=== PATIENT | female | born 1930 | race Caucasian/White ===

== ENCOUNTER 2016-09-27 14:35 | Inpatient (IN) | payer MEDICARE ==
[~2016-09-27] VITALS: Ht 152.4 cm; Wt 54.5 kg
[2016-09-27 14:35] VITALS: BP 163/64; PULSE 89; RESP 19; O2SAT 95
--- NOTE | 2016-09-27 15:22 | ED.REPORT ---
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 The patient did not hit her head and denies other injury/trauma. She was able to crawl but could not ambulate after the fall, due to pain. The patient denies head pain, neck pain, hand pain, wrist pain, or other symptoms. EMS found the patient with a BP of 150/80, a pulse of 100, and otherwise normal vital signs. Her last meal was 1200 today. Nursing Notes Stated Complaint: GLF RIGHT HIP PAIN Chief Complaint: Multiple Trauma/Fall Nursing Notes Reviewed: Yes Allergies: Coded Allergies: Cephalosporins (Verified Allergy, Severe, tongue swelling, itching, ) hydromorphone (Verified Allergy, Severe, itchy all over body, 09/27/16) codeine (Verified Allergy, Intermediate, vomiting, 09/27/16) Scheduled Calcium Carbonate (Calcium) 600 Mg Tablet 600 MG PO DAILY Cholecalciferol (Vitamin D3) (Vitamin D3) 1,000 Unit Tab.chew 1,000 UNIT PO DAILY Clotrimazole (Clotrimazole) 10 Mg Donna 10 MG BUCCAL TID Cyanocobalamin (Vitamin B12) 500 Mcg Tablet 1,000 MCG PO DAILY Estradiol (Estradiol) 1 Mg Tablet 1 MG PO DAILY Furosemide (Furosemide) 20 Mg Tab 20 MG PO QAM Lactobacillus Acidophilus (Acidophilus Lactobacillus) 1 Each Capsule 1 CAPSULE PO BID Niacinamide (Niacin) 500 Mg Tablet 500 MG PO TIDWM Omeprazole Magnesium (Prilosec Otc) 20 Mg Tablet.dr 20 MG PO QAM Penicillin V Potassium (Penicillin V Potassium) 500 Mg Tablet 500 MG PO BID Propranolol HCl (Propranolol HCl) 40 Mg Tablet 20 MG PO BID General Time Seen by MD: 15:20 Chief Complaint Fall Hx Obtained From: Patient Arrived By: Ambulance Onset Occurred: 1 - 4 hours ago Symptom Duration: Since onset Caused by: Fall on ground Location: Hip right Quality: Painful Severity: Current: Moderate Severity: Maximum: Moderate Pertinent Negative: Relieved by nothing Context: Immunizations Unknown Recent Healthcare: No recent doctor visit Past Medical History Past Medical History Osteomyelitis of the jaw on chronic antibiotics Past Surgical History Lower jaw amputation with fibular autograft prosthetic jaw Reports: Appendectomy, Cholecystectomy, Hysterectomy, Tonsillectomy Smoking History Unknown if Ever Smoker Social History Other Social History: Good social support Ambulatory Status Independent Review of Systems Constitutional: Denies: Fever Respiratory: Denies: Non-productive cough, Shortness of breath Musculoskeletal: Reports: Joint pain (Right hip), Denies: Extremity pain, Neck pain Neurologic: Reports: Problem walking (Due to pain), Denies: Headache Complete sys rev & neg: except as marked. GI: Denies: Diarrhea, Vomiting Physical Exam Initial Vital Signs Vital Signs (First) Date Time Temp Pulse Resp B/P Pulse Ox O2 Delivery O2 Flow Rate FiO2 09/27/16 14:35 36.6 89 19 163/64 95 Room Air Initial VS: Reviewed Head / Eyes: Atraumatic, Normocephalic Respiratory: Breath sounds normal, Clear to auscultation, No respiratory distress Cardiovascular: Regular rate & rhythm, Heart sounds normal Skin: Warm, Dry, No cyanosis Neurologic: Alert, Oriented, Nonfocal Psychiatric: Mood/affect normal, Behavior normal, Normal thought content General/Constitutional: Awake, Alert, No acute distress Neck: Supple, Full range of motion ENT: Airway patent, Mucous membranes moist Abnormal jaw Lower Extremity / Pelvis / MS: Atraumatic Right Hip: Positive: Leg externally rotated, Leg shortened, Tenderness present... (Over greater trochanter and with rotation) Interpretation & Diagnostics Lab Results Interpretation Result Diagram: 09/27/16 1514 09/27/16 1514 Test 09/27/16 15:14 09/27/16 16:43 White Blood Count 7.5th/mm3 (3.8-10.1) Red Blood Count 4.31mil/mm3 (3.90-5.20) Hemoglobin 13.0g/dL (12.0-15.6) Hematocrit 39.5% (35.0-46.0) Mean Corpuscular Volume 91.6fL (81-100) Mean Corpuscular Hemoglobin 30.2pg (27.0-35.0) Mean Corpuscular Hemoglobin Concent 32.9% (32.0-37.0) Red Cell Distribution Width 15.2% (12.3-15.4) Platelet Count 237bil/L (150-400) Neutrophils (%) (Auto) 54.8% (40-74) Lymphocytes (%) (Auto) 32.1% (14-46) Monocytes (%) (Auto) 7.7% (4-12) Eosinophils (%) (Auto) 4.4% (0-5) Basophils (%) (Auto) 0.3% (0-3) Hold Purple Top Tube Received (Received) Hold Blue Top Tube Received (Received) Sodium Level 134mEq/L (134-144) Potassium Level 4.0mEq/L (3.5-5.2) Chloride Level 95mEq/L (97-108) Carbon Dioxide Level 22mmol/L (18-29) Blood Urea Nitrogen 19mg/dL (8-27) Creatinine 0.84mg/dL (0.57-1.00) Estimat Glomerular Filtration Rate 92mL/min (>59) Glucose Level 191mg/dL (60-99) Calcium Level 9.9mg/dL (8.5-10.1) Total Bilirubin 0.3mg/dL (0.0-1.2) Aspartate Amino Transf (AST/SGOT) 24U/L (0-50) Alanine Aminotransferase (ALT/SGPT) 12U/L (0-32) Alkaline Phosphatase 49U/L (25-165) Total Protein 7.6g/dL (6.4-8.4) Albumin 4.0g/dL (3.4-5.0) Hold [place] Top Tube Received (Received) Urine Color Yellow (YELLOW) Urine Appearance Hazy (CLEAR,HAZY) Urine pH 6.0 (5.0-8.0) Urine Specific [place] 1.020 (1.003-1.035) Urine Protein Tracemg/dL (NEG,TRACE) Urine Glucose (UA) Negativemg/dL (NEGATIVE) Urine Ketones Negativemg/dL (NEGATIVE) Urine Occult Blood Negative (NEGATIVE) Urine Nitrite Negative (NEGATIVE) Urine Bilirubin Negative (NEGATIVE) Urine Urobilinogen Normalmg/dL (NORMAL) Urine Leukocyte Esterase Trace (NEGATIVE) Urine RBC 0-2/hpf (0-2) Urine WBC 0-5/hpf (0-5) Urine Epithelial Cells None/hpf (NONE-MOD) Urine Crystals None seen (NONE SEEN) Urine Bacteria Few/hpf (NONE-FEW) Urine Hyaline Casts None/lpf (NONE) Urine Granular Casts None seen (NONE SEEN) Urine Waxy Casts None seen (NONE SEEN) Urine Red Blood Cell Casts None seen (NONE SEEN) Urine White Blood Cell Casts None seen (NONE SEEN) Urine Mucus None seen (None Seen) Urine Trichomonas None seen (NONE SEEN) Urine Yeast None (NONE SEEN) Urinalysis Comment None Urine Culture Reflexed Indicated X-Ray Chest Interpretation Chest Xray Interpretation: IMPRESSION: New interstitial pulmonary opacities throughout both lungs may represent fluid imbalance or infection. Prominence of the angeline may represent overlapping otherwise normal vascular structures or prominent lymph node. If needed a chest CT with contrast could differentiate these possibilities. Dictated by: Bryce Bautista M.D. on 09/27/2016 at 16:20 View: Portable, 1 view Interpretation / Wet Read by: Interpret - Radiologist X-Ray Interpretation Xray Interpretation: IMPRESSION: Right subcapital femoral neck fracture with advanced right hip degenerative change and osteopenia. Dictated by: Bryce Bautista M.D. on 09/27/2016 at 16:13 Study Performed: 2 View X-Ray Ordered: Hip right Interpretation / Wet Read by: Interpret - Radiologist Xray Interpretation: IMPRESSION: Right femoral neck fracture. Osteopenia. Dictated by: Bryce Bautista M.D. on 09/27/2016 at 16:44 Study Performed: 2 View X-Ray Ordered: Femur right Interpretation / Wet Read by: Interpret - Radiologist Re-Eval/Medical Decision Re-Evaluation/Progress : Time of Eval: 16:16 Patient Status: Condition improved Re-Evaluation/Progress Note: Discussed patient's case with her daughter. Discussed with patient x-ray and lab results, diagnosis, and plan for admit. Patient agrees with plan for care and all questions were addressed. Consultation #1: Referral / Consult Name: Issa Dyer MD Consulted With: Orthopedic Call Returned at: 15:54 Senior Project Coordinator: Agrees with eval, Agrees with plan Note: Discussed patient's case. Will call back with x-ray results. Consultation #2: Referral / Consult Name: Issa Dyer MD Consulted With: Orthopedic Call Returned at: 16:20 Senior Project Coordinator: Agrees with eval, Agrees with plan Note: Discussed patient's case. Surgery scheduled for tomorrow. Consultation #3: Referral / Consult Name: Hieu Griffiths MD Consulted With: Hospitalist Call Returned at: 17:14 Senior Project Coordinator: Agrees with eval, Agrees with plan, Accepts admit Counseled Regarding: Diagnosis, Lab results, Need for admission Discharge & Departure Impression: Primary Impression: Fracture of femoral neck, right Encounter type: initial encounter Fracture type: closed Qualified Code: S72.001A - Fracture of unspecified part of neck of right femur, initial encounter for closed fracture Disposition: ADMITTED TO HOSPITAL Discharge Condition All VS Reviewed: Yes Condition: Improved Referrals: Angel Estes MD (PCP) Scribe Attestation Portions of this note were transcribed by Maria Del Carmen Kurtz. I, Dr. Quiles, personally performed the history, physical exam, and medical decision-making; I reviewed and confirmed the accuracy of the information in the transcribed note. Signed by: Peg Latham, 09/27/2016, 18:15 copies to: Angel Estes MD, Kirk H MD September 27, 2016 15:22 MARIA DEL CARMEN KURTZ September 27, 2016 15:27
[2016-09-27] MEDS ORDERED: fentaNYL-PF 50 mCg/mL 2 mL Inj IVPUSH PRN (15:50)
[2016-09-27] MEDS ORDERED: Ondansetron 2 mg/mL 2 mL Inj IVPUSH PRN (15:50)
[2016-09-27] MEDS ORDERED: Acetaminophen IV 1,000 MG in IV Premix 1 EACH IV ONE (15:50)
[2016-09-27 16:01] LABS: BASOPHILS % (AUTO) 0.3 % (0-3); EOSINOPHILS % (AUTO) 4.4 % (0-5); MONOCYTES % (AUTO) 7.7 % (4-12); Mean Corpuscular Hemoglobin 30.2 pg (27.0-35.0); Mean Corpuscular Volume 91.6 fL (81-100); NEUTROPHILS % (AUTO) 54.8 % (40-74); Platelet Count 237 bil/L (150-400)
[2016-09-27 16:15] VITALS: BP 123/85; PULSE 82; RESP 12; O2SAT 94
--- NOTE | 2016-09-27 16:15 | DRSVH ---
PROCEDURE: X-RAY RIGHT HIP COMPLETE, MINIMUM TWO VIEWS ([id number]) INDICATIONS: trauma/pain TECHNIQUE: 2 views of the hip were acquired. COMPARISON: None. FINDINGS: Bones: Impacted subcapital right femoral neck fracture. Minimal varus angulation. Advanced right hip degenerative change. Osteopenia.. Soft tissues: No suspicious soft tissue calcifications or masses. IMPRESSION: Right subcapital femoral neck fracture with advanced right hip degenerative change and os teopenia. Dictated by: Bryce Bautista M.D. on 09/27/2016 at 16:13 Approved by: Bryce Bautista M.D. on 09/27/2016 at 16:14
--- NOTE | 2016-09-27 16:29 | DRSVH ---
PROCEDURE: X-RAY CHEST ONE VIEW, PORTABLE ([id number]) INDICATIONS: PREOP TECHNIQUE: One view of the chest was acquired. COMPARISON: [facility], , CHEST 2VW, 04/08/2011, 12:02. FINDINGS: Surgical changes and devices: None. Lungs and pleura: No pleural effusions or pneumothorax. Diffuse bilateral interstitial pulmonary opa cities.. Mediastinum: New prominence of the left hilum. Heart size is normal. Bones and chest wall: No suspicious bony lesions. Overlying soft tissues appear unremarkable. IMPRESSION: New interstitial pulmonary opacities throughout both lungs may represent fluid imbalance or infection. Prominence of the angeline may represent overlapping otherwise normal vascular structures o r prominent lymph node. If needed a chest CT with contrast could differentiate these possibilities. Dictated by: Bryce Bautista M.D. on 09/27/2016 at 16:20 Approved by: Bryce Bautista M.D. on 09/27/2016 at 16:27
[2016-09-27] MEDS ORDERED: NIAC500T21 PO (16:36)
[2016-09-27] MEDS ORDERED: FERR240T5 PO (16:36)
[2016-09-27] MEDS ORDERED: PROP40TA5 PO (16:36)
[2016-09-27] MEDS ORDERED: LACT1CAP44 PO (16:36)
[2016-09-27] MEDS ORDERED: CHOL10008 PO (16:36)
[2016-09-27] MEDS ORDERED: CYAN500 PO (16:36)
[2016-09-27] MEDS ORDERED: ESTR1TAB24 PO (16:36)
[2016-09-27] MEDS ORDERED: FUR20 PO (16:36)
--- NOTE | 2016-09-27 16:50 | DRSVH ---
PROCEDURE: X-RAY RIGHT FEMUR, TWO VIEWS ([id number]) INDICATIONS: femur fx.-requested by [place] TECHNIQUE: 3 views of the femur were acquired. COMPARISON: None. FINDINGS: Bones: Subcapital right femoral neck fracture with mild impaction. Right hip and to lesser extent rig ht knee degenerative change. Osteopenia. Vascular calcifications. Soft tissues: No suspicious soft tissue calcifications or masses. IMPRESSION: Right femoral neck fracture. Osteopenia. Dictated by: Bryce Bautista M.D. on 09/27/2016 at 16:44 Approved by: Bryce Bautista M.D. on 09/27/2016 at 16:49
[2016-09-27] MEDS ORDERED: OMEP20TA24 PO (17:11)
[2016-09-27 17:12] LABS: APPEARANCE,URINE HAZY (CLEAR,HAZY); COLOR,URINE YELLOW (YELLOW)
--- NOTE | 2016-09-27 17:12 | PCM.HPMED ---
Subjective Date of Service September 27, 2016 Primary Provider: Admitting Physician: Primary Care Physician: Angel Estes MD Attending Physician: Chief Complaint: R hip pain History of Present Illness: Patient with past medical history of osteomyelitis of the jaw, has prostatic jaw and some chronic penicillin therapy is complaining of right hip pain, 5/10, sharp, exacerbated by palpation movements, partially alleviated by pain medications and rest, associated with generalized weakness. Patient experienced it mechanical fall which led to right hip pain. Patient was diagnosed with right femoral neck fracture. The orthopedic surgeons were contacted and planning surgery tomorrow. Otherwise patient is doing well. Review of Systems: REVIEW OF SYSTEMS: GENERAL: No weight loss, +malaise, + no fevers., SEE HPI HEENT: Negative for frequent or significant headaches, No changes in hearing or vision, no nose bleeds or other nasal problems All other reviewed and negative other than HPI. Allergies Coded Allergies: Cephalosporins (Verified Allergy, Severe, tongue swelling, itching, ) hydromorphone (Verified Allergy, Severe, itchy all over body, 09/27/16) codeine (Verified Allergy, Intermediate, vomiting, 09/27/16) PMH Osteomyelitis of the jaw Surgical History Prosthetic joint placement Social History Hx Alcohol Use: No Hx Substance Use: No Smoking Status: Light Tobacco Smoker (4 cig a day), Never Smoker, Unknown if Ever Smoker Exam Vital Signs Vital Sign - Last Date Time Temp Pulse Resp B/P Pulse Ox O2 Delivery O2 Flow Rate FiO2 09/27/16 16:15 82 12 123/85 94 Room Air 09/27/16 14:35 36.6 Exam PHYSICAL EXAM: GENERAL: Alert, not in distress, cooperative HEAD: atraumatic, normocephalic, no bruises. EYES: NELSON, EOMI, anicteric, able to fully open and close eyelids SKIN: Skin color normal, turgor normal. No visible rashes or lesions. EAR, NOSE, MOUTH, THROAT: Lips, oral mucosa, tongue are dry, pink, no lesions. Ears normal appearance, no lesions. NECK: no jugulovenous distention, supple; ROM normal. RESPIRATORY: Lungs clear to auscultation. Good diaphragmatic excursion. CARDIAC: normal S1 and S2; no rubs, or gallops; regular rhythm ABDOMEN: Abdomen soft, non-tender. BS normal. No masses or organomegaly. MUSCULOSKELETAL: ROM limited in the right hip, right hip is tender to palpation. Muscles are not tender, EXTREMITIES: no pitting edema in LE, no deformities, clubbing or skin discoloration. NEURO: Alert, oriented X 2, Cranial nerves II-XII intact, Grossly normal motor function.d PULSES: 2+ radial, 2+ carotid Lab and Diagnostics Result Diagram: 09/27/16 1514 09/27/16 1514 Assessment & Plan 85-year-old female with 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 Patient experienced a mechanical fall today developed right hip pain, was diagnosed with right femoral neck fracture. Right femoral neck fracture - Orthopedic surgeons following - DVT prophylaxis with heparin - History patient prophylaxis and Colace - Pain control with IV morphine when necessary - Pneumonia prophylaxis with spirometry History of jaw osteomyelitis, status post artificial chin/jaw placement - Stable - On oral penicillin. Patient does not remember the dose. Patient's daughter will bring the medications at hospital significant order it here. Mild hyponatremia - Stable - Monitor Code status: Patient will like to be full code. She will probably change, status after the orthopedic surgery. Disposition: discharge in 1-3 days after patient improves. Plan of care discussed with ED physician; Labs, radiology tests reviewed. Plan of care, medication side effects, home medication, diagnostic procedures and available alternatives were discussed and reviewed with patient/family . All questions answered. Patient/family verbalized understanding, approved and agreed to plan of care. Given patient's current condition, I certify, in my opinion inpatient services greater than two midnights are medically necessary for this patient. Please see H&P and MD progress notes for additional information about patient's course of treatment. Pain Evaluation: Adequate Pain Control GI Prophylaxis: Not indicated VTE Prophylaxis: Sub-Q [place] Resuscitation Status: CPR: Attempt Resuscitation Time spent 45 min Hieu Griffiths MD September 27, 2016 17:12
[2016-09-27 17:13] LABS: OCCULT BLOOD,URINE NEGATIVE (NEGATIVE); UROBILINOGEN,URINE NORMAL (NORMAL)
[2016-09-27] MEDS ORDERED: Polyethylene Glycol (PEG) 17 Gm Powder PO PRN (17:20)
[2016-09-27] MEDS: Heparin 5,000 Unit/mL Inj SUBQ SCH (17:20)
[2016-09-27] MEDS ORDERED: Alum-Mag Hydrox-Simeth 30 mL Suspension PO PRN (17:20)
[2016-09-27] MEDS ORDERED: NIACINAMIDE 500 MG PO SCH (17:30)
[2016-09-27] MEDS: Pantoprazole 20 mg ER24 Tablet PO SCH (17:30)
[2016-09-27 17:48] VITALS: BP 133/79; PULSE 67
[2016-09-27 18:01] VITALS: BP 139/68; PULSE 80; RESP 16; O2SAT 95
[2016-09-27 18:09] VITALS: PULSE 81; RESP 16; O2SAT 97
[2016-09-27] MEDS ORDERED: CALC600T12 PO (18:37)
[2016-09-27] MEDS ORDERED: Clotrimazole (18:37)
[2016-09-27] MEDS ORDERED: [UNRECOGNIZED DRUG - OTHER] (18:37)
--- NOTE | 2016-09-27 18:43 | NUR ---
Admit Pt admitted from ED at 1750 on [address], slide board used to transfer pt. Pt had increasing pain 11/09, morphine given. Pt on RA, s/l, VSS, CONDE, A&O x3. Understands that there will be some pain with fracture and is positioned for comfort. Pt already called for dinner. Pt oriented to room, call light and that surgeon will be in soon to see her, plan in surgery in the morning. Bed in low. Continue frequent rounding.
[2016-09-27] MEDS ORDERED: CLOT10TR BUCCAL (19:04)
[2016-09-27] MEDS ORDERED: PENI500T PO (19:05)
[2016-09-27 20:20] VITALS: BP 157/68; PULSE 88; RESP 20; O2SAT 93
[2016-09-27] MEDS ORDERED: LACTOBACILLUS ACIDOPHILUS PO SCH (20:30)
--- NOTE | 2016-09-27 20:44 | CONS ---
[address] [address] CONSULTATION REPORT PATIENT: SHAW IBRAHIM : 1930 MR#: [id number] ADMIT: 09/27/2016 JOB ID: [id number] DATE OF SERVICE: 09/27/2016 CPT code 41557-88, decision for surgery. CHIEF COMPLAINT: I was asked to see this 85-year-old female in orthopedic consultation by the medical service for displaced right femoral neck fracture. The patient tripped over another individual's dog and off the curb sustaining a displaced right femoral neck fracture. There was no loss of consciousness. The patient did not sustain any other injuries. She was not able to ambulate after the fall. PAST MEDICAL HISTORY: Pertinent for osteomyelitis of the jaw. She is on chronic penicillin VK 500 mg twice a day for prophylaxis. She has exposed hardware on the mandible. Has had a prior fibular autograft and has hardware over the entire jawline. Additional surgeries include an appendectomy, cholecystectomy, hysterectomy, and tonsillectomy. SOCIAL HISTORY: The patient lives in a senior citizen apartment complex. She has good social support and her daughter is a medical professional as well as her daughter's . INCOMPLETE: Dictation ends
--- NOTE | 2016-09-27 20:52 | CONS ---
[address] [address] CONSULTATION REPORT PATIENT: SHAW IBRAHIM : 1930 MR#: [id number] ADMIT: 09/27/2016 JOB ID: [id number] DATE OF SERVICE: 09/27/2016 CHIEF COMPLAINT: An 85-year-old female who I was asked to see in orthopedic consultation for a displaced right femoral neck fracture. CPT code 50811-61, decision for surgery. CHIEF COMPLAINT: This is an 85-year-old female who tripped over another individual's dog off the side of a curb, sustaining a displaced right femoral neck fracture. There was no loss of consciousness. PREVIOUS MEDICAL HISTORY: Significant for the fact that she had osteomyelitis in the jaw. She had her jaw resected with autograft strut graft and metal prosthesis with multiple screws and chronic exposed metal hardware in the jaw. The patient states she is otherwise relatively healthy. She was accompanied by her daughter who is a nurse practitioner and her daughter's is a physician. ALLERGIES: 1. CEPHALOSPORINS. 2. HYDROMORPHONE. 3. CODEINE. MEDICATIONS: The patient is able to take penicillin and is on chronic antibiotic suppression for her exposed hardware in her jaw. She is on penicillin VK 500 mg twice a day. Additional medications include vitamin D3, clotrimazole, vitamin B 12, estradiol, Lasix 20 mg in the morning, Lactobacillus, niacin, propranolol 40 mg twice a day. REVIEW OF SYSTEMS: HEENT: She has chronic issues with her jaw but is able to eat and swallow. She states she is not a mouth breather, only breathes through her nose. No decreased hearing. Respiratory: No shortness of breath. Cardiovascular: No chest pain. GI: No nausea, vomiting. : No dysuria. Musculoskeletal: Pain in the right hip. Hematologic: No easy bleeding or bruising. Psychiatric: No anxiety or depression. History of osteomyelitis of the jaw, chronic antibiotics and previous jaw resection. Additional surgeries: Appendectomy, cholecystectomy, hysterectomy and tonsillectomy. Patient is independent in her living condition. She lives in a senior citizen apartment complex. One of her daughters does have power of deputy attorney general. Both of the daughters will be present tomorrow for surgery. They will need to sign the surgical consent. PHYSICAL EXAMINATION: Well-developed, well-nourished, 85-year-old female, 152 cm, 54.55 kg. Temperature 36.6, pulse 89, respirations 19, blood pressure 163/64, pulse ox of 95. The patient does have an abnormal jaw prior reconstruction. She has exposed hardware in the jaw out through the skin but this is evidently chronic. There is no erythema around the area. The patient has pain in the right hip with any motion. Peripheral pulses are full. She is able to move the foot and has intact sensibility. The skin over the right hip is intact. Calves are soft. The patient is not able to ambulate due to the hip fracture. LABORATORY TESTING: White count 7500, hemoglobin 13, hematocrit 39.5, platelet count adequate at 237,000. PT not performed. Sodium 134, potassium 4, chloride 95, CO2 22, BUN 19. Creatinine 0.84. Liver function tests within normal limits. Random glucose at 191. Urinalysis: PH is 6, specific gravity 1.020, no bacteria. Chest x-ray: She has some interstitial pulmonary opacities. Heart size is normal. No pleural effusions. May require chest CT in the future to further delineate abnormalities according to Radiology. Hip x-ray shows she has a right displaced femoral neck fracture. AP pelvis was not ordered. She has films of the femur showing some degenerative changes of the knee, but no other fracture is noted. IMPRESSION: 1. Displaced right femoral neck fracture. 2. 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 3. Chronic history of osteomyelitis of the jaw requiring resection with exposed hardware, on chronic oral antibiotics. PLAN: The patient will require right hip bipolar hemiarthroplasty for treatment for displaced femoral neck fracture. Will have blood available in the blood bank. She also needs her nose swabbed for possible methicillin-resistant Staphylococcus aureus. I have contacted Dr. Santillan from Infectious Disease and he has indicated she should have preoperative IV vancomycin 1 g IV preoperatively. I have explained the risks and benefits of surgery to the patient. Her daughter was present. There is a risk for bleeding, infection, pain and stiffness, possibility for damage to surrounding neurovascular structures, potential for dislocation of the prosthesis and even fracture below the prosthesis or fracture of the femoral shaft while introducing the prosthesis. She also has a risk for deep venous thrombosis, possible pulmonary emboli, possible stroke, possible heart attack if she should develop pulmonary embolus. Both daughters will be present at surgery tomorrow. One of them have power of deputy attorney general and will need to sign the surgical consent. Will proceed with surgery tomorrow.
[2016-09-27 21:09] LABS: INR 0.93 ratio
[2016-09-28] VITALS (10 sets, daily range): BP systolic 102–139; BP diastolic 52–82; PULSE 62–90; RESP 12–18; O2SAT 91–95
[2016-09-28] MEDS: Heparin 5,000 Unit/mL Inj SUBQ SCH ×2 (00:11→07:48)
[2016-09-28] MEDS: Ondansetron 2 mg/mL 2 mL Inj IVPUSH PRN ×2 (00:14→04:22)
--- NOTE | 2016-09-28 04:52 | NUR ---
Pain Control Pt's pain under control with tylenol, morphine and zofran combo PRN. The small dose of ativan helped her sleep, pt reported dosing off and on. NPO status maintained since midnight. Anticipating surgery sometime today. Assisted pt with turning for both comfort and skin care. SCD's applied at beginning of shift. Hourly rounding ongoing.
[2016-09-28 05:31] LABS: Mean Corpuscular Hemoglobin 29.9 pg (27.0-35.0)
[2016-09-28] MEDS ORDERED: Vancomycin Inj 1,000 MG in IV Premix 1 EACH IV ONE ×2 (06:00→09:38)
[2016-09-28] MEDS: Pantoprazole 20 mg ER24 Tablet PO SCH (06:34)
[2016-09-28] MEDS ORDERED: Phenylephrine/NS 100 mCg/mL 10 mL Syringe IVPUSH ONE (06:37)
[2016-09-28] MEDS ORDERED: EPHEDrine/NS 5 mg/mL 5 mL Syringe ONE (06:37)
[2016-09-28] MEDS ORDERED: Propofol 10,000 mCg/mL 20 mL Inj ONE (06:37)
--- NOTE | 2016-09-28 07:51 | DRSVH ---
PROCEDURE: X-RAY PELVIS, ONE OR TWO VIEWS ([id number]) INDICATIONS: HIP FRACTURE TECHNIQUE: 1 view(s) of the pelvis acquired. COMPARISON: [facility], CR, XR HIP 2VW RT, 09/27/2016, 15:26. [facility], CR, PELVI S WITH BILATERAL HIPS, 10/12/2006, 15:58. FINDINGS: Bones: No change in impacted and moderately displaced right subcapital femoral neck fracture. Severe right hip joint space narrowing is present, as before, with periarticular osteophyte formation. Soft tissues: Visualized bowel gas pattern is normal. No suspicious soft tissue calcifications. IMPRESSION: 1. No change in right hip fracture and right hip osteoarthritis. Dictated by: Brandon Guillaume M.D. on 09/28/2016 at 7:49 Approved by: Brandon Guillaume M.D. on 09/28/2016 at 7:49
--- NOTE | 2016-09-28 08:28 | PCM.PNMED ---
Subjective Date of Service September 28, 2016 Subjective Patient is seen and examined. She is very hard of hearing, conversing comfortably. She talked with the help of her daughter. States her mouth is a bit dry. She takes penicillin twice a day for jaw prophylaxis. No other concerns are expressed Exam Vital Signs Vital Sign - Last Date Time Temp Pulse Resp B/P Pulse Ox O2 Delivery O2 Flow Rate FiO2 09/28/16 08:04 75 139/65 09/28/16 04:32 36.6 16 94 Room Air Intake and Output 09/27/16 09/27/16 09/28/16 Cumulative From/Thru 15:00 23:00 07:00 09/27/16 14:35 - 09/28/16 06:15 Intake Total 0 ml 450 ml 450 ml Output Total 0 ml 600 ml 600 ml Balance 0 ml -150 ml -150 ml Intake Oral 0 ml 450 ml 450 ml Output Urine Total 0 ml 600 ml 600 ml # Bowel Movements 0 0 Exam Gen.: No acute distress laying in bed HEENT: Enlarged right-sided jaw, Travis prosthesis is visible Heart: Faint systolic murmur without any radiation, regular rate and rhythm Lungs: Clear to auscultation bilaterally no crackles or wheezes Abdomen flat, soft, nontender Extremities: Negative for edema, patient is moving her right foot around Vascular: Dorsalis pedis 2+ bilaterally Neck: Negative for murmurs and bruits Psych: Negative for anxiety Neuro: No focal deficits IVs and Medications Medications Reviewed: Medications were reviewed in detail Lab and Diagnostics Result Diagram: 09/28/1651109/28/16511 Assessment & Plan 85-year-old female with 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 Patient experienced a mechanical fall today developed right hip pain, was diagnosed with right femoral neck fracture. Right femoral neck fracture - Orthopedic surgeons following: Patient is scheduled to go to the OR this a.m. - DVT prophylaxis with heparin - Pain control with IV morphine when necessary - Pneumonia prophylaxis with spirometry - Patient is given beta wilber prior to surgery History of jaw osteomyelitis, status post artificial chin/jaw placement - Stable - On oral penicillin. Patient takes penicillin twice a day 500 mg, increase his dose to 3 times a day as needed. Dr. De La Cruz is contacted over the phone and she confirms this dose - We will continue her home regimen ( a.m. doses held due to pre-operative antibiotics vancomycin) Tachycardia of unknown origin, chronic : -- Patient states that propranolol was given to her due to some heart rate issues in the remote past. -- Patient is given beta wilber prior to surgery GERD, chronic -- Continue home meds Mild hyponatremia -- Resolved Code status: DaughterMj De La Cruz states that, they do not want any heroic measures. They would want something done only transiently if it is minor. But otherwise they do not want intubations outside of the OR. They do not want cardiac resuscitation. Disposition: discharge in 1-3 days after patient improves. ] Pain Evaluation: Adequate Pain Control GI Prophylaxis: Not indicated VTE Prophylaxis: Sub-Q [place] VTE Mechanical Devices: Intermittant Pneumatic CD Resuscitation Status: CPR: Attempt Resuscitation (Dr. holguin says that they do not want any heroic measures, only attempt transient measures) Acacia Andres DO September 28, 2016 08:28
[2016-09-28] MEDS ORDERED: 0.9% Sodium Chloride 1,000 ML IV SCH (08:35)
--- NOTE | 2016-09-28 09:21 | NUR ---
Off Unit Patient off floor to PACU via bed.
[2016-09-28] MEDS ORDERED: Lactated Ringer's 1,000 ML IV ONE (09:54)
--- NOTE | 2016-09-28 10:32 | PCM.HPANE ---
Patient Data Surgeon Admitting Provider:Hieu Griffiths MD Attending Provider:Hieu Griffiths MD Primary Care Physician:Angel Estes MD Other Provider:Tung Euceda Anesthesia Reason for Visit Right Hip Fracture Ht/WT & BMI Height (Feet): 5 Height (Inches): 0.00 Weight (Kilograms): 54.550 Body Mass Index 23.61 Allergies Coded Allergies: Cephalosporins (Verified Allergy, Severe, tongue swelling, itching, ) hydromorphone (Verified Allergy, Severe, itchy all over body, 09/27/16) codeine (Verified Allergy, Intermediate, vomiting, 09/27/16) Past Anesthesia History Anesthesia History: Denies:: Anesthesia Reactions Diabetes History Hx Diabetes?: No Current Bedside Blood Glucose: 192 MRSA MRSA: No Medications Reported Medications Penicillin V Potassium 500 Mg [id number] Mg PO BID Ref 0 09/27/16 Clotrimazole 10 Mg [id number] Mg BUCCAL TID 09/27/16 Calcium Carbonate (Calcium)600 Mg [id number] Mg PO DAILY 09/27/16 Omeprazole Magnesium (Prilosec Otc)20 Mg Tablet.dr20 Mg PO QAM 09/27/16 Lactobacillus Acidophilus (Acidophilus Lactobacillus)1 Each Capsule1 Capsule PO BID 09/27/16 Niacinamide (Niacin)500 Mg [id number] Mg PO TIDWM 09/27/16 Cyanocobalamin (Vitamin B12)500 Mcg Tablet1,000 Mcg PO DAILY 09/27/16 Cholecalciferol (Vitamin D3) (Vitamin D3)1,000 Unit Tab.chew1,000 Unit PO DAILY 09/27/16 Furosemide 20 Mg Tab20 Mg PO QAM 09/27/16 Propranolol HCl 40 Mg Kzrmin67 Mg PO BID 09/27/16 Estradiol 1 Mg Tablet1 Mg PO DAILY 09/27/16 Discontinued Reported Medications [Clotrimazole] No Conflict Check 09/27/16 [PenVK] No Conflict Check 09/27/16 Ferrous Gluconate 240 Mg [id number] Mg PO DAILY Ref 0 09/27/16 History History of ENT Problems?: Yes HEENT History: Positive for:: Cataracts (S/P L. eye repair ) Dysphagia (Soft food. 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 S/p mandibular reconstruction. No mandibular teeth Hx of Heart Problems?: No Cardiovascular History: Positive for:: Edema Irregular Heartbeat (On propanolol) Denies:: Cardiac Surgery Chest Pain Congestive Heart Failure Heart Murmur Pacemaker Thrombophlebitis Other History/Comments Prior to fracture, greater than 4 mets. No CP or hx [place]. Reportedly had a normal TTE in recent past Hx of Respiratory Problem?: No Respiratory History: Denies:: Asthma COPD Chest Surgery Dyspnea Emphysema Hemoptysis Pneumonia Tuberculosis Hx Neurologic Problems?: Yes Neurological History: Positive for:: Dizziness (Not for years) Denies:: Alzheimer's Disease CVA Dementia Headaches Parkinson's Disease Seizures Other Neurological Pertinent: Lives in independent senior community Hx of GI Problems?: Yes Hx of Problems?: Yes Genitourinary History: Positive for:: Urinary Tract Infection (Maybe) Denies:: HX of Hemodialysis Kidney Stones HX of Peritoneal Dialysis: No Other Pertinent History: Total hysterectomy Female Hx: Denies:: Currently Endometriosis Pelvic Inflammatory Problems with Breasts? Hx Musculoskeletal Problems?: Yes Musculoskeletal History: Positive for:: Joint Replacement (Jaw bone craft) Denies:: Back Injury Musculoskeletal Trauma Hx of Psycho/Social Problems?: No Psycho Social History: Denies:: Anxiety Bipolar Disorder Hx Depression Suicide Attempt Hx Surgeries?: Yes (low jaw amputation, hyst, appy, lottie, tonsillectomy) Hx Any Other Health Problems?: No Other History: Positive for:: Hospitalization Denies:: Cancer Thyroid Disease History Blood Transfusions: Positive for:: Accept Blood Products? Blood Transfusions Denies:: Blood Transfuse Reaction Hx Diabetes: NoBedside Blood Glucose: 192 Hx Alcohol Use: NoHx Substance Use: No Smoking Status: Light Tobacco Smoker (4 cig a day) Never Smoker Unknown if Ever Smoker Have You Smoked inLast 12 mo: YesApprox How Many Cigarettes/day: 5 cigs/day Stop/Bang Treated for Sleep Apnea?: No Do You Have a CPAP Machine?: No S-Snoring: Do You Snore Loudly: No T-Tired: feel tired, fatigued: No O-Obsered: Observed not breath: No P-Blood Pressure: treated: No B- Body Mass Index > 35 kg/m2: No A- Age over 50: Yes N- Neck Large Circumference: No G- Gender Male: No ASHLEY Total Score: 0 Risk Assessment Category Category 1A: Patient has history of documented sleep apnea, and HAS NOT received any narcotic, sedative or anesthesia administration during this stay. Category 1B: Patient has history of documented sleep apnea, and HAS received any narcotic , sedative or anesthesia administration during this stay Category 2: Patient has SUSPECTED Obstructive Sleep Apnea, and HAS received any narcotic , sedative or anesthesia administration during this stay. Category 3: Patient has SUSPECTED Obstructive Sleep Apnea and HAS NOT received narcotic, sedative or anesthesia administration during this stay. Category 4: Outpatient in Procedural Areas with known sleep apnea or who screen positive for High Risk via the STOP/BANG questionnaire. Exam Exam Vital Signs Vital Signs Date Time Temp Pulse Resp B/P Pulse Ox O2 Delivery O2 Flow Rate FiO2 09/28/16 08:04 75 139/65 09/28/16 04:32 36.6 73 16 127/69 94 Room Air General Appearance: Alert, Oriented X3 HEENT/AIRWAY: MP 2, Neck Movement (FROM) Lungs: Clear to Auscultation, Clear to Percussion Heart: Exam Unremarkable, Regular Rate/Rhythm Meds/Labs/Diagnostics Admission Meds Current Medications Acetaminophen/ Premix (Tylenol IV/IV Premix) 100 ml @ 400 mls/hr ONCE ONCE IV Last administered on 09/27/16 16:15; Start 09/27/16 at 15:50; Stop 09/27/16 at 16:04; Status DC Heparin Sodium (Porcine) (Heparin Inj) 5,000 unit Q8 SUBQ Last administered on 09/28/16 00:11; Start 09/27/16 at 17:20; Stop 09/28/16 at 08:31; Status DC Propranolol HCl (Inderal) 20 mg BID PO Last administered on 09/28/16 08:08; Start 09/27/16 at 20:30 Lactobacillus Acidophilus (Bacid) 1 tablet BID PO Last administered on 20:54; Start 09/27/16 at 20:30 Pantoprazole (Protonix) 20 mg 0630 PO Last administered on 09/28/16 06:34; Start 09/27/16 at 17:30 Penicillin V Potassium (Penicillin VK) 500 mg TID PO Last administered on 20:58; Start 09/27/16 at 20:30; Stop 09/28/16 at 08:31; Status DC Lorazepam (Ativan Inj) 0.25 mg ONCE ONCE IVPUSH Last administered on t 22:56; Start 09/27/16 at 21:55; Stop 09/27/16 at 22:00; Status DC Bedside Blood Glucose: 192 Labs Test 09/27/16 15:14 09/27/16 16:43 09/28/16 05:12 Neutrophils (%) (Auto) 54.8% (40-74) Lymphocytes (%) (Auto) 32.1% (14-46) Monocytes (%) (Auto) 7.7% (4-12) Eosinophils (%) (Auto) 4.4% (0-5) Basophils (%) (Auto) 0.3% (0-3) Hold Purple Top Tube Received (Received) Prothrombin Time 9.9sec (8.1-12.5) Prothromb Time International Ratio 0.93ratio Activated Partial Thromboplast Time 26.8sec (22.8-33.0) Hold Blue Top Tube Received (Received) Total Bilirubin 0.3mg/dL (0.0-1.2) Aspartate Amino Transf (AST/SGOT) 24U/L (0-50) Alanine Aminotransferase (ALT/SGPT) 12U/L (0-32) Alkaline Phosphatase 49U/L (25-165) Total Protein 7.6g/dL (6.4-8.4) Albumin 4.0g/dL (3.4-5.0) Hold [place] Top Tube Received (Received) Urine Color Yellow (YELLOW) Urine Appearance Hazy (CLEAR,HAZY) Urine pH 6.0 (5.0-8.0) Urine Specific [place] 1.020 (1.003-1.035) Urine Protein Tracemg/dL (NEG,TRACE) Urine Glucose (UA) Negativemg/dL (NEGATIVE) Urine Ketones Negativemg/dL (NEGATIVE) Urine Occult Blood Negative (NEGATIVE) Urine Nitrite Negative (NEGATIVE) Urine Bilirubin Negative (NEGATIVE) Urine Urobilinogen Normalmg/dL (NORMAL) Urine Leukocyte Esterase Trace (NEGATIVE) Urine RBC 0-2/hpf (0-2) Urine WBC 0-5/hpf (0-5) Urine Epithelial Cells None/hpf (NONE-MOD) Urine Crystals None seen (NONE SEEN) Urine Bacteria Few/hpf (NONE-FEW) Urine Hyaline Casts None/lpf (NONE) Urine Granular Casts None seen (NONE SEEN) Urine Waxy Casts None seen (NONE SEEN) Urine Red Blood Cell Casts None seen (NONE SEEN) Urine White Blood Cell Casts None seen (NONE SEEN) Urine Mucus None seen (None Seen) Urine Trichomonas None seen (NONE SEEN) Urine Yeast None (NONE SEEN) Urinalysis Comment None Urine Culture Reflexed Indicated White Blood Count 9.9th/mm3 (3.8-10.1) Red Blood Count 4.11mil/mm3 (3.90-5.20) Hemoglobin 12.3g/dL (12.0-15.6) Hematocrit 37.4% (35.0-46.0) Mean Corpuscular Volume 91.0fL (81-100) Mean Corpuscular Hemoglobin 29.9pg (27.0-35.0) Mean Corpuscular Hemoglobin Concent 32.9% (32.0-37.0) Red Cell Distribution Width 14.9% (12.3-15.4) Platelet Count 217bil/L (150-400) Sodium Level 136mEq/L (134-144) Potassium Level 4.1mEq/L (3.5-5.2) Chloride Level 98mEq/L (97-108) Carbon Dioxide Level 27mmol/L (18-29) Blood Urea Nitrogen 13mg/dL (8-27) Creatinine 0.66mg/dL (0.57-1.00) Estimat Glomerular Filtration Rate 122mL/min (>59) Glucose Level 132mg/dL (60-99) Calcium Level 9.1mg/dL (8.5-10.1) Plan Impression Patient chart reviewed, patient interviewed and anesthestic plan with risks, benefits, and alternatives discussed, and informed consent obtained. ASA Physical Status: ASA3 Severe Disease Anesthetic Plan: SAB (with GA as backup) Bene/Risks/Altern/Consents: Yes HP Complete Prior to Induction: Yes Other R/b/a discussed with pt. and pt's 2 daughters. Plan for SAB with GA as backup Wyatt Black MD September 28, 2016 10:27
[2016-09-28] MEDS ORDERED: Ondansetron 2 mg/mL 2 mL Inj IVPUSH PRN (10:40)
[2016-09-28] MEDS ORDERED: Lactated Ringer's 500 ML IV PRN (10:40)
[2016-09-28] MEDS ORDERED: Labetalol 5 mg/mL 4 mL Inj IV PRN (10:40)
[2016-09-28] MEDS ORDERED: fentaNYL-PF 50 mCg/mL 2 mL Inj IVPUSH PRN (10:40)
[2016-09-28] MEDS ORDERED: Lactated Ringer's 1,000 ML IV SCH (10:40)
[2016-09-28] MEDS ORDERED: EPHEDrine Sulfate 50 mg/mL Inj IVPUSH PRN (10:40)
[2016-09-28] MEDS ORDERED: MetoCLOpramide 5 mg/mL 2 mL Inj IVPUSH PRN (10:40)
[2016-09-28] MEDS ORDERED: Phenylephrine 10,000 mCg/mL Inj IVPUSH PRN (10:40)
[2016-09-28] MEDS ORDERED: Atropine 0.4 mg/mL Inj IVPUSH PRN (10:40)
--- NOTE | 2016-09-28 11:42 | NUR ---
Social Work: Initial Assessment D: EMR reviewed. Pt is a 85 y/o female admitted for right hip fracture per H&P. BARRY met with pt's daughter Tami Gonzales ([phone]) at bedside to conduct initial assessment. Pt was in operating room for right hip fracture. BARRY explained role and wrote phone number on white board. BARRY provided pt's daughter with DPOA/advanced directive ppw and encouraged her to provide a copy to the hospital once complete. Pt has no Hx of HH or SNF. Pt has no LTC or VA insurance. Pt is independent with ADLs. Pt does not use any DME. Pt does not drive. Pt is independent at baseline. Pt lives alone in an apartment with elevator access and no stairs to enter. Pt's daughter told SW that she thinks pt will need SNF after surgery. SW discussed potential need and told daughter that pt will likely need rehab after surgery but that will be determined by PT and MD. MD placed order for SW consult to discuss SNF or HH. SW provided daughter with choice list. Daughter chose [facility]. SW will wait to make referral to [facility] until pt returns to room as pt is decisional. SW will continue to follow. A: Pt for whom a SNF or HH has been deemed medically necessary. P: SW to confirm SNF choice of [facility] with pt once pt returns from surgery. SW to make referral to pt's choice. SW will continue to follow. XIOMY Esposito Addendum: 09/28/16 at 1151 by HARRY THOMPSON Amended: Links added.
[2016-09-28] MEDS ORDERED: Bupivacaine-MPF 0.5% W/EPI 30 mL Inj INFILTRATE ONE (12:58)
--- NOTE | 2016-09-28 13:53 | DRSVH ---
PROCEDURE: X-RAY PELVIS ONE OR TWO VIEWS ([id number]) INDICATIONS: RIGHT HIP ARTHROPLASTY TECHNIQUE: Intra-operative view of the pelvis and hip acquired. COMPARISON: None. FINDINGS: Bones: Intraoperative devices prior to placement of arthroplasty prostheses are in expected position s. No fractures or suspicious bony lesions. Soft tissues: Overlying surgical retractors are present, along with other intraoperative changes. IMPRESSION: Intraoperative image obtained during right hip arthroplasty procedure. Dictated by: Brandon Guillaume M.D. on 09/28/2016 at 13:52 Approved by: Brandon Guillaume M.D. on 09/28/2016 at 13:52
[2016-09-28] MEDS ORDERED: diphenhydrAMINE 25 mg Capsule PO PRN (14:00)
[2016-09-28] MEDS ORDERED: Vancomycin Dose per Pharmacist XX SCH (14:00)
[2016-09-28] MEDS ORDERED: HYDROcodone-APAP 5-325 mg Tablet PO PRN (14:00)
--- NOTE | 2016-09-28 14:28 | DRSVH ---
PROCEDURE: X-RAY PELVIS ONE OR TWO VIEWS ([id number]) INDICATIONS: RIGHT HIP SURGERY TECHNIQUE: Intra-operative view of the pelvis and hip acquired. COMPARISON: None. FINDINGS: Bones: Intraoperative devices prior to placement of arthroplasty prostheses are in expected position s. No fractures or suspicious bony lesions. Soft tissues: Overlying surgical retractors are present, along with other intraoperative changes. IMPRESSION: Intraoperative image obtained during right hip arthroplasty. Dictated by: Brandon Guillaume M.D. on 09/28/2016 at 14:26 Approved by: Brandon Guillaume M.D. on 09/28/2016 at 14:26
--- NOTE | 2016-09-28 14:37 | DRSVH ---
PROCEDURE: X-RAY PELVIS W/LAT HIP (RT) ([id number]) INDICATIONS: s/p right olamide hip TECHNIQUE: AP pelvis with lateral view(s) of the right hip(s). COMPARISON: [facility], , XR PELVIS 1 OR 2VW, 09/28/2016, 12:05. FINDINGS: Bones: Status post right hip arthroplasty. Hardware components are in expected positions. No fractur es or dislocations. Pelvic ring appears intact. No suspicious bony lesions. Soft tissues: The visualized bowel gas pattern is normal. No suspicious soft tissue calcifications. IMPRESSION: Expected appearance following right hip arthroplasty. Dictated by: Brandon Guillaume M.D. on 09/28/2016 at 14:35 Approved by: Brandon Guillaume M.D. on 09/28/2016 at 14:36
--- NOTE | 2016-09-28 14:56 | NUR ---
Back on Unit Patient back on floor from PACU via bed. Patient nauseated and vomiting. 8mg ondansetron given. Denies hip pain at this time. Dressing CDI. VSS. A&Ox3. Daughter and son-in-law at bedside. Call light and tray table within reach. Will continue to monitor patient hourly
[2016-09-28] MEDS ORDERED: 0.9% Sodium Chloride 100 ML ONE (17:11)
--- NOTE | 2016-09-28 17:24 | PCM.ANEP1 ---
Post Anesthesia PACU Phase 1 Assessment Vital Signs Vital Signs Date Time Temp Pulse Resp B/P Pulse Ox O2 Delivery O2 Flow Rate FiO2 09/28/16 15:12 36.6 65 18 114/67 95 Room Air 09/28/16 14:41 36.5 64 16 102/74 92 Room Air 09/28/16 14:28 64 12 122/60 92 Room Air 09/28/16 14:15 65 12 113/76 91 Room Air 09/28/16 14:08 62 17 117/82 92 Room Air 09/28/16 13:56 36.7 69 16 117/52 93 Room Air Anesthetic Administered: SAB Level of Alertness: Awake, talking CONDE's with Equal Strength: Yes Pain: Yes Pain Scale Score: 5 Nausea or Vomiting: No CV Function & Hydration Stable: No Airway Device: none Lungs: Clear to Auscultation, Clear to Percussion PACU Phase 2 Assessment Complications: No Follow up Care: No Patient Instructions Provided: N/A Wyatt Black MD September 28, 2016 17:24
[2016-09-28] MEDS: Acetaminophen IV 1,000 MG in IV Premix 1 EACH IV SCH (17:35)
[2016-09-28] MEDS: Sodium Chloride LOK Flush 10 mL Syringe IV SCH (17:35)
[2016-09-28] MEDS ORDERED: Heparin 5,000 Unit/mL Inj SUBQ SCH (20:30)
[2016-09-28] MEDS: Senna-Docusate 8.6-50 mg Tablet PO SCH (20:44)
[2016-09-28] MEDS ORDERED: COLC0.6T52 PO (20:51)
[2016-09-28] MEDS ORDERED: TRIA0.1220 PO (20:51)
[2016-09-28] MEDS ORDERED: Clotrimazole Troche 10 mg Tablet MUC_MEMBRM PRN (21:05)
--- NOTE | 2016-09-28 22:41 | OP ---
[address] [address] OPERATIVE REPORT PATIENT: SHAW IBRAHIM : 1930 MR#: [id number] ADMIT: 09/27/2016 JOB ID: [id number] DATE OF SURGERY: 09/28/2016 PREOPERATIVE DIAGNOSIS(ES): Displaced right femoral neck fracture. POSTOPERATIVE DIAGNOSIS(ES): Displaced right femoral neck fracture. PROCEDURE: Right hip bipolar hemiarthroplasty, cemented; CPT code 52207V. IMPLANT UTILIZED: [employer] Atoka stem, 28 mm head, 46 mm bipolar cup, +5 mm neck and a #2 cemented stem, also with the central stem stabilizer and a small canal plug. SURGEON: Issa Dyer MD CONTAINER WASHER MACHINE: Gunjan Zamarripa PA-C. Gunjan Zamarripa was an integral portion of the procedure, helping to position the patient and supply traction and reduction maneuvers for placing the prosthesis. ANESTHESIA: Spinal anesthetic. SPECIMEN: Femoral head was sent to Pathology. 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 These were all removed. INDICATIONS: This is an 85-year-old female who tripped walking her sister's dog. She tripped over a curb sustaining the above injury. Of note, she has a significant prior history of mandibular reconstruction and has exposed hardware in the mandible. Infectious Disease has suggested that we place her on IV vancomycin. She does have a history of allergy to cephalosporins. PROCEDURE IN DETAIL: Under adequate spinal anesthesia, the patient was placed on the operating room table in the left lateral decubitus position with the right hip up. After appropriate time-out was called, the right hip was prepped and draped in a sterile fashion. A posterolateral hip approach was utilized. The patient had a relatively large area of subcutaneous tissue around her buttocks and this necessitated making this incision slightly longer. The incision was carried down through the tensor fascia silvina. A Charnley retractor was placed in the wound. Care was taken to protect the sciatic nerve. The piriformis tendon was identified, tagged and removed from the edge of the femur. The proximal portion of the external rotators were identified, tagged and removed from the proximal portion of the femur. Soft tissues were elevated off the joint capsule. Again, taking care to protect the sciatic nerve more posteriorly, the hip capsule was incised in a T-fashion and tagged for later repair. The femoral head was then removed from the acetabulum. It was then sized and it was felt that a 46 mm would be the best size component. A 45 mm was slightly too small. Utilizing the template, a femoral neck cut was made approximately 1 cm proximal to the lesser trochanter. Care was taken to trim soft tissue around the greater trochanter in order to lateralize the prosthesis. The wire bound box machine operator was utilized to make an initial box cut. A canal finder was then utilized as well as the canal lateralizer reamer. The patient was noted to be very small with a small femoral diameter. She was broached first through a 1 broach and then to a #2 broach. A #3 broach was only partially broached and it was noted that it would be too large. The #2 broach was then seated with a +1.5 mm neck and a 46 mm bipolar component. At that point, it appeared that she was just slightly too short. X-rays were taken with permanent x-ray. The #2 broach was slightly countersunk and I therefore opted to do calcar reaming. I then tried a +5 mm femoral neck component with a 46 mm bipolar component. The hip was reduced and placed through range of motion and it was felt to be the best fit. X-rays confirmed good length on the prosthesis. The Charnley retractor was then replaced and the components were removed. The wound was thoroughly irrigated with antibiotic solution. The canal was then prepped with a canal brush and irrigation. A small femoral plug was then carefully placed in the femoral canal at the appropriate depth position and this was checked with one of the rasps for positioning and depth. The medium viscosity cement was then mixed. It was placed into the femoral canal with a pressure gun and a #2 [place]oka stem was then cemented in position with a small amount of anteversion. Care was taken to remove any excess cement. Once the cement had hardened, again I irrigated the wound to look for any fragments of cement and these were removed. A +5 neck with 28 mm head and a 46 mm bipolar component were then tapped in position on the femoral stem. The hip was then reduced and placed through range of motion and felt to be stable with appropriate leg lengths. The hip capsule was then repaired with interrupted [id number]-[id number] sutures of 0 Ethibond, also utilizing the tagged sutures to supplement the repair. The piriformis tendon was repaired to the edge of the proximal femur, as well as a portion of the external rotators. Again, care was taken to protect the sciatic nerve throughout the procedure. The Charnley retractor was subsequently removed. The leg was placed on a pillow on the Andersen stand. Tensor fascia silvina was closed with [id number]-vyohm sutures of #1 Vicryl. Subcutaneous layers were closed with interrupted sutures of 0 and 2-0 Vicryl. The wound layers were irrigated in between. I did place 0.5% plain Marcaine in the skin, the dosage according to Anesthesia. The skin was reapproximated with alexsandra. Adaptic and dry sterile dressings were applied. The patient was placed in a hip abduction pillow. She was moved back to her bed in stable condition. Sponge and needle counts were correct. No complications. She was taken to recovery room in stable condition. X-rays in recovery room confirmed good position of the prostheses with an adequate cement mantle. PLAN: The patient will be mobilized to tolerance over the next couple of days, anywhere from 50% to 75% of her body weight with a rolling walker. Is alexsandra will need to be removed in two weeks. She may see one of the PAs in the office in two weeks with staple removal and I will see her back in the office at six weeks. CC: [facility]
[2016-09-29 00:23] VITALS: BP 114/56; PULSE 83; RESP 20; O2SAT 92
[2016-09-29] MEDS: Sodium Chloride LOK Flush 10 mL Syringe IV SCH ×3 (01:26→18:33)
[2016-09-29] MEDS: Acetaminophen IV 1,000 MG in IV Premix 1 EACH IV SCH ×3 (01:27→18:34)
--- NOTE | 2016-09-29 04:48 | NUR ---
Pain Reports very little pain except when moving, scheduled IV Tylenol appears to be providing adequate relief. Unable to get much sleep as she depends on benzo sleep aids at home, inappropriate at this time per Md. Med rec updated, home meds locked in drawer. Nausea resolved, lucio remains until PT gets pt up for BSC; able to reposition self in bed for comfort and skin care. Hourly rounding ongoing.
[2016-09-29 05:48] LABS: BASOPHILS % (AUTO) 0.1 % (0-3); EOSINOPHILS % (AUTO) 0.4 % (0-5); Mean Corpuscular Hemoglobin 30.1 pg (27.0-35.0); Mean Corpuscular Volume 92.3 fL (81-100); NEUTROPHILS % (AUTO) 70.8 % (40-74); Platelet Count 191 bil/L (150-400)
[2016-09-29 05:51] VITALS: BP 101/52; PULSE 88; RESP 20; O2SAT 93
[2016-09-29] MEDS: Pantoprazole 20 mg ER24 Tablet PO SCH (06:15)
--- NOTE | 2016-09-29 08:02 | PCM.PNORTH ---
Subjective Date of Service: September 29, 2016 Visit Information: Reason for Visit Right Hip Fracture Surgery/Surgery Date Post-Op Day # 1 Date of Admission: September 27, 2016 at 17:21 Hospital Day # Subjective Patient states she is having no pain at this time. Nursing states she has only been taking tylenol for pain. Patient states when she tries to move her butt, her hip is uncomfortable in the back. She denies numbness, tingling or calf pain. Postop General: No Complaints, No Shortness of Breath, No Chest Pain Pain Management: Good Pain Control Objective Exam Objective Patient laying in bed Vital Signs and I/O Vital Sign - Last Date Time Temp Pulse Resp B/P Pulse Ox O2 Delivery O2 Flow Rate FiO2 09/29/16 05:51 36.9 88 20 101/52 93 Room Air Intake and Output 09/28/16 09/28/16 09/29/16 Cumulative From/Thru 15:00 23:00 07:00 09/27/16 14:35 - 09/29/16 06:39 Intake Total 925 ml 482 ml 300 ml 2157 ml Output Total 680 ml 100 ml 500 ml 1880 ml Balance 245 ml 382 ml -200 ml 277 ml Intake Oral 354 ml 300 ml 1104 ml IV Total 925 ml 128 ml 1053 ml Output Urine Total 630 ml 100 ml 500 ml 1830 ml Estimated Blood Loss 50 ml 50 ml # Bowel Movements 0 Lab & Micro Results Laboratory Tests Test 09/29/16 05:20 White Blood Count 10.4th/mm3 (3.8-10.1) Red Blood Count 3.12mil/mm3 (3.90-5.20) Hemoglobin 9.4g/dL (12.0-15.6) Hematocrit 28.8% (35.0-46.0) Mean Corpuscular Volume 92.3fL (81-100) Mean Corpuscular Hemoglobin 30.1pg (27.0-35.0) Mean Corpuscular Hemoglobin Concent 32.6% (32.0-37.0) Red Cell Distribution Width 14.8% (12.3-15.4) Platelet Count 191bil/L (150-400) Neutrophils (%) (Auto) 70.8% (40-74) Lymphocytes (%) (Auto) 15.5% (14-46) Monocytes (%) (Auto) 13.0% (4-12) Eosinophils (%) (Auto) 0.4% (0-5) Basophils (%) (Auto) 0.1% (0-3) Sodium Level 138mEq/L (134-144) Potassium Level 4.1mEq/L (3.5-5.2) Chloride Level 100mEq/L (97-108) Carbon Dioxide Level 24mmol/L (18-29) Blood Urea Nitrogen 11mg/dL (8-27) Creatinine 0.71mg/dL (0.57-1.00) Estimat Glomerular Filtration Rate 112mL/min (>59) Glucose Level 135mg/dL (60-99) Calcium Level 9.1mg/dL (8.5-10.1) Microbiology 09/27/16 MRSA (PCR) - Final, Complete 09/27/16 Urine Culture - Preliminary, Resulted Result Diagram: 09/29/16 0509/29/16 0520 General Appearance: Alert, Oriented X3, Cooperative, No Acute Distress Extremities: Distal Pulses Palpable, Warm, No Compartment Syndrom Noted, Thigh & Calf Soft/Nontender Postop Sensory Motor: Distal Motor Intact, Movement in Toes, Distal Sensation Intact, NVI Distally SURGICAL WOUND : Wound Location/Description Perioperative dressing clean, dry and intact Incision General Appearance: No Direct Observation Activity: Ambulate with PT (75% WB c FWW) Catheters: Urethral 2 Way Nolasco Assessment & Plan Impression POD#1 right hip bipolar hemiarthroplasty Problems: Plan Weightbearin% weightbearing with the right lower extremity with a front- wheeled walker DVT prophylaxis: Lovenox 30 mg subcutaneous daily 3 weeks Physical therapy for transfers, progressive ambulation, strengthening Wound care: Perioperative dressing will be changed to an island dressing tomorrow. Analgesia: Continue IV Tylenol for the first 24 hours as scheduled. Reassess at that time. Discharge plan: Discharge SNF vs home in 1-2 days. Follow-up plan: In 2 weeks at [facility] with NABOR for wound check and at [address] Dyer with x-rays VTE Prophylaxis: Sub-Q Dalteparin Resuscitation Status: CPR: Attempt Resuscitation (Dr. holguin says that they do not want any heroic measures, only attempt transient measures) Gunjan Zamarripa PA-C September 29, 2016 08:02
[2016-09-29 08:20] VITALS: BP 124/65; PULSE 95
[2016-09-29] MEDS: Senna-Docusate 8.6-50 mg Tablet PO SCH ×2 (08:23→20:39)
[2016-09-29] MEDS: Vancomycin Inj 1,000 MG in IV Premix 1 EACH IV SCH (08:47)
[2016-09-29] MEDS ORDERED: levoFLOXacin 250 mg Tablet PO SCH (10:10)
[2016-09-29] MEDS ORDERED: Ketorolac 15 mg/mL Inj IVPUSH PRN (10:20)
--- NOTE | 2016-09-29 11:06 | NUR ---
NUTRITION ASSESSMENT: ASSESS: 85YO F s/p hemiarthroplasty for R hip fx, POD 1. Texture altered diet 2/2 missing teeth/jaw osteomyelitis. Soft diet texture preferred per admit info. obtained. Inpatient diabetic screen triggered, A1c pending. PMHX: Jaw osteomyelitis, prosthetic jaw, prefers soft diet DIET: Soft. Apex thick liquids. PO 50% LABS: Alb 4.0, Glu 135, A1c pending (no h/o DM noted) MEDS: Reviewed GI: No BM WEIGHT: 54.55kg BMI: 23.5 EST.NEEDS: 25-30kcal/kg;1.0-1.2g/kg pro Kcal: [id number] Pro: 55-65g NUTRITION DIAGNOSIS: (1) Chew/swallowing difficulty related to jaw osteomyelitis/missing teeth as evidenced by pmhx reports of preferred soft diet texture. INTERVENTION: (1) Pt. may benefit from ST eval for texture recommendations. (2) Monitor A1c for potential DE Education. MONITOR/EVALUATE: PO intake, texture tolerance, lab values. F/u per moderate risk.
[2016-09-29 12:42] VITALS: BP 121/43; PULSE 79; RESP 16; O2SAT 96
--- NOTE | 2016-09-29 15:12 | NUR ---
Evaluation completed. Please go to "Notes" then click on "Assessments and Notes" (bottom left corner of screen). Then select appropriate discipline tab on top of screen.
--- NOTE | 2016-09-29 16:25 | NUR ---
Social Work: Continued D/C Planning D: EMR reviewed. Pt is a 85 y/o female admitted for right hip fracture per H&P. Pt is POD 1. Pt is not medically stable for discharge, anticipate POD 3. T/C to Bess, admissions at [facility], regarding pt's referral. Bess confirms that pt has been accepted at [facility] with Dew to follow. BARRY met with pt at bedside regarding this information, pt agreeable to discharge to [facility]. BARRY updated plan on whiteboard. A: Pt for whom a SNF has been deemed medically necessary. P: SW confirmed SNF choice with pt at bedside. Pt has been accepted at [facility] with Dew to follow. SW will continue to follow. Latia Serrano MSW
[2016-09-29] MEDS ORDERED: 0.9% Sodium Chloride 100 ML ONE (18:24)
--- NOTE | 2016-09-29 18:45 | NUR ---
Pain Patient reported 3/10 hip pain with no movement and 6/10 hip pain with movement. Scheduled IV Tylenol given. Toradol available if needed for pain. Patient denied nausea this shift. Restoril ordered for bedtime PRN for Insomnia. Q2 Turn. Call light and tray table within reach. Will continue to monitor patient hourly.
[2016-09-29 20:00] VITALS: BP 104/50; PULSE 87; RESP 20; O2SAT 95
--- NOTE | 2016-09-29 20:39 | CONS ---
[address] [address] CONSULTATION REPORT PATIENT: SHAW IBRAHIM : 1930 MR#: [id number] ADMIT: 09/27/2016 JOB ID: [id number] DATE OF SERVICE: 09/29/[address] Issa Dyer of the orthopedic service for this consult. HISTORY OF PRESENT ILLNESS: The patient is an 85-year-old woman whose past medical history is remarkable mainly for the fact she had osteomyelitis of the mandible six years ago which required eventual complete resection of the mandible and, of course, all of her lower teeth, and replacement with a metal prosthesis. Unfortunately, the metal prosthesis eroded through the skin and so the patient has a portion of the metal prosthetic mandible sticking out through the right side of her chin for which she takes penicillin VK 500 mg twice a day on an ongoing basis. This has been going on apparently for several years and she has actually been functioning quite well, though obviously she has difficulty with chewing anything solid. In any event, the patient was in her usual state of what she describes as fairly good health until September 27, when she was out walking and stumbled across a dog, not her dog, and in an attempt to right her balance, she inadvertently stepped off a curve, fell and broke her right hip. This required surgery and Dr. Dyer contacted me while I was away in [place] regarding surgical prophylaxis because the patient is allergic to CEPHALOSPORINS. I recommended at that time that she receive vancomycin in lieu of the usual cefazolin. I also recommended a MRSA screen be done of the nares. Over the weekend, it was also noted that urinalysis had no white cells and she had no symptoms of urinary tract infection, but the urinalysis did grow Klebsiella pneumoniae and she was subsequently started on levofloxacin for that. ID consultation is requested at this time regarding optimal management of her antibiotics which currently consist of the vancomycin which has been scheduled for three days as well as the levofloxacin. The patient tells me that prior to her trip and fall and breaking her hip two days ago, she had no fevers, chills, or sweats. She stated she was not having any cough, any abdominal complaint or any urinary symptom whatsoever and specifically denied urgency, frequency or dysuria. She said she was surprised to learn after she was admitted that she had a urinary tract infection. PAST MEDICAL HISTORY: 1. 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 2. History of CEPHALOSPORIN allergies. 3. Recent hip fracture with pinning. SOCIAL HISTORY: The patient is a cigarette smoker and smokes four a day. She says this is part of her exercise program as she has to walk a long ways from her apartment to get outside to smoke a cigarette and so she gets four walks a day to smoke four cigarettes. She does not drink alcohol. Never abused any drugs. Also note that she is a , her having two years ago, and she lives locally with two daughters who are involved in her care. FAMILY HISTORY: Negative for TB in any first-degree relative, but her grandmother did have TB. That said, the patient herself has been tested many times and is negative. REVIEW OF SYSTEMS: No significant headache, no visual change. She is hard of hearing. She does not have a mandible so she cannot eat or crush down on anything with her teeth. She obviously has no lower teeth or jaw. She notes that the right chin area, there is an area of metal poking through which has been exposed for quite some time. She denies stiff neck. She denies cough, shortness of breath or chest pain. No nausea, vomiting, or diarrhea, though she did have transient postop nausea. No dysuria, urgency, or frequency. She currently has a Nolasco catheter. Remainder of the review of systems negative. PHYSICAL EXAMINATION: Reveals an afebrile woman, no acute distress. Temp 36.6, pulse 79, respiratory rate 16, blood pressure 121/43. She is saturating 96% on room air and looking good. The patient is very comfortable, lying in bed. She has a device to keep her legs spread apart at the proper angle and also has a Nolasco catheter because of her hip surgery just done yesterday. She is awake and alert, very conversational though a bit hard of hearing. Eyes without conjunctivitis or scleral icterus. Nose is normal. Oral cavity is notable for a metal plate basically which is in the same position where her mandible should be. Part of the plate actually extends out through the skin and is visible for about 1 cm in the right chin. The neck is without adenopathy. Lungs are clear to auscultation and percussion. Cardiac tones: Regular rate and rhythm without notable murmur. The abdomen is soft and nontender without organomegaly. She does have a Nolasco catheter. No suprapubic tenderness. The right hip incision is dressed in a postop dressing which I did not remove. Her legs are splinted at an angle which makes them a bit difficult to examine, but she has no peripheral edema, no peripheral cellulitis, and has good perfusion of both the feet with excellent pulses. Neurologically, she can move everything, but of course, it is a little difficult to examine her lower extremities given her current situation. No skin rash noted. LABORATORIES: Include white count 10,400 postop but was 7000 when she came in. She has 13% monocytes, otherwise normal diff. Creatinine 0.71. Urinalysis without any white cells. The urine culture did grow Klebsiella pneumoniae. MRSA screen of the nares was negative. IMAGING: Includes the numerous films of course of the leg which shows expected appearance following right hip arthroplasty. The chest x-ray showed some prominent interstitial infiltrates which apparently were not seen previously. IMPRESSION: This patient seems to be doing quite well following her femoral neck fracture surgery. She states she is really feeling quite manohar that she did not injure anything other than breaking her hip and she is looking forward to being discharged soon. She has absolutely no signs or symptoms of infection and has been completely afebrile and benign-appearing throughout her hospital stay, by report. She has received vancomycin prophylaxis and I see that she is written for a couple more doses of vancomycin. I am not familiar with a need to give additional daily doses of vancomycin, but if this is the orthopedic surgeon's preference, I have no argument with it. The levofloxacin for the asymptomatic bacteriuria is, however, not indicated, and there are multiple studies and guidelines which suggest that the treatment of asymptomatic bacteriuria in the setting of hip pinning or even replacement is unnecessary and likely leads to more Clostridium difficile than it prevents infections. One large study suggested that many thousands of patients with asymptomatic bacteriuria would have to be treated with antibiotics to prevent a single infection. RECOMMENDATIONS: 1. Vancomycin is a reasonable preop and could be continued for another dose or two at the discretion of the surgeon. 2. I would discontinue the levofloxacin as she does not have a urinary tract infection but rather asymptomatic bacteriuria. 3. ID will go ahead and sign off, but thank you very much for involving me in this case.
--- NOTE | 2016-09-29 23:00 | PCM.PNMED ---
Subjective Date of Service September 29, 2016 Subjective The patient is seen and examined. She keeps asking about her nighttime triazolam that she has not been given his medication so far. Interestingly she is not interested in taking any pain medication for her hip pain, states that her tolerance for pain is pretty high. We discussed the risks and benefits of taking narcotic pain medication which included but not limited to being able to participate in physical therapy. And patient declined. She has no other concerns. Exam Vital Signs Vital Sign - Last Date Time Temp Pulse Resp B/P Pulse Ox O2 Delivery O2 Flow Rate FiO2 09/29/16 08:20 95 124/65 09/29/16 05:51 36.9 20 93 Room Air Intake and Output 09/28/16 09/28/16 09/29/16 Cumulative From/Thru 15:00 23:00 07:00 09/27/16 14:35 - 09/29/16 06:39 Intake Total 925 ml 482 ml 300 ml 2157 ml Output Total 680 ml 100 ml 500 ml 1880 ml Balance 245 ml 382 ml -200 ml 277 ml Intake Oral 354 ml 300 ml 1104 ml IV Total 925 ml 128 ml 1053 ml Output Urine Total 630 ml 100 ml 500 ml 1830 ml Estimated Blood Loss 50 ml 50 ml # Bowel Movements 0 Exam Gen.: No acute distress laying in bed talking to her sister HEENT: Asymmetric face due to job prosthesis on the right side of face Heart: Regular rate and rhythm no S3-S4 sounds Lungs: Clear to auscultation no crackles or wheezes Abdomen nontender non-distended Extremities: Warm to touch, no swelling Neuro: No focal deficits Psych: Negative for anxiety IVs and Medications IV Fluids Plan Medications Reviewed: Medications were reviewed in detail Lab and Diagnostics Result Diagram: 09/29/1651909/29/16519 Assessment & Plan 85-year-old female with 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 Patient experienced a mechanical fall today developed right hip pain, was diagnosed with right femoral neck fracture. Asymptomatic Bacteruria -- Patient grew Klebsiella and urine culture this a.m. -- ID has discontinued Po levaquin as they felt there is no need to treat asymptomatic bacteriuria. Right femoral neck fracture - Orthopedic surgeons following: Patient is status post right hip replacement/ arthroplasty - DVT prophylaxis with enoxaparin --Pain control with IV ketorolac 50 mg every 6 hours when necessary and IV Tylenol every 8 hours when necessary. She declined narcotic pain medications -- Continue PT OT -- Ortho:"Weightbearin% weightbearing with the right lower extremity with a front-wheeled walker DVT prophylaxis: Lovenox 30 mg subcutaneous daily 3 weeks Physical therapy for transfers, progressive ambulation, strengthening Wound care: Perioperative dressing will be changed to an island dressing tomorrow. Analgesia: Continue IV Tylenol for the first 24 hours as scheduled. Reassess at that time. Discharge plan: Discharge SNF vs home in 1-2 days. -- She is to receive a total of 3 days of vancomycin. Tomorrow will be date 3 History of jaw osteomyelitis, status post artificial chin/jaw placement - Stable - On oral penicillin. Patient takes penicillin twice a day 500 mg, increase his dose to 3 times a day as needed. Daughter. De La Cruz is contacted over the phone and she confirms this dose - a.m. doses held due to pre-operative antibiotics vancomycin -- Surgical PA held penicillin as she will be getting vancomycin for 2 more days --will restart home regimen after day 3 of vanc Tachycardia of unknown origin, chronic : -- Patient states that propranolol was given to her due to some heart rate issues in the remote past. -- Patient is given beta wilber prior to surgery GERD, chronic -- Continue home meds Mild hyponatremia -- Resolved Code status: Daughter. De La Cruz states that, they do not want any heroic measures. They would want something done only transiently if it is minor. But otherwise they do not want intubations outside of the OR. They do not want cardiac resuscitation. Disposition: discharge in 1-3 days after patient improves. ] Pain Evaluation: Adequate Pain Control GI Prophylaxis: Not indicated VTE Prophylaxis: Sub-Q Dalteparin VTE Mechanical Devices: Intermittant Pneumatic CD Resuscitation Status: CPR: Attempt Resuscitation (Dr. holguin says that they do not want any heroic measures, only attempt transient measures) Time spent 25 min Acacia Andres DO September 29, 2016 11:15
[2016-09-30 00:25] VITALS: BP 129/69; PULSE 92; RESP 18; O2SAT 95
[2016-09-30] MEDS: Sodium Chloride LOK Flush 10 mL Syringe IV SCH ×3 (00:30→17:28)
--- NOTE | 2016-09-30 00:37 | NUR ---
Pain Pt reported pain 3/10 while at rest and 6/10 with movement. Pt refused pain medications at this time. Denies SOB, chest pain or discomfort, n/v. Q 2 turns. Hourly rounding in place. Call light within reach, using appropriately. Pleasant and cooperative with care.
[2016-09-30 05:40] VITALS: BP 132/58; PULSE 102; RESP 22; O2SAT 93
[2016-09-30] MEDS: Pantoprazole 20 mg ER24 Tablet PO SCH (05:44)
--- NOTE | 2016-09-30 06:12 | NUR ---
Nolasco Nolasco removed intact at 0600. Call light within reach. Will continue to monitor urine output.
[2016-09-30 06:58] LABS: Mean Corpuscular Hemoglobin 29.7 pg (27.0-35.0); Mean Corpuscular Volume 92.5 fL (81-100)
[2016-09-30] MEDS: Senna-Docusate 8.6-50 mg Tablet PO SCH ×2 (08:27→22:09)
[2016-09-30] MEDS: Vancomycin Inj 1,000 MG in IV Premix 1 EACH IV SCH (08:29)
--- NOTE | 2016-09-30 10:26 | PCM.PNORTH ---
Subjective Date of Service: September 30, 2016 Visit Information: Reason for Visit Right Hip Fracture Surgery/Surgery Date right hip bipolar hemiarthroplasty 09/28/2016 Post-Op Day # 2 Date of Admission: September 27, 2016 at 17:21 Hospital Day # Subjective Patient is seen in bed. She complains of minimal pain. She does want to take narcotics. The IV trial has been working well. Nursing recommends converting to oral Tylenol at this time. Nolasco was discontinued this morning. Patient has been using a bedpan but states that she feels she can use a bedside commode. Current discharge plan is for transfer to [facility]. Patient ambulates 6 feet with therapy. Postop General: No Shortness of Breath, No Chest Pain Pain Management: PO, IV Push, Good Pain Control Objective Exam Objective Patient is seen lying in bed. Vital Signs and I/O Vital Sign - Last Date Time Temp Pulse Resp B/P Pulse Ox O2 Delivery O2 Flow Rate FiO2 09/30/16 05:40 37.4 102 22 132/58 93 Room Air Intake and Output 09/29/16 09/29/16 09/30/16 Cumulative From/Thru 15:00 23:00 07:00 09/27/16 14:35 - 09/29/16 19:20 Intake Total 330 ml 1751 ml 4238 ml Output Total 600 ml 2480 ml Balance 330 ml 1151 ml 1758 ml Intake Oral 1622 ml 2726 ml IV Total 330 ml 129 ml 1512 ml Output Urine Total 600 ml 2430 ml Estimated Blood Loss 50 ml # Bowel Movements 0 0 Lab & Micro Results Laboratory Tests Test 09/30/16 06:30 White Blood Count 10.6th/mm3 (3.8-10.1) Red Blood Count 2.79mil/mm3 (3.90-5.20) Hemoglobin 8.3g/dL (12.0-15.6) Hematocrit 25.8% (35.0-46.0) Mean Corpuscular Volume 92.5fL (81-100) Mean Corpuscular Hemoglobin 29.7pg (27.0-35.0) Mean Corpuscular Hemoglobin Concent 32.2% (32.0-37.0) Red Cell Distribution Width 14.8% (12.3-15.4) Platelet Count 187bil/L (150-400) Sodium Level 135mEq/L (134-144) Potassium Level 4.0mEq/L (3.5-5.2) Chloride Level 98mEq/L (97-108) Carbon Dioxide Level 26mmol/L (18-29) Blood Urea Nitrogen 8mg/dL (8-27) Creatinine 0.69mg/dL (0.57-1.00) Estimat Glomerular Filtration Rate 116mL/min (>59) Glucose Level 176mg/dL (60-99) Calcium Level 8.8mg/dL (8.5-10.1) Microbiology 09/27/16 MRSA (PCR) - Final, Complete 09/27/16 Urine Culture - Final, Complete Klebsiella Pneumoniae Result Diagram: 09/30/1662909/30/16629 General Appearance: Alert, Oriented X3, Cooperative, No Acute Distress Extremities: Distal Pulses Palpable, No Compartment Syndrom Noted, Thigh & Calf Soft/Nontender Postop Sensory Motor: Distal Motor Intact, Distal Sensation Intact, NVI Distally SURGICAL WOUND : Wound Location/Description Right hip: Surgical dressing is removed. Wound is cleansed with hydrogen peroxide. There is minimal serous drainage present. There is moderate ecchymosis and swelling of the thigh, as expected. The wound is dressed with Island dressings. Abduction pillow is in place. Activity: Ambulate with PT (75% WB c FWW) Catheters: None Assessment & Plan Impression POD #2 status post right hip bipolar hemiarthroplasty Problems: Plan Weightbearin% weightbearing right lower extremity with a front-wheeled walker DVT prophylaxis: Lovenox 30 mg subcutaneous daily 3 weeks (stop 10/22/2016), then start EC aspirin 325 mg BID x 3 more weeks Physical therapy for transfers, progressive ambulation, strengthening Wound care: NABOR changed dressing to an island dressing today Apply knee high ZENON hose x 4 weeks Analgesia: convert to oral Tylenol. Patient declines narcotics Discharge plan: Discharge SNF [facility] vs home when medically stable. Pain Management: Tylenol IV VTE Prophylaxis: Sub-Q Enoxaparin, SCDs Resuscitation Status: CPR: Attempt Resuscitation (Dr. holguin says that they do not want any heroic measures, only attempt transient measures) Tami Horn PA-C September 30, 2016 10:26
[2016-09-30 13:57] VITALS: BP 108/46; PULSE 78; RESP 19; O2SAT 97
--- NOTE | 2016-09-30 15:35 | NUR ---
Social Work: Readiness for Discharge D: EMR reviewed. Pt is a 85 y/o female admitted for right hip fracture per H&P. Pt is POD 1. Pt is not medically stable for discharge, anticipate 1-2 more days. SW met with pt at bedside regarding discharge plan. Pt agreeable to discharge to [facility]. T/C to Tami, pts daughter, regarding pt's discharge. Tami is updated and agreeable to plan. Tami will update Keely regarding pt's discharge plan. Pt to discharge to [facility] with Dew to follow. All updated and agreeable to plan. Paperwork and PASRR are in chart. SW will continue to follow. A: Pt for whom a SNF has been deemed medically necessary. P: Pt to discharge to [facility] with Dew to follow. Pt will require insurance authorization prior to discharge. All updated and agreeable to plan. Paperwork and PASRR are in chart. SW will continue to follow. XIOMY Latham
--- NOTE | 2016-09-30 16:28 | NUR ---
Activity/pain Pt up to chair with PT, sat in chair for several hour while visitors were in the room. Pt voiding via BSC, knee high ZENON hose placed this afternoon. Pain well controlled with IV Toradol and PO Tylenol.
--- NOTE | 2016-09-30 16:50 | PCM.PNMED ---
Subjective Date of Service September 30, 2016 Subjective Patient states that she is making progress with physical therapy. She understands that she may be discharged tomorrow. She has no concerns. She had no coronary fevers or chills Exam Vital Signs Vital Sign - Last Date Time Temp Pulse Resp B/P Pulse Ox O2 Delivery O2 Flow Rate FiO2 09/30/16 00:25 37.2 92 18 129/69 95 Room Air Intake and Output 09/29/16 09/29/16 09/30/16 Cumulative From/Thru 15:00 23:00 07:00 09/27/16 14:35 - 09/29/16 19:20 Intake Total 330 ml 1751 ml 4238 ml Output Total 600 ml 2480 ml Balance 330 ml 1151 ml 1758 ml Intake Oral 1622 ml 2726 ml IV Total 330 ml 129 ml 1512 ml Output Urine Total 600 ml 2430 ml Estimated Blood Loss 50 ml # Bowel Movements 0 0 Exam Gen.: No acute distress laying in bed talking to her sister HEENT: Asymmetric face due to job prosthesis on the right side of face Heart: Regular rate and rhythm no S3-S4 sounds Lungs: Clear to auscultation no crackles or wheezes Abdomen nontender non-distended Extremities: Warm to touch, no swelling Neuro: No focal deficits Psych: Negative for anxiety IVs and Medications IV Fluids None Medications Reviewed: Medications were reviewed in detail Lab and Diagnostics Result Diagram: 09/29/1651909/29/16519 Assessment & Plan 85-year-old female with 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 Patient experienced a mechanical fall today developed right hip pain, was diagnosed with right femoral neck fracture. Asymptomatic Bacteruria -- Patient grew Klebsiella and urine culture this a.m. -- ID has discontinued Po levaquin as they felt there is no need to treat asymptomatic bacteriuria. -- She says she has no symptoms currently. Will continue to monitor Right femoral neck fracture - Orthopedic surgeons following: Patient is status post right hip replacement/ arthroplasty - DVT prophylaxis with enoxaparin --Pain control with IV ketorolac 50 mg every 6 hours when necessary and IV Tylenol every 8 hours when necessary. She declined narcotic pain medications -- Continue PT OT -- Ortho:"Weightbearin% weightbearing right lower extremity with a front- wheeled walker DVT prophylaxis: Lovenox 30 mg subcutaneous daily 3 weeks (stop 10/22/2016), then start EC aspirin 325 mg BID x 3 more weeks Physical therapy for transfers, progressive ambulation, strengthening Wound care: PA changed dressing to an island dressing today Apply knee high ZENON hose x 4 weeks Analgesia: convert to oral Tylenol. Patient declines narcotics Discharge plan: Discharge SNF [facility] vs home when medically stable." History of jaw osteomyelitis, status post artificial chin/jaw placement - Stable - On oral penicillin. Patient takes penicillin twice a day 500 mg, increase his dose to 3 times a day as needed. DaughterMj De La Cruz is contacted over the phone and she confirms this dose - a.m. doses held due to pre-operative antibiotics vancomycin -- Surgical PA held penicillin as she will be getting vancomycin for 2 more days --will restart home regimen after day 3 of vanc () Tachycardia of unknown origin, chronic : -- Patient states that propranolol was given to her due to some heart rate issues in the remote past. -- Continue home medication propranolol GERD, chronic -- Continue home meds Mild hyponatremia -- Resolved Code status: Daughter. Garrett further clarified CODE STATUS this evening over the phone: CPR is okay but they do not want intubation Disposition: discharge in 1-3 days after patient improves. ] Pain Evaluation: Adequate Pain Control GI Prophylaxis: Not indicated VTE Prophylaxis: Sub-Q Dalteparin VTE Mechanical Devices: Intermittant Pneumatic CD Resuscitation Status: CPR: Attempt Resuscitation (DO NOT INTUBATE) Time spent 25 min Acacia Andres DO September 30, 2016 06:06
[2016-09-30 19:50] VITALS: BP 111/50; PULSE 85; RESP 19; O2SAT 95
[2016-10-01] VITALS (7 sets, daily range): BP systolic 102–144; BP diastolic 52–71; PULSE 64–91; RESP 16–20; O2SAT 94–97
[2016-10-01] MEDS: Sodium Chloride LOK Flush 10 mL Syringe IV SCH ×3 (00:30→16:30)
--- NOTE | 2016-10-01 04:12 | NUR ---
Transfer/ Dressing Patient having difficult time transferring from bed to BSC. Reiterated proper form however patient having difficult time following directions. Also turned down pain medication that was offered. Attempted pain management education, but patient refused them, stating "it only hurts when I move." Dressing fully saturated reinforced with ABD pad, this also became saturated. Did full dressing change. Incision is well approximated, bruising still evident, patient agreeable to applying Ice to hip.
[2016-10-01] MEDS ORDERED: POLY17PO6 PO (05:47)
[2016-10-01] MEDS ORDERED: Senna/Docusate Sodium PO (05:47)
[2016-10-01] MEDS ORDERED: ASPI325T32 PO (05:49)
[2016-10-01] MEDS ORDERED: LOV30 SUBQ (05:51)
[2016-10-01 06:38] LABS: Mean Corpuscular Hemoglobin 29.7 pg (27.0-35.0); Mean Corpuscular Volume 92.4 fL (81-100)
[2016-10-01] MEDS: Senna-Docusate 8.6-50 mg Tablet PO SCH ×2 (09:28→21:30)
[2016-10-01] MEDS: Pantoprazole 20 mg ER24 Tablet PO SCH (09:28)
--- NOTE | 2016-10-01 09:44 | NUR ---
Evaluation completed. Please go to "Notes" then click on "Assessments and Notes" (bottom left corner of screen). Then select appropriate discipline tab on top of screen.
[2016-10-01] MEDS: Vancomycin Inj 1,000 MG in IV Premix 1 EACH IV SCH (10:28)
[2016-10-01] MEDS: 0.9% Sodium Chloride 250 ML IV SCH (12:59)
--- NOTE | 2016-10-01 13:45 | PCM.PNORTH ---
Subjective Date of Service: Oct 01, 2016 Visit Information: Reason for Visit Right Hip Fracture Surgery/Surgery Date Post-Op Day # 3 Date of Admission: September 27, 2016 at 17:21 Hospital Day # Subjective Patient states she is not having any pain unless she moves her hip. She states she is planning to go to [facility] today but states "the doctors were going to give me an infusion this morning" and she is worried that will delay her transfer. Postop General: No Shortness of Breath, No Chest Pain Pain Management: PO, IV Push, Good Pain Control Objective Exam Objective Laying in bed Vital Signs and I/O Vital Sign - Last Date Time Temp Pulse Resp B/P Pulse Ox O2 Delivery O2 Flow Rate FiO2 10/01/16 13:21 Room Air 10/01/16 13:08 97 10/01/16 12:50 36.5 64 20 115/60 Intake and Output 09/30/16 09/30/16 10/01/16 Cumulative From/Thru 15:00 23:00 07:00 09/27/16 14:35 - 10/01/16 05:00 Intake Total 400 ml 383 ml 1200 ml 6221 ml Output Total 1250 ml 250 ml 800 ml 4780 ml Balance -850 ml 133 ml 400 ml 1441 ml Intake Oral 400 ml 383 ml 1200 ml 4709 ml IV Total 1512 ml Output Urine Total 1250 ml 250 ml 800 ml 4730 ml Estimated Blood Loss 50 ml # Bowel Movements 0 1 2 3 Lab & Micro Results Laboratory Tests Test 10/01/16 05:25 White Blood Count 11.2th/mm3 (3.8-10.1) Red Blood Count 2.63mil/mm3 (3.90-5.20) Hemoglobin 7.8g/dL (12.0-15.6) Hematocrit 24.3% (35.0-46.0) Mean Corpuscular Volume 92.4fL (81-100) Mean Corpuscular Hemoglobin 29.7pg (27.0-35.0) Mean Corpuscular Hemoglobin Concent 32.1% (32.0-37.0) Red Cell Distribution Width 14.7% (12.3-15.4) Platelet Count 192bil/L (150-400) Sodium Level 136mEq/L (134-144) Potassium Level 4.2mEq/L (3.5-5.2) Chloride Level 97mEq/L (97-108) Carbon Dioxide Level 26mmol/L (18-29) Blood Urea Nitrogen 16mg/dL (8-27) Creatinine 0.73mg/dL (0.57-1.00) Estimat Glomerular Filtration Rate 108mL/min (>59) Glucose Level 126mg/dL (60-99) Calcium Level 8.5mg/dL (8.5-10.1) Microbiology 09/27/16 MRSA (PCR) - Final, Complete 09/27/16 Urine Culture - Final, Complete Klebsiella Pneumoniae Result Diagram: 10/01/1652410/01/16524 General Appearance: Alert, Oriented X3, Cooperative, No Acute Distress Extremities: Distal Pulses Palpable, No Compartment Syndrom Noted, Thigh & Calf Soft/Nontender Postop Sensory Motor: Distal Motor Intact, Movement in Toes, Distal Sensation Intact, NVI Distally SURGICAL WOUND : Wound Location/Description Dressings c/d/i Incision General Appearance: No Direct Observation Activity: Ambulate with PT (75% WB c FWW) Catheters: None Assessment & Plan Impression POD#3 right hip bipolar hemiarthropalsty Problems: Plan Weightbearin% weightbearing right lower extremity with a front-wheeled walker DVT prophylaxis: Lovenox 30 mg subcutaneous daily 3 weeks (stop 10/22/2016), then start EC aspirin 325 mg BID x 3 more weeks Physical therapy for transfers, progressive ambulation, strengthening Wound care: Keep dressing intact; change if saturated Apply knee high ZENON hose x 4 weeks Analgesia: convert to oral Tylenol. Patient declines narcotics Discharge plan: Discharge [facility] vs home when medically stable. VTE Prophylaxis: Sub-Q Dalteparin Resuscitation Status: CPR: Attempt Resuscitation (DO NOT INTUBATE) Gunjan Zamarripa PA-C Oct 01, 2016 13:45
--- NOTE | 2016-10-01 13:45 | NUR ---
RACHAEL Signed @ 904AM
--- NOTE | 2016-10-01 15:47 | NUR ---
BLOOD TRANSFUSION/POST-OP PROGRESS H/H: 7.8/24.3. Order to transfuse 1 unit of blood was received. Patient signed blood consent form. 1 unit of blood was transfused without any issues noted. Denies itching, chest pain/nausea/SOB. IV site is intact. No swelling noted. flushed without any problems. Patient denies pain at this time. Pain medication was offered to the patient but she refused. Tolerating liquids PO and her diet. Poor appetite. Denies nausea. No emesis noted. Denies SOB. Patient was able to get OOB several times this shift to sit in the chair or use the BSC. 1 PA to the BSC. Tolerated activity fairly. Dressing is CDI. Vincenzo hose and SCD's are on. Patient has been using her call light appropriately. She does not attempt to get OOB without assistance.
[2016-10-01] MEDS ORDERED: HYDROcodone-APAP 5-325 mg Tablet PO PRN (18:00)
--- NOTE | 2016-10-01 23:05 | PCM.PNMED ---
Subjective Date of Service Oct 01, 2016 Subjective Patient is seen and examined. She states that she started taking estrogen supplementation prescribed to her by Dr. Estes very long time ago when she was thought to have calcium problems. Explained to her that because of her smoking and also recent orthopedic surgery she is at high risk for DVT and should not be on the supplementation. She expressed her understanding. She states that she is working well with PT OT, she is looking forward to rehabbing at the [facility]. Exam Vital Signs Vital Sign - Last Date Time Temp Pulse Resp B/P Pulse Ox O2 Delivery O2 Flow Rate FiO2 10/01/16 19:40 37.8 90 144/71 94 Room Air 10/01/16 15:33 16 Intake and Output 09/30/16 09/30/16 10/01/16 Cumulative From/Thru 15:00 23:00 07:00 09/27/16 14:35 - 10/01/16 05:00 Intake Total 400 ml 383 ml 1200 ml 6221 ml Output Total 1250 ml 250 ml 800 ml 4780 ml Balance -850 ml 133 ml 400 ml 1441 ml Intake Oral 400 ml 383 ml 1200 ml 4709 ml IV Total 1512 ml Output Urine Total 1250 ml 250 ml 800 ml 4730 ml Estimated Blood Loss 50 ml # Bowel Movements 0 1 2 3 IVs and Medications Medications Reviewed: Medications were reviewed in detail Lab and Diagnostics Result Diagram: 10/01/16 1708 10/01/16 0525 Assessment & Plan 85-year-old female with 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 Patient experienced a mechanical fall today developed right hip pain, was diagnosed with right femoral neck fracture. Acute blood loss anemia: Due to inherent bleeding risks involved in orthopedic surgery -- Patient was transfused with 1 unit, posttransfusion H&H appropriately came up -- We will prescribe iron supplementation Asymptomatic Bacteruria -- Patient grew Klebsiella and urine culture this a.m. -- ID has discontinued Po levaquin as they felt there is no need to treat asymptomatic bacteriuria. -- She says she has no symptoms currently. Will continue to monitor Right femoral neck fracture - Orthopedic surgeons following: Patient is status post right hip replacement/ arthroplasty - DVT prophylaxis with enoxaparin --Pain control with IV ketorolac 50 mg every 6 hours when necessary and IV Tylenol every 8 hours when necessary. She declined narcotic pain medications -- Continue PT OT -- Ortho:"Weightbearin% weightbearing right lower extremity with a front- wheeled walker DVT prophylaxis: Lovenox 30 mg subcutaneous daily 3 weeks (stop 10/22/2016), then start EC aspirin 325 mg BID x 3 more weeks Physical therapy for transfers, progressive ambulation, strengthening Wound care: PA changed dressing to an island dressing today Apply knee high ZENON hose x 4 weeks Analgesia: convert to oral Tylenol. Patient declines narcotics Discharge plan: Discharge SNF [facility] vs home when medically stable." -- Discussed with patient not taking estrogen supplementation to decrease her risk of DVT History of jaw osteomyelitis, status post artificial chin/jaw placement - Stable - On oral penicillin. Patient takes penicillin twice a day 500 mg, increase his dose to 3 times a day as needed. Daughter. De La Cruz is contacted over the phone and she confirms this dose - a.m. doses held due to pre-operative antibiotics vancomycin -- Surgical PA held penicillin as she will be getting vancomycin for 2 more days -- She will have finished vancomycin on 10/01. Will start penicillin by mouth at night. Tachycardia of unknown origin, chronic : -- Patient states that propranolol was given to her due to some heart rate issues in the remote past. -- Continue home medication propranolol GERD, chronic -- Continue home meds Mild hyponatremia -- Resolved Code status: Daughter. Garrett further clarified CODE STATUS this evening over the phone: CPR is okay but they do not want intubation Disposition: discharge in 1 day if hemoglobin remains stable ] Pain Evaluation: Adequate Pain Control GI Prophylaxis: Not indicated VTE Prophylaxis: Sub-Q Dalteparin VTE Mechanical Devices: Intermittant Pneumatic CD, Anti-Embolic stockings Resuscitation Status: CPR: Attempt Resuscitation (DO NOT INTUBATE) Time spent 20 min Acacia Andres DO Oct 01, 2016 23:05
[2016-10-02] MEDS: Sodium Chloride LOK Flush 10 mL Syringe IV SCH ×2 (00:30→08:10)
--- NOTE | 2016-10-02 03:51 | NUR ---
Pain This evening patient complains of 4/10 back pain. Denies pain in R hip. 650mg Tylenol PO given in applesauce. Shortly after, patient starts to complain of gout pain in the left foot as well. States that she takes colcrys to manage gout. MD notified and an order for one time dose, 0.6mg, of colcrys PO was written. Dose administered. Will continue to monitor and continue Q1 hour checks.
[2016-10-02 06:22] VITALS: BP 130/67; PULSE 82; RESP 20; O2SAT 93
[2016-10-02] MEDS: Pantoprazole 20 mg ER24 Tablet PO SCH (06:29)
[2016-10-02 07:54] VITALS: BP 147/77; PULSE 124; RESP 18; O2SAT 95
--- NOTE | 2016-10-02 07:58 | PCM.PNORTH ---
Subjective Date of Service: Oct 02, 2016 Visit Information: Reason for Visit Right Hip Fracture Surgery/Surgery Date Post-Op Day # Date of Admission: September 27, 2016 at 17:21 Hospital Day # Subjective Foundation awake and alert and well position in bed. No complaints of pain at this time. Patient is very hard of hearing but is otherwise very pleasant and talkative. We have discussed discharge likely to senior living facility for some period of time so that she may become safer with gait and independent mobility. Patient relates that she has been living alone and independently in the area. Patient also discusses that she does not tolerate narcotic pain medications well and I have discussed this with her at some length this morning. Postop General: No Complaints, No Shortness of Breath, No Chest Pain Pain Management: PO, Good Pain Control Objective Exam Vital Signs and I/O Vital Sign - Last Date Time Temp Pulse Resp B/P Pulse Ox O2 Delivery O2 Flow Rate FiO2 10/02/16 06:22 36.9 82 20 130/67 93 Room Air Intake and Output 10/01/16 10/01/16 10/02/16 Cumulative From/Thru 15:00 23:00 07:00 09/27/16 14:35 - 10/02/16 06:53 Intake Total 1670 ml 400 ml 8291 ml Output Total 1050 ml 1000 ml 6830 ml Balance 620 ml -600 ml 1461 ml Intake Oral 1070 ml 400 ml 6179 ml IV Total 300 ml 1812 ml Packed Cells 300 ml 300 ml Output Urine Total 1050 ml 1000 ml 6780 ml Estimated Blood Loss 50 ml # Bowel Movements 3 Lab & Micro Results Laboratory Tests Test 10/01/16 17:08 10/02/16 06:02 Hemoglobin 9.6g/dL (12.0-15.6) 9.5g/dL (12.0-15.6) Hematocrit 29.0% (35.0-46.0) 28.6% (35.0-46.0) Microbiology 09/27/16 MRSA (PCR) - Final, Complete 09/27/16 Urine Culture - Final, Complete Klebsiella Pneumoniae Result Diagram: 10/02/16 0602 10/01/16 0525 General Appearance: Alert, Oriented X3, Cooperative, No Acute Distress Extremities: No Compartment Syndrom Noted, Thigh & Calf Soft/Nontender Postop Sensory Motor: Distal Motor Intact, Movement in Toes, Distal Sensation Intact SURGICAL WOUND : Incision General Appearance: No Direct Observation Activity: Activity per PT, Ambulate with PT (75% WB c FWW) Catheters: None Assessment & Plan Impression Patient is a pleasant 85-year-old female who is alert, oriented and very hard of hearing. She was living alone in the area at baseline and hopes to return to this. She is aware that she will likely discharge to senior living facility for some period of time and she is agreeable to this. Problems: Plan Postop day #4 from right bipolar hip hemiarthroplasty, cemented, performed on by Dr. Issa Dyer. Continue 75% weightbearing at the right lower extremity using a front-wheeled walker. Continue formal physical therapy for mobility, gait and safety. Continue by mouth pain control without narcotic pain meds per patient's request secondary to intolerance. Continue Lovenox 30 mg subcutaneous daily 3 weeks with transition to ASA 325 mg EC by mouth twice a day for an additional 3 weeks totaling 6 weeks DVT prophylaxis. Postoperative dressings are clean dry and intact this morning. Dressings may be changed when necessary when loose or soiled. Bilateral SCDs in place. Nursing please measured for and fit bilateral thigh-high ZENON hose as her this morning. Follow-up in 2 weeks at [facility] orthopedic clinic with mid-level provider for staple removal and wound check. Follow-up in 6 weeks at [facility] orthopedic clinic with Dr. Issa Dyer with AP pelvis and right hip crosstable lateral x-rays on arrival. Orthopedics thanks hospital service for their help in the medical management of this patient. Orthopedics will sign off on this patient at this time but as always remain available for consultation or treatment as needed. Anticipate discharge by hospitalist service to senior living facility when patient is determined to be medically stable to do so. VTE Prophylaxis: Sub-Q Dalteparin Resuscitation Status: CPR: Attempt Resuscitation (DO NOT INTUBATE) Robi Groves PA-C Oct 02, 2016 07:58
[2016-10-02] MEDS: Senna-Docusate 8.6-50 mg Tablet PO SCH (08:03)
[2016-10-02] MEDS: 0.9% Sodium Chloride 250 ML IV SCH (09:15)
--- NOTE | 2016-10-02 10:19 | PCM.DIMED ---
Discharge Instructions Date of Service Oct 02, 2016 Dates of Hospitalization September 27, 2016 at 17:21 Discharge Diagnosis Discharge Diagnosis Right bipolar hip hemiarthroplasty, cemented, performed on 09/28/[address] Issa Dyer. Medication Instructions Additional med instructions Continue Lovenox 30 mg subcutaneous daily 3 weeks with transition to ASA 325 mg EC by mouth twice a day for an additional 3 weeks totaling 6 weeks DVT prophylaxis. Please hold daily aspirin when patient is on BID aspirin and then resume once three weeks of ASA BID is completed. Diet Discharge Diet: Other (mechanical soft diet) Call your provider Call your provider for: Fever or Chills, Shortness of breath, Bleeding, Chest pain, Vomitting, Excessive diarrhea, Weakness (unilateral) Patient Instructions Patient Instructions Patient de jesus snot have a lucio. Patient has no communicable diseases. Generics may be substituted for medications. Pills may not be crushed. Patient needs PT/OT : Bed Mobility Ability * Minimum Assistance Transfer Sit to Stand Ability * Moderate Assistance * Minimum Assistance Transfer Ability * Minimum Assistance * Contact Guard Assistive Devices * Front Wheeled Walker Transfer/Bed Mobility Comment * Up to bsc and rtb. Continue 75% weightbearing at the right lower extremity using a front-wheeled walker. Continue formal physical therapy for mobility, gait and safety. Continue by mouth pain control without narcotic pain meds per patient's request secondary to intolerance. Continue Lovenox 30 mg subcutaneous daily 3 weeks with transition to ASA 325 mg EC by mouth twice a day for an additional 3 weeks totaling 6 weeks DVT prophylaxis. Postoperative dressings are clean dry and intact this morning. Dressings may be changed when necessary when loose or soiled. Patent is on dysphagia mechanical soft diet Patient needs penicillin prophylaxis for her jaw prosthesis Follow-up plan Follow-up in 2 weeks at [facility] orthopedic clinic with mid-level provider for staple removal and wound check. Follow-up in 6 weeks at [facility] orthopedic clinic with Dr. Issa Dyer with AP pelvis and right hip crosstable lateral x-rays on arrival. Patient will see attending at the [facility] upon arrival. Acacia Andres DO Oct 02, 2016 10:18
--- NOTE | 2016-10-02 10:25 | NUR ---
[facility] for Moraima at [place], re nevin for [facility].
[2016-10-02] MEDS ORDERED: TRAM50TA2 PO (11:35)
[2016-10-02] MEDS ORDERED: HYDR-3090 PO (11:36)
[2016-10-02] MEDS ORDERED: FERR-83 PO (11:38)
[2016-10-02 12:27] VITALS: BP 138/74; PULSE 93; RESP 18; O2SAT 95
[2016-10-02 12:30] VITALS: BP 131/65; PULSE 83; RESP 18; O2SAT 97
--- NOTE | 2016-10-02 14:52 | NUR ---
Social Work: Discharge D: EMR reviewed. Pt is on day 5 of hospitalization. Pt to discharge to [facility] with Dew to follow. SW updated pt and family with discharge plan and transport time. Pt will transport today at 1500 per Bess at [facility]. Pt and family agreeable to discharge plan and transport time. SW faxed transfer packet to SNF and placed transfer packet at nurses station. SW updated MD and RN on transfer time. SW will continue to follow. A: Pt for whom a SNF has been deemed medically necessary. P: Pt to discharge to [facility] with Dew to follow at 1500 today. Pt's insurance has authorized stay. Family, pt, and RN updated on transfer time and agreeable to plan. Transfer packet faxed and placed at nurses station. SW will continue to follow. XIOMY Esposito
--- NOTE | 2016-10-02 15:15 | NUR ---
Discharge Pt. discharged to [facility] [place] and report over telephone was given to RN at [facility] at ~ 1350. Pts. transport came and picked up Pt. from room 1016 OSC and Pt. took all her belongings with her. Pt. IV DC'D x1 intact and asymptomatic. Informational packet was given to transporter to give to [facility].
--- NOTE | 2016-10-02 23:33 | PCM.DC.MED ---
Discharge Summary Date of Service Oct 02, 2016 Dates of Hospitalization Date of Hospital Admission September 27, 2016 at 17:21 Date of Discharge: Oct 02, 2016 Providers: Admitting Physician: Hieu Griffiths MD Primary Care Physician: Angel Estes MD Attending Physician: Hieu Griffiths MD Diagnosis at Time of Discharge Diagnosis at Time of Discharge Right bipolar hip hemiarthroplasty, cemented, performed on 09/28/[address] Issa Dyer. Consultations Orthopedic Surgery Procedures XRay, CTs & MRIs PROCEDURE: X-RAY RIGHT FEMUR, TWO VIEWS ([id number]) INDICATIONS: femur fx.-requested by Manisha IMPRESSION: Right femoral neck fracture. Osteopenia. Dictated by: Bryce Bautista M.D. on 09/27/2016 at 16:44 Approved by: Bryce Bautista M.D. on 09/27/2016 at 16:49 Invasive Procedures Right bipolar hip arthroplasty on 09/28/[address] Dyer Brief History Patient with past medical history of osteomyelitis of the jaw, has prostatic jaw and some chronic penicillin therapy is complaining of right hip pain, 5/10, sharp, exacerbated by palpation movements, partially alleviated by pain medications and rest, associated with generalized weakness. Patient experienced it mechanical fall which led to right hip pain. Patient was diagnosed with right femoral neck fracture. The orthopedic surgeons were contacted and planning surgery tomorrow. Otherwise patient is doing well. 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 Patient experienced a mechanical fall today developed right hip pain, was diagnosed with right femoral neck fracture. Acute blood loss anemia: Due to inherent bleeding risks involved in orthopedic surgery -- Patient was transfused with 1 unit, posttransfusion H&H appropriately came up -- Ferrous sulfate 325 mg twice a day for discharge -- We will [facility] Follow-up with H&H in 1 week Right femoral neck fracture - Orthopedic surgeons following: Patient is status post right hip replacement/ arthroplasty - DVT prophylaxis with enoxaparin --Pain control with IV ketorolac 50 mg every 6 hours when necessary and IV Tylenol every 8 hours when necessary. She declined narcotic pain medications -- Continue PT OT -- Ortho:"Weightbearin% weightbearing right lower extremity with a front- wheeled walker DVT prophylaxis: Lovenox 30 mg subcutaneous daily 3 weeks (stop 10/22/2016), then start EC aspirin 325 mg BID x 3 more weeks Physical therapy for transfers, progressive ambulation, strengthening Wound care: PA changed dressing to an island dressing today Apply knee high ZENON hose x 4 weeks Analgesia: convert to oral Tylenol. Patient declines narcotics Discharge plan: Discharge SNF [facility] vs home when medically stable." -- Discussed with patient not taking estrogen supplementation to decrease her risk of DVT -- The day of discharge patient is feeling well, working with PT OT, not needing much narcotics ( she declined narcotics for much of her stay even after her hip repair. She did tolerate hydrocodone during this admission in spite of her above-stated allergy to codeine, as we give her a prescription for a few tablets of this.). Tramadol is the other option we provided at discharge History of jaw osteomyelitis, status post artificial chin/jaw placement - Stable - On oral penicillin. Patient takes penicillin twice a day 500 mg, increase his dose to 3 times a day as needed. Daughter. De La Cruz is contacted over the phone and she confirms this dose - a.m. doses held due to pre-operative antibiotics vancomycin -- Surgical PA held penicillin as she will be getting vancomycin for 2 more days -- She will have finished vancomycin on 10/01. Penicillin was restarted on 10/01 PM -- Continue this medication at discharge Tachycardia of unknown origin, chronic : -- Patient states that propranolol was given to her due to some heart rate issues in the remote past. -- Continue home medication propranolol -- Stable Asymptomatic Bacteruria -- Patient grew Klebsiella and urine culture this a.m. -- ID has discontinued Po levaquin as they felt there is no need to treat asymptomatic bacteriuria. GERD, chronic -- Continue home meds Mild hyponatremia -- Resolved Code status: Daughter. Garrett further clarified CODE STATUS this evening over the phone: CPR is okay but they do not want intubation ] Exam Vital Signs (Last) Date Time Temp Pulse Resp B/P Pulse Ox O2 Delivery O2 Flow Rate FiO2 10/02/16 07:54 36.8 124 18 147/77 95 Room Air Exam Gen.: No acute distress HEENT: Asymmetric face due to job prosthesis on the right side of face Heart: Regular rate and rhythm no S3-S4 sounds Lungs: Clear to auscultation no crackles or wheezes Abdomen nontender non-distended Extremities: Warm to touch, no swelling Neuro: No focal deficits Psych: Negative for anxiety Test 09/27/16 15:14 09/27/16 16:43 09/29/16 05:20 09/30/16 06:30 Hold Purple Top Tube Received (Received) Prothrombin Time 9.9sec (8.1-12.5) Prothromb Time International Ratio 0.93ratio Activated Partial Thromboplast Time 26.8sec (22.8-33.0) Hold Blue Top Tube Received (Received) Total Bilirubin 0.3mg/dL (0.0-1.2) Aspartate Amino Transf (AST/SGOT) 24U/L (0-50) Alanine Aminotransferase (ALT/SGPT) 12U/L (0-32) Alkaline Phosphatase 49U/L (25-165) Total Protein 7.6g/dL (6.4-8.4) Albumin 4.0g/dL (3.4-5.0) Hold [place] Top Tube Received (Received) Urine Color Yellow (YELLOW) Urine Appearance Hazy (CLEAR,HAZY) Urine pH 6.0 (5.0-8.0) Urine Specific [place] 1.020 (1.003-1.035) Urine Protein Tracemg/dL (NEG,TRACE) Urine Glucose (UA) Negativemg/dL (NEGATIVE) Urine Ketones Negativemg/dL (NEGATIVE) Urine Occult Blood Negative (NEGATIVE) Urine Nitrite Negative (NEGATIVE) Urine Bilirubin Negative (NEGATIVE) Urine Urobilinogen Normalmg/dL (NORMAL) Urine Leukocyte Esterase Trace (NEGATIVE) Urine RBC 0-2/hpf (0-2) Urine WBC 0-5/hpf (0-5) Urine Epithelial Cells None/hpf (NONE-MOD) Urine Crystals None seen (NONE SEEN) Urine Bacteria Few/hpf (NONE-FEW) Urine Hyaline Casts None/lpf (NONE) Urine Granular Casts None seen (NONE SEEN) Urine Waxy Casts None seen (NONE SEEN) Urine Red Blood Cell Casts None seen (NONE SEEN) Urine White Blood Cell Casts None seen (NONE SEEN) Urine Mucus None seen (None Seen) Urine Trichomonas None seen (NONE SEEN) Urine Yeast None (NONE SEEN) Urinalysis Comment None Urine Culture Reflexed Indicated Neutrophils (%) (Auto) 70.8% (40-74) Lymphocytes (%) (Auto) 15.5% (14-46) Monocytes (%) (Auto) 13.0% (4-12) Eosinophils (%) (Auto) 0.4% (0-5) Basophils (%) (Auto) 0.1% (0-3) Hemoglobin A1c 6.3% (4.8-5.6) Test 10/01/16 05:25 10/02/16 06:02 White Blood Count 11.2th/mm3 (3.8-10.1) Red Blood Count 2.63mil/mm3 (3.90-5.20) Mean Corpuscular Volume 92.4fL (81-100) Mean Corpuscular Hemoglobin 29.7pg (27.0-35.0) Mean Corpuscular Hemoglobin Concent 32.1% (32.0-37.0) Red Cell Distribution Width 14.7% (12.3-15.4) Platelet Count 192bil/L (150-400) Sodium Level 136mEq/L (134-144) Potassium Level 4.2mEq/L (3.5-5.2) Chloride Level 97mEq/L (97-108) Carbon Dioxide Level 26mmol/L (18-29) Blood Urea Nitrogen 16mg/dL (8-27) Creatinine 0.73mg/dL (0.57-1.00) Estimat Glomerular Filtration Rate 108mL/min (>59) Glucose Level 126mg/dL (60-99) Calcium Level 8.5mg/dL (8.5-10.1) Hemoglobin 9.5g/dL (12.0-15.6) Hematocrit 28.6% (35.0-46.0) Discharge Medications Discharge Medications ([Senna/Docusate Sodium]) 1 TABLET TABLET 1 TABLET PO BID Prescribed by: ACACIA HITCHCOCK DO Aspirin (Aspirin) 325 Mg Tablet 325 MG PO BID Prescribed by: ACACIA HITCHCOCK DO Calcium Carbonate (Calcium) 600 Mg Tablet 600 MG PO DAILY (Reported) Cholecalciferol (Vitamin D3) (Vitamin D3) 1,000 Unit Tab.chew 1,000 UNIT PO DAILY (Reported) Clotrimazole (Clotrimazole) 10 Mg Donna 10 MG BUCCAL TID (Reported) Cyanocobalamin (Vitamin B12) 500 Mcg Tablet 1,000 MCG PO DAILY (Reported) Enoxaparin (Lovenox) 30 Mg/0.3 Ml Syringe 30 MG SUBQ DAILY Prescribed by: ACACIA HITCHCOCK DO Ferrous Sulfate (Ferrous Sulfate) 325 Mg Tablet 325 MG PO BID Prescribed by: ACACAI HITCHCOCK DO Furosemide (Furosemide) 20 Mg Tab 20 MG PO QAM (Reported) Lactobacillus Acidophilus (Acidophilus Lactobacillus) 1 Each Capsule 1 CAPSULE PO BID (Reported) Niacinamide (Niacin) 500 Mg Tablet 500 MG PO TIDWM (Reported) Omeprazole Magnesium (Prilosec Otc) 20 Mg Tablet.dr 20 MG PO QAM (Reported) Penicillin V Potassium (Penicillin V Potassium) 500 Mg Tablet 500 MG PO BID ( Reported) Propranolol HCl (Propranolol HCl) 40 Mg Tablet 20 MG PO BID (Reported) As needed Colchicine (Colcrys) 0.6 Mg Tablet 0.6 MG PO PRN For Pain (Reported) Hydrocodone-Acetaminophen 5-300 mg (Hydrocodone-Acetaminophen 5-300 mg) 1 Each Tablet 1 TABLET PO Q4H PRN PRN For Pain Prescribed by: ACACIA HITCHCOCK DO Polyethylene Glycol 3350 (Miralax) 17 Gm Powd.pack 17 GM PO DAILY PRN PRN For Constipation Prescribed by: ACACIA HITCHCOCK DO Tramadol (Tramadol) 50 Mg Tablet 50 MG PO Q6H PRN PRN For Pain Prescribed by: ACACIA HITCHCOCK DO Triazolam (Triazolam) 0.125 Mg Tablet 0.125 MG PO HS PRN PRN Insomnia (Reported ) Additional med instructions Continue Lovenox 30 mg subcutaneous daily 3 weeks with transition to ASA 325 mg EC by mouth twice a day for an additional 3 weeks totaling 6 weeks DVT prophylaxis. Please hold daily aspirin when patient is on BID aspirin and then resume once three weeks of ASA BID is completed. Followup Plan Follow-up plan Follow-up in 2 weeks at [facility] orthopedic clinic with mid-level provider for staple removal and wound check. Follow-up in 6 weeks at [facility] orthopedic clinic with Dr. Issa Dyer with AP pelvis and right hip crosstable lateral x-rays on arrival. Patient will see attending at the [facility] upon arrival. We request that PCP obtains a f/u H&H in one week. Discharge Diet: Other (mechanical soft diet) Patient Instructions Patient de jesus snot have a lucio. Patient has no communicable diseases. Generics may be substituted for medications. Pills may not be crushed. Patient needs PT/OT : Bed Mobility Ability * Minimum Assistance Transfer Sit to Stand Ability * Moderate Assistance * Minimum Assistance Transfer Ability * Minimum Assistance * Contact Guard Assistive Devices * Front Wheeled Walker Transfer/Bed Mobility Comment * Up to bsc and rtb. Continue 75% weightbearing at the right lower extremity using a front-wheeled walker. Continue formal physical therapy for mobility, gait and safety. Continue by mouth pain control without narcotic pain meds per patient's request secondary to intolerance. Continue Lovenox 30 mg subcutaneous daily 3 weeks with transition to ASA 325 mg EC by mouth twice a day for an additional 3 weeks totaling 6 weeks DVT prophylaxis. Postoperative dressings are clean dry and intact this morning. Dressings may be changed when necessary when loose or soiled. Patent is on dysphagia mechanical soft diet Patient needs penicillin prophylaxis for her jaw prosthesis Time spent 40 min Acacia Hitchcock DO Oct 02, 2016 11:39
== END 2016-10-02 15:15 | DRG 470 ==
LOC: SED 14:35 → OSC 17:21
PROVIDERS: ADMIT Internal Medicine; ATTEND Internal Medicine
PROC: 0SRR0J9 Replacement of Right Hip Joint, Femoral Surface with Synthetic Substitute, Cemented, Open Approach (ICD-10-PCS; principal; 2016-09-28 09:00)
PROC: 30233N1 Transfusion of Nonautologous Red Blood Cells into Peripheral Vein, Percutaneous Approach (ICD-10-PCS; 2016-10-01)
DX: S72.011A Unspecified intracapsular fracture of right femur, initial encounter for closed fracture (principal); D62 Acute posthemorrhagic anemia; M86.68 Other chronic osteomyelitis, other site; W18.30XA Fall on same level, unspecified, initial encounter; F17.210 Nicotine dependence, cigarettes, uncomplicated; M81.0 Age-related osteoporosis without current pathological fracture; R00.0 Tachycardia, unspecified; K21.9 Gastro-esophageal reflux disease without esophagitis; R82.71 Bacteriuria

== ENCOUNTER 2016-10-14 16:37 | Inpatient (IN) | payer MEDICARE ==
[~2016-10-14] VITALS: Ht 152.4 cm; Wt 56.3 kg
--- NOTE | 2016-10-14 15:30 | NUR ---
Admit Pt admitted to [facility] room 1001 at 1530. Pt A&OX3. CONDE. Ambulating to the bathroom SBA FWW. Steady gait. Rates pain 5/10 in right hip and states that pain is at a tolerable level. Dressing on right hip is C/D/I. Family and MD at bedside. Admit in RN to do admission. Pt and family oriented to the room.
[~2016-10-14 16:37] MED LIST: ASPI325T32 PO; CALC600T12 PO; CHOL10008 PO; CLOT10TR BUCCAL; COLC0.6T52 PO; CYAN500 PO; FERR-83 PO; FUR20 PO; HYDR-3090 PO; LACT1CAP44 PO; LOV30 SUBQ; NIAC500T21 PO; OMEP20TA24 PO; PENI500T PO; POLY17PO6 PO; PROP40TA5 PO; Senna/Docusate Sodium PO; TRAM50TA2 PO; TRIA0.1220 PO
--- NOTE | 2016-10-14 16:57 | PCM.HPMED ---
Subjective Date of Service Oct 14, 2016 Primary Provider: Admitting Physician: Aman Arguello MD Primary Care Physician: Angel Estes MD Attending Physician: Aman Arguello MD Chief Complaint: Rt hip pain History of Present Illness: 86yo F w/ hx of osteomyelitis of the jaw, has prostatic jaw on chronic abx, recent Rt hip hemiarthroplasty on 09/28, [facility] due to concern for surgical site infection. pt was sent from [facility] due to discharge on the dressing site. As per pt, it started to become pulurent for 2days, didn't particularly notice more pain, pt denied fever, chills. pt had good appetite, ambulating with 75% wt bearing, denied n/v/c/d. pt was noted to have wbc12.2 a week ago. Swab was sent from [facility], so far no pertinent result per ortho clinic. 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 upon arrival to [facility], pt looked comfortable, denied any other complaints, Review of Systems: Pertinent positives as noted in history of present illness. All other systems were reviewed and are negative Allergies Coded Allergies: Cephalosporins (Verified Allergy, Severe, tongue swelling, itching, ) hydromorphone (Verified Allergy, Severe, itchy all over body, 10/14/16) codeine (Verified Allergy, Intermediate, vomiting, 10/14/16) Home Medications colchicine 0.6mg bid as needed colcrys 0.6mg bid estradiol 1mg daily ferrous sulfate 249md qd niacin 500mg qd PCN v 500mg bid probiotic bid propranolol 20mg bid vitB12 1000mcg daily vitD 1000unit daily PMH as described above Surgical History Right bipolar hip hemiarthroplasty, cemented, performed on 09/28/[address] Issa Dyer. Social History Hx Alcohol Use: No Hx Substance Use: No Smoking Status: Light Tobacco Smoker, Never Smoker, Unknown if Ever Smoker Additional Information currently stays in [facility], used to live independently Exam Exam NAD, comfortably laying down on the bed no JVD, MMM, no LAD RRR, nl s1, s2 no mrg CTAB, no w,c S,ND,NT,normoactive BS+ warm, no edema, pulses 2/2 Rt hip: sterilely dressed Lab and Diagnostics X-Rays, CTs and MRIs PROCEDURE: X-RAY PELVIS W/LAT HIP (RT) ([id number]) INDICATIONS: RIGHT HIP PAIN. TECHNIQUE: AP pelvis and lateral view of the right hip acquired. COMPARISON: Merged With [facility], CR, XR PELVIS W LATERAL HIP RT, 09/28/2016, 14:08. FINDINGS: Bones: Patient is status post right hip arthroplasty, with hardware components in expected positions. The hip joint appears congruent. The visualized bony structures appear intact. Mild to moderate left hip joint degeneration. Advanced degenerative changes of the imaged lumbosacral spine are present. Soft tissues: Overlying postoperative changes are noted. No suspicious soft tissue densities. Multiple surgical clips and sutures within the pelvis. Dystrophic calcification versus calcific tendinitis adjacent to the left greater trochanter. Multiple phleboliths are seen within the pelvis. Previously seen areas of soft tissue air overlying the right hip have resolved. IMPRESSION: Unchanged alignment and appearance of the right hip, status post right hip arthroplasty. No fractures. Dictated by: Yadiel Saab RRA Interpreted: Yash Cornejo MD on 10/14/2016 at 15 :23 Approved by: Yash Cornejo M.D. on 10/14/2016 at 16:29 Assessment & Plan Acute, active recent Rt hip hemiarthroplasty on 09/28, POA, probable surgical site infection based hx, given purulency could be MRSA -will get basic labs, ESR, BCX, PCT, trends BCX, fever curve -start vancomycin to cover MRSA, flagyl to cover anaerobes, will discuss with ID further tomorrow regarding regimen. -CT of Rt hip per ortho recs, tentative plan for wash out tomorrow AM Chronic, stable History of jaw osteomyelitis, status post artificial chin/jaw placement, stable on oral penicillin. Patient takes penicillin twice a day 500 mg, increase his dose to 3 times a day as needed, will broaden abx as above GERD, chronic, Continue home meds hx of gout mostly on Left ankle joint, currently not active, consider cochicine if active HTN, continue home BB dispo:Patient will be admitted with inpatient status with expectation of inpatient therapy for more than 2 midnights diet: pt prefers soft diet, NPO after MN dvt ppx:[facility] CPR is okay but they do not want intubation per discussion with daughter last hospitalization Time spent 65 minutes Aman Arguello MD Oct 14, 2016 16:57
[2016-10-14] MEDS ORDERED: Ondansetron 2 mg/mL 2 mL Inj IVPUSH PRN (17:20)
[2016-10-14 17:36] VITALS: BP 116/69; PULSE 80; RESP 16; O2SAT 97
[2016-10-14] MEDS ORDERED: Vancomycin Dose per Pharmacist XX SCH (17:40)
[2016-10-14] MEDS ORDERED: Vancomycin Inj 1,250 MG in 0.9% Sodium Chloride 250 ML IV ONE (17:50)
[2016-10-14] MEDS ORDERED: SENN-133 PO (17:58)
--- NOTE | 2016-10-14 18:03 | PCM.PHAPRO ---
Progress Date of Service: Oct 14, 2016 Rt hip pain Vancomycin Management Per Pharmacy: Indication: Osteomyelitis (Hip infection) Goal Trough: 15-20 mg/dL Age: 86 yo Weight: 55 kg Labs: WBC: 11.2 SrCr: 0.73 mg/dL Est CrCl: ~40 mL/min Micro: Prurulence from infection site, concern for MRSA Recommendation: Load: Vancomycin 1250 mg IV x 1 now Maintenance: Vancomycin 1000 mg IV Q24h Trough: Draw on 10/16 @ 1999 prior to 3rd dose (early due to pt age, low body weight, immobility, and to ensure pt is clearing drug adequately) Pharmacy to continue to monitor and adjust dose as needed. Thank You, Clarissa Urrutia, Pharm D. Clarissa Urrutia Oct 14, 2016 18:03
[2016-10-14] MEDS ORDERED: PROM25TA14 PO (18:04)
[2016-10-14] MEDS ORDERED: ACET325C PO (18:05)
[2016-10-14 18:13] LABS: BASOPHILS % (AUTO) 0.2 % (0-3); EOSINOPHILS % (AUTO) 2.5 % (0-5); MONOCYTES % (AUTO) 13.2 % (4-12); Mean Corpuscular Hemoglobin 29.1 pg (27.0-35.0); Mean Corpuscular Volume 91.9 fL (81-100); NEUTROPHILS % (AUTO) 64.6 % (40-74); Platelet Count 490 bil/L (150-400)
[2016-10-14 18:16] VITALS: PULSE 80
[2016-10-14 18:29] LABS: Phosphorus 4.1 mg/dL (2.5-4.9)
[2016-10-14 19:04] LABS: ERYTHROCYTE SEDIMENTATION RATE > 140 mm/hr (0-40)
[2016-10-14 19:51] VITALS: BP 128/67; PULSE 67; RESP 16; O2SAT 94
--- NOTE | 2016-10-14 20:20 | CONS ---
[address] [address] CONSULTATION REPORT PATIENT: SHAW IBRAHIM : 1930 MR#: [id number] ADMIT: 10/14/2016 JOB ID: [id number] DATE OF SERVICE: 10/14/2016 ORTHOPEDIC CONSULTATION: CHIEF COMPLAINT: This is an 86-year-old female status post right hip femoral bipolar hemiarthroplasty on September 28, 2016, for a displaced femoral neck fracture. The patient has been at the [facility]. She had been doing well with ambulation. Developed some drainage from the right hip wound. She was seen in the clinic today and noted to have some erythema around her hip with some drainage and findings most consistent with an infection in the hip. Of clinical significance, the patient has had a chronic history of osteomyelitis of her jaw and had a mandibular reconstruction in the past. She is on long-term suppressive antibiotic therapy for this. She has exposed hardware in her mandible; it is out of her skin and has been that way for several years. The patient has been afebrile and her vital signs have been stable. Most recent white count was 12,200. PAST MEDICAL HISTORY: ALLERGIES: INCLUDE CEPHALOSPORINS, HYDROMORPHONE, AND CODEINE. 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 The patient is also on probiotic, propranolol, vitamin D, and vitamin B12. PAST SURGICAL HISTORY: Prior surgeries: She has had the right hip bipolar hemiarthroplasty for the femoral neck fracture. She has also had mandibular reconstruction. SOCIAL HISTORY: The patient evidently has smoked in the past. Currently is living in [facility]. PHYSICAL EXAMINATION: The patient is able to ambulate with her rolling walker. Her hip wound has alexsandra in place, but the skin is erythematous. She does have some serous drainage. She also has some excoriations over her buttocks. The patient has functional range of motion of the hip with no obvious instability. Neurovascular examination intact in the right lower extremity. X-rays of the right hip show the prosthesis in good position. She has alexsandra that are remaining and will remove those tomorrow. There was also some cloudy fluid drainage and she certainly could possibly even have MRSA. Laboratory testing shows a white count of 9500, hemoglobin 9.7, hematocrit of 30.6, platelet count 490. Sodium 130, potassium 3.9, chloride 92, CO2 of 24, BUN 20, creatinine 0.71. Random glucose 139. Albumin low at 3.1. Platelet count elevated at 490,000. PT, PTT, and INR not performed but will request that those be performed. IMPRESSION: Infection status post right hip bipolar hemiarthroplasty for displaced femoral neck fracture. PLAN: We will request a CT scan of the hip to rule out any large fluid collections. We will also ask that Radiology do an aspiration under fluoroscopic technique for the hip joint and send that fluid for culture and sensitivity, as well as cell count with differential. I will then plan to take the patient to the operating room later in the day for staple removal and washout of her wound. The extent of the washout and the depth of the washout of the wound will be depended upon the intraoperative findings. Dr. Santillan has been consulted. He will help coordinate the type of antibiotics and the length and duration of the antibiotics. Family has indicated that they do not want any heroic measures performed on this patient, but they are certainly in agreement that she could have the wound irrigated. I have also discussed the case with Dr. Carrasquillo and Dr. Gonzalez. We are in agreement that wound washout is indicated. The patient is also aware that she may require additional surgical intervention. I have explained the risks of surgery to the patient and the daughter including bleeding, infection, pain and stiffness, and potential for damage to surrounding neurovascular structures, as well as potential for additional surgical intervention. Surgical consent has been signed. CC: [facility]
[2016-10-14] MEDS ORDERED: metroNIDAZOLE Inj 1,000 MG in IV Premix 1 EACH IV SCH (20:30)
[2016-10-14] MEDS: 0.9% Sodium Chloride 1,000 ML IV SCH (21:04)
[2016-10-15] VITALS (16 sets, daily range): BP systolic 121–158; BP diastolic 54–98; PULSE 70–105; RESP 18–21; O2SAT 92–98
--- NOTE | 2016-10-15 02:54 | NUR ---
Pain/Activity Pt reports pain 2-4/10 at times and none at other times, She does say her right ankle has pain 10/10 when she moves it. 0 swelling noted or warmth to joint, 0 bruising. Pt transferred to [facility] and determined it is from the way she is using that foot to pivot without full weight bearing. Tylenol given and elevated on pillows. Pt up to [facility] multiple times with minimum assist.
[2016-10-15] MEDS ORDERED: Propofol 10,000 mCg/mL 20 mL Inj ONE (06:00)
[2016-10-15] MEDS ORDERED: fentaNYL-PF 50 mCg/mL 2 mL Inj ONE (06:00)
[2016-10-15 08:27] LABS: BASOPHILS % (AUTO) 0.3 % (0-3); EOSINOPHILS % (AUTO) 3.2 % (0-5); Mean Corpuscular Hemoglobin 29.2 pg (27.0-35.0); Mean Corpuscular Volume 91.1 fL (81-100); NEUTROPHILS % (AUTO) 61.2 % (40-74); Platelet Count 464 bil/L (150-400)
[2016-10-15 08:39] LABS: INR 0.99 ratio
[2016-10-15] MEDS: 0.9% Sodium Chloride 1,000 ML IV SCH ×2 (08:55→19:49)
[2016-10-15 08:59] LABS: Phosphorus 4.3 mg/dL (2.5-4.9)
[2016-10-15 09:05] LABS: ERYTHROCYTE SEDIMENTATION RATE 69 mm/hr (0-40)
--- NOTE | 2016-10-15 09:41 | PCM.PNMED ---
Subjective Date of Service Oct 15, 2016 Subjective pt was stable afebrile, taken to OR this AM Exam Vital Signs Vital Sign - Last Date Time Temp Pulse Resp B/P Pulse Ox O2 Delivery O2 Flow Rate FiO2 10/15/16 09:20 36.7 87 18 146/65 97 Room Air Intake and Output 10/14/16 10/14/16 10/15/16 Cumulative From/Thru 15:00 23:00 07:00 10/14/16 17:37 - 10/15/16 05:47 Intake Total 440 ml 440 ml Output Total 1100 ml 1100 ml Balance -660 ml -660 ml Intake Oral 440 ml 440 ml Output Urine Total 1100 ml 1100 ml # Bowel Movements 0 0 Exam NAD, comfortably laying down on the bed no JVD, MMM, no LAD RRR, nl s1, s2 no mrg CTAB, no w,c S,ND,NT,normoactive BS+ warm, no edema, pulses 2/2 Rt hip: sterilely dressed IVs and Medications Medications Reviewed: Medications were reviewed in detail Lab and Diagnostics Result Diagram: 10/15/16 0740 10/15/16 0740 X-Rays, CTs and MRIs PROCEDURE: X-RAY PELVIS W/LAT HIP (RT) ([id number]) INDICATIONS: RIGHT HIP PAIN. TECHNIQUE: AP pelvis and lateral view of the right hip acquired. COMPARISON: [facility], CR, XR PELVIS W LATERAL HIP RT, 09/28/2016, 14:08. FINDINGS: Bones: Patient is status post right hip arthroplasty, with hardware components in expected positions. The hip joint appears congruent. The visualized bony structures appear intact. Mild to moderate left hip joint degeneration. Advanced degenerative changes of the imaged lumbosacral spine are present. Soft tissues: Overlying postoperative changes are noted. No suspicious soft tissue densities. Multiple surgical clips and sutures within the pelvis. Dystrophic calcification versus calcific tendinitis adjacent to the left greater trochanter. Multiple phleboliths are seen within the pelvis. Previously seen areas of soft tissue air overlying the right hip have resolved. IMPRESSION: Unchanged alignment and appearance of the right hip, status post right hip arthroplasty. No fractures. Dictated by: Yadiel JANE Interpreted: Yash Cornejo MD on 10/14/2016 at 15 :23 Approved by: Yash Cornejo M.D. on 10/14/2016 at 16:29 Assessment & Plan Acute, active recent Rt hip hemiarthroplasty on 09/28, POA, probable surgical site infection based hx, given purulence could be MRSA -lab trends better today, appreciate ortho recs, plan for wash out today -abx were ordered but not initiated by , appreciate ID input, -CT of Rt hip per ortho recs, Chronic, stable History of jaw osteomyelitis, status post artificial chin/jaw placement, stable on oral penicillin. PCN V 500mg tid, will broaden abx as above GERD, chronic, Continue home meds hx of gout mostly on Left ankle joint, currently not active, consider cochicine if active HTN, continue home BB insomnia, reported, will try zolpidem2.5 to 5mg prn dispo:pending, likely 2-3more days diet: pt prefers soft diet, NPO after MN dvt ppx:SCD DNR/DNI, per daughter, confirmed on admission VTE Mechanical Devices: Intermittant Pneumatic CD Time spent 35min Aman Arguello MD Oct 15, 2016 09:40
--- NOTE | 2016-10-15 10:09 | DRSVH ---
PROCEDURE: X-RAY JOINT INJ. LG CristalT ([id number]) INDICATIONS: RIGHT HIP INFECTION TECHNIQUE: The indications, alternatives, benefits, risks, and complications of the procedure were explained to the patient. Written informed consent was obtained and placed in the chart. The patient was placed in an appropriate position on the fluoroscopy table, and a site was chosen for percutaneous access un bernardino fluoroscopic guidance. The site was prepped and draped in a sterile fashion. Local anesthetic w as administered using a 1% lidocaine solution. A hypodermic or spinal needle was then used to access the symptomatic joint and roughly 3 cc of slightly cloudy synovial fluid was aspirated. The needle was then withdrawn, and a bandage applied to the puncture site. The attending physician was personal ly present in the room during the examination. FINDINGS: Joint aspirate: Right hip joint. Complications: None. IMPRESSION: Successful fluoroscopically guided right hip arthrocentesis. Dictated by: Yadiel JANE Interpreted: Yash Cornejo MD on 10/15/2016 at 10:08 Transcribed by: MALLORY on 10/15/2016 at 10:08 Approved by: Yash Cornejo M.D. on 10/15/2016 at 17:31
[2016-10-15 10:50] LABS: BFWBC 14500 /mm3; MONOCYTES,BODY FLUID 0 %; OTHER CELLS,BODY FLUID 0
--- NOTE | 2016-10-15 11:05 | DRSVH ---
PROCEDURE: CT HIP RIGHT WITH CONTRAST ([id number]) INDICATIONS: INFECTION TECHNIQUE: After the administration of intravenous contrast, 3 mm axial sections acquired of the right hip/proxi mal thigh, with coronal and sagittal reformats. For radiation dose reduction, the following was used : automated exposure control, adjustment of mA and/or kV according to patient size. COMPARISON: [facility], CR, XR PELVIS 1 OR 2VW, 09/27/2016, 20:50. [facility], CR, XR FEMUR 2VW RT, 09/27/2016, 16:20. [facility], CR, XR PELVIS W LATERAL HIP RT, , 14:52. FINDINGS: Image quality: Suboptimal evaluation of the lower pelvic structures and the upper right thigh structu res is related to metallic beam hardening artifact from the right hip prosthesis. Bones: Evaluation of the lower bony pelvis and the upper right femur is limited related to beam harde jannette artifact from a right hip arthroplasty. The acetabular and the femoral components of our and in tact. No periprosthetic fracture is identified. No lucency surrounding the prosthetic is evident. Lucency involving the anterior aspect of the acetabulum is noted, which probably is degenerative give n mild sclerosis along the margins of this structure. While not well evaluated on this examination, there are at least moderate degenerative changes of the included lumbosacral spine and left hip. Mild degenerative changes of the pubis symphysis are prese nt. No suspicious osseous lesions of the imaged osseous structures of the pelvis are identified. No acute fractures or dislocations are evident. Soft tissues: Evaluation of the soft tissues of the lower pelvis is limited related to metallic artif act from the right hip prosthesis. There is mild edema within the soft tissues overlying the right h ip, particularly involving the distal right gluteus medius, gluteus minimus, and gluteus anitha musc les. There probably is a small hip effusion. No massive hip effusion is appreciated. No loculated fluid collections are evident. Postoperative changes within the pelvis is identified scattered throughout the mesentery and involvin g the colon. No free fluid, loculated fluid collection or free air is evident. There is no lymphade nopathy. The bladder is largely obscured by metallic artifact. No bladder abnormality is appreciate d. There's a small fat-containing right inguinal hernia. Atherosclerotic changes are noted involvin g the iliac arteries, lower, aorta, and proximal thigh arteries. IMPRESSION: 1. Postop with changes related to a right hip arthroplasty. No periprosthetic fracture or lucency. 2. Small right hip effusion. 3. Edema within the right gluteal muscles is probably postoperative. Superimposed infection is felt to be unlikely. No classic walled off peripherally enhancing abscess is evident. Dictated by: Yash Cornejo M.D. on 10/15/2016 at 10:40 Approved by: Yash Cornejo M.D. on 10/15/2016 at 11:03
[2016-10-15] MEDS ORDERED: Vancomycin Dose per Pharmacist XX SCH (12:00)
--- NOTE | 2016-10-15 12:52 | CONS ---
[address] [address] CONSULTATION REPORT PATIENT: SHAW IBRAHIM : 1930 MR#: [id number] ADMIT: 10/14/2016 JOB ID: [id number] DATE OF SERVICE: 10/15/2016 INFECTIOUS DISEASE CONSULTATION: I thank Dr. Issa Dyer for this consult. REASON FOR CONSULTATION: Infection of recent partial right hip arthroplasty. HISTORY OF PRESENT ILLNESS: The patient is extremely well known to me from an admission in late August. On September 26 of this year, only a little more than two weeks ago, the patient was walking and tripped over a dog that was standing on the street next to where she was ambulating. She had a fracture of her right hip as result of this event and was brought to the hospital. Because she is ALLERGIC TO CEPHALOSPORINS, I was contacted while on vacation in [place] by the orthopedic surgeon and recommended vancomycin be given instead of cefazolin because of this history of cephalosporin-related issues, which was not well characterized at that time. In any event the patient received three days of vancomycin in accordance with the orthopedic instructions including a preoperative dose. I was asked to see the patient in consult upon my return and I saw her on September 29, which was one day after she had had the hip surgery. At that point she had been started on some levofloxacin because of Klebsiella that had grown in her urine, but it was notable that she did not have any pyuria whatsoever and had no symptoms, and so I recommended the levofloxacin be stopped as recent guidelines and articles suggest that treating asymptomatic bacteriuria in patients about to undergo orthopedic surgery is of no benefit and may predispose to C. diff. In any event, she got three days of vancomycin and a couple of doses of levofloxacin during that perioperative period including preoperative vancomycin for her surgery on September 27. Subsequently the patient did quite well and went to [facility], which is a local correction facility. There she says she has been doing quite well with her rehab and has been able to walk around somewhat and not having undue pain or problems with the hip. About three days ago the patient noted some erythema and purulent drainage from her right hip incision. She was evaluated by Dr. Dyer yesterday who admitted her to the hospital and recommended an aspirate of the hip joint which was done by Interventional Radiology. It was then decided to take the patient for exploration and washout of the hip to see whether this was primarily a superficial or deep infection, and that surgery is scheduled for later on this morning. The patient tells us that even though her wound became red and there was some drainage it was not very painful and she still had pretty good function in her new right hip. She also tells us there have been no fevers, chills, sweats, headache, or myalgias or arthralgias, or any other constitutional symptoms suggesting significant deep space infection. PAST MEDICAL HISTORY: Past history is notable for: 1. History of osteo involving the mandible which eventually required complete removal of the mandible and the placement of a metal prosthesis which has subsequently eroded through at the right side of the chin so that there is exposed metal. 2. Chronic penicillin VK prophylaxis which she is used to prevent infection around the mandibular appliance. 3. History of CEPHALOSPORIN ALLERGY. 4. Hip fracture September 26 with partial right hip arthroplasty September 27. 5. History of appendectomy and cholecystectomy. SOCIAL HISTORY: The patient smoked about four cigarettes a day until her hip fracture in late August and she has been nonsmoking now for two weeks. She does not drink alcohol and does not abuse drugs. She is a , her having left two years ago, and she lives locally with daughters who are very involved with her care. FAMILY HISTORY: Positive for TB in her grandmother. The patient said she has been tested many many times for TB and is always negative. REVIEW OF SYSTEMS: Today the patient has no significant headache, no acute visual change, no sinus complaint, no sore throat, no cough. No chest pain, shortness of breath, nausea, vomiting, or diarrhea, though she has a bit of urinary urgency but no dysuria. She does not have a Nolasco catheter and has not had one except around the time of her surgery two weeks ago. The patient has no complaint in any joint except her right hip. She has no skin rash. Remainder of the review of systems is negative. PHYSICAL EXAMINATION: Reveals an afebrile woman temp 36.7, pulse 86, respiratory rate 18, blood pressure 146/65. She is saturating well on room air and in no acute distress. Head: Without trauma. Eyes: Without conjunctivitis. Nose: Normal. Oral cavity: Without thrush or hairy leukoplakia but she has, as before, exposed metal coming as part of her prosthetic mandibular prosthesis which is visible in the right chin area. It appears uninfected and is neither fluctuant nor tender around that area. Neck: Without notable abnormalities. No adenopathy. Lungs: Clear. Cardiac: Tones with a 1/6 murmur heard best in the aortic area. It is a systolic murmur. Abdomen: Soft and nontender, without organomegaly. She is wearing a diaper or briefs. She does not have a Nolasco. No suprapubic abnormalities or tenderness. No inguinal adenopathy. The right hip incision is diffusely erythematous and there is purulent material, especially along the superior aspect of the right hip incision. The knees are without evidence of synovitis. There is no evidence of skin rash. There is no peripheral edema. She has good peripheral pulses. She is neurologically intact. LABORATORIES: Include a white count of 7400. Diff essentially normal. A sed rate when she came in yesterday greater than 140, today is 69. CRP is 6.4, which is 13 times normal. Creatinine 0.56. LFTs normal. Procalcitonin zero. Urinalysis last admission without white cells. None has been done this time. The aspirate of the fluid done by radiology shows 14,000 white cells, all polys, and 20,000 red cells. Micro studies include the urine that grew Klebsiella back on September 27, which was the date of her original surgery. There was a MRSA screen of the nares that was done back on September 27 that was negative. We have not repeated that yet, but we will. The aspirate from the hip shows no polys, no organisms, though obviously there are polys based on the cell count. Blood cultures done yesterday, when she was readmitted, are negative. IMAGING: Includes a CT of the hip done this morning. It shows postop changes related to her right hip. The prosthesis itself appears normal. There is a small effusion and some edema in the right gluteal muscles which the radiologist thought was probably postoperative. They thought infection was unlikely based on the CT with contrast appearance. IMPRESSION: This patient underwent a partial right hip arthroplasty following a fall and hip fracture on September 26. She received vancomycin preop prophylaxis because of a history of cephalosporin allergy and received a dose or two of levo because of asymptomatic bacteriuria with Klebsiella postop. She did well for a period of about 10-14 days and then developed erythema and some drainage without constitutional symptoms. Whether she has a superficial or deep infection, which might even involve the hardware, remains unclear at this time. The patient certainly looks nontoxic and she has a normal white count, no fever, and a moderately elevated CRP. Hopefully this will prove to be a superficial rather than deep infection, though the occurrence of 14,000 white cells in the joint fluid is probably a bit excessive for someone two weeks postop. RECOMMENDATIONS: 1. The patient is scheduled to go to surgery here in the next hour or so. Appropriate preop antibiotics here would probably include vancomycin, though I am a bit concerned about the fact that apparently vancomycin preop failed as part of her original surgery if we speculate that this is a staphylococcal infection. Nonetheless, I think that is the appropriate agent to start with and will give her a loading dose of vancomycin. 2. Will give the patient a single preoperative dose of levofloxacin as well. The microbiology of this infection is unclear. Looking at it I would guess most likely Staph or strep but the possibility of gram-negative infection cannot be excluded and given the patient's allergy to cephalosporins, which sounds quite severe, I am reluctant to give a cephalosporin agent. A carbapenem would be another choice here, such as ertapenem, but I think in the interest of safety and expedience we will give the levofloxacin and vancomycin combination right now. Thank you very much for this consult.
--- NOTE | 2016-10-15 13:30 | NUR ---
Pt of Unit Pt off unit to OR.
[2016-10-15] MEDS ORDERED: Lactated Ringer's 1,000 ML IV ONE (13:51)
[2016-10-15] MEDS ORDERED: Lactated Ringer's 500 ML IV PRN (14:29)
[2016-10-15] MEDS ORDERED: Lactated Ringer's 1,000 ML IV SCH (14:29)
[2016-10-15] MEDS ORDERED: Dexamethasone 4 mg/mL Inj IVPUSH PRN (14:30)
[2016-10-15] MEDS ORDERED: EPHEDrine Sulfate 50 mg/mL Inj IVPUSH PRN (14:30)
[2016-10-15] MEDS ORDERED: Phenylephrine 10,000 mCg/mL Inj IVPUSH PRN (14:30)
[2016-10-15] MEDS ORDERED: fentaNYL-PF 50 mCg/mL 2 mL Inj IVPUSH PRN (14:30)
[2016-10-15] MEDS ORDERED: MetoCLOpramide 5 mg/mL 2 mL Inj IVPUSH PRN (14:30)
[2016-10-15] MEDS ORDERED: Ondansetron 2 mg/mL 2 mL Inj IVPUSH PRN (14:30)
--- NOTE | 2016-10-15 14:37 | PCM.HPANE ---
Patient Data Surgeon Admitting Provider:Aman Arguello MD Attending Provider:Aman Arguello MD Primary Care Physician:Angel Estes MD Other Provider: Reason for Visit Right Hip Infection Ht/WT & BMI Height (Feet): 5 Height (Inches): 0.00 Weight (Kilograms): 55.000 Body Mass Index 23.81 Allergies Coded Allergies: Cephalosporins (Verified Allergy, Severe, tongue swelling, itching, ) hydromorphone (Verified Allergy, Severe, itchy all over body, 10/14/16) codeine (Verified Allergy, Intermediate, vomiting, 10/14/16) Past Anesthesia History Anesthesia History: Denies:: Anesthesia Reactions Diabetes History Hx Diabetes?: No MRSA MRSA: No Medications Active Scripts Ferrous Sulfate 325 Mg Hhbugb350 Mg PO BID 14 Days Ref 0 Prov:Acacia Andres DO 10/02/16 Hydrocodone-Acetaminophen 5-300 mg 1 Each Tablet1 Tablet PO Q4H PRN For Pain # 10 TABLET Ref 0 Prov:Acacia Andres DO 10/02/16 Tramadol 50 Mg Pnmlmt72 Mg PO Q6H PRN For Pain #10 TABLET Ref 0 Prov:Acacia Andres DO 10/02/16 Enoxaparin (Lovenox)30 Mg/0.3 Ml Mrvnnbc86 Mg SUBQ DAILY #21 SYR Ref 0 Prov:Acacia Andres DO 10/01/16 Aspirin 325 Mg Vfdibn580 Mg PO BID 21 Days Ref 0 Prov:Acacia Andres DO 10/01/16 Polyethylene Glycol 3350 (Miralax)17 Gm Powd.pack17 Gm PO DAILY PRN For Constipation #3 Prov:Acacia Andres DO 10/01/16 Reported Medications Acetaminophen 325 Mg Tskopfk576 Mg PO Q4H PRN For Pain 10/14/16 Promethazine 25 Mg Qkmgek26 Mg PO Q6H PRN For Nausea/Vomiting 10/14/16 Sennosides (Senna)8.6 Mg Wopaxg26.2 Mg PO HS 10/14/16 Triazolam 0.125 Mg Tablet0.125 Mg PO HS PRN Insomnia 09/28/16 Colchicine (Colcrys)0.6 Mg Tablet0.6 Mg PO DAILY PRN gout 09/28/16 Penicillin V Potassium 500 Mg Lhhykf773 Mg PO BID Ref 0 09/27/16 Clotrimazole 10 Mg Zbpwww84 Mg BUCCAL TID 09/27/16 Calcium Carbonate (Calcium)600 Mg Xrikex140 Mg PO DAILY 09/27/16 Omeprazole Magnesium (Prilosec Otc)20 Mg Tablet.dr20 Mg PO QAM 09/27/16 Lactobacillus Acidophilus (Acidophilus Lactobacillus)1 Each Capsule1 Capsule PO BID 09/27/16 Niacinamide (Niacin)500 Mg Bbtldg182 Mg PO TIDWM 09/27/16 Cyanocobalamin (Vitamin B12)500 Mcg Tablet1,000 Mcg PO DAILY 09/27/16 Cholecalciferol (Vitamin D3) (Vitamin D3)1,000 Unit Tab.chew1,000 Unit PO DAILY 09/27/16 Furosemide 20 Mg Tab20 Mg PO QAM 09/27/16 Propranolol HCl 40 Mg Mxuucp61 Mg PO BID 09/27/16 Discontinued Scripts [Senna/Docusate Sodium] (Senokot S)1 TABLET TABLET No Conflict Check1 Tablet PO BID #3 Prov:Acacia Andres DO 10/01/16 History History of ENT Problems?: Yes HEENT History: Positive for:: Cataracts (S/P L. eye repair ) Dysphagia (Soft food. 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.) Sinus Problem (Chronic sinus drainage due to allergy) Denies:: Glaucoma Denture Type: None Teeth Condition: No Teeth (lower) Hx of Heart Problems?: Yes Cardiovascular History: Positive for:: Edema Irregular Heartbeat (On propanolol) Denies:: Cardiac Surgery Chest Pain Congestive Heart Failure Heart Murmur Pacemaker Thrombophlebitis Hx of Respiratory Problem?: No Respiratory History: Denies:: Asthma COPD Chest Surgery Dyspnea Emphysema Hemoptysis Pneumonia Tuberculosis Hx Neurologic Problems?: Yes Neurological History: Positive for:: Dizziness (Not for years) Denies:: Alzheimer's Disease CVA Dementia Headaches Parkinson's Disease Seizures Hx of GI Problems?: Yes Hx of Problems?: Yes Genitourinary History: Positive for:: Urinary Tract Infection (Maybe) Denies:: HX of Hemodialysis Kidney Stones HX of Peritoneal Dialysis: No Female Hx: Denies:: Currently Endometriosis Pelvic Inflammatory Problems with Breasts? Hx Musculoskeletal Problems?: Yes Musculoskeletal History: Positive for:: Joint Replacement (Jaw bone craft) Musculoskeletal Trauma (fall s/p rt.hip bipolar hemiarthroplasty) Denies:: Back Injury Hx of Psycho/Social Problems?: No Psycho Social History: Denies:: Anxiety Bipolar Disorder Hx Depression Suicide Attempt Hx Surgeries?: Yes (low jaw amputation, hyst, appy, lottie, tonsillectomy) Hx Any Other Health Problems?: Yes Other History: Positive for:: Hospitalization Denies:: Cancer Thyroid Disease History Blood Transfusions: Positive for:: Accept Blood Products? Blood Transfusions Denies:: Blood Transfuse Reaction Hx Diabetes: No Other Pertinent History: recent rt.hip bipolar hemiarthroplasty Hx Alcohol Use: NoHx Substance Use: No Smoking Status: Light Tobacco Smoker Never Smoker Unknown if Ever Smoker Have You Smoked inLast 12 mo: Yes Stop/Bang Treated for Sleep Apnea?: No Do You Have a CPAP Machine?: No S-Snoring: Do You Snore Loudly: No T-Tired: feel tired, fatigued: No O-Obsered: Observed not breath: No P-Blood Pressure: treated: Yes B- Body Mass Index > 35 kg/m2: No A- Age over 50: Yes N- Neck Large Circumference: No G- Gender Male: No ASHLEY Total Score: 1 Risk Assessment Category Category 1A: Patient has history of documented sleep apnea, and HAS NOT received any narcotic, sedative or anesthesia administration during this stay. Category 1B: Patient has history of documented sleep apnea, and HAS received any narcotic , sedative or anesthesia administration during this stay Category 2: Patient has SUSPECTED Obstructive Sleep Apnea, and HAS received any narcotic , sedative or anesthesia administration during this stay. Category 3: Patient has SUSPECTED Obstructive Sleep Apnea and HAS NOT received narcotic, sedative or anesthesia administration during this stay. Category 4: Outpatient in Procedural Areas with known sleep apnea or who screen positive for High Risk via the STOP/BANG questionnaire. Exam Exam Vital Signs Vital Signs Date Time Temp Pulse Resp B/P Pulse Ox O2 Delivery O2 Flow Rate FiO2 10/15/16 05:46 70 10/15/16 04:09 36.8 94 18 121/64 93 Room Air 10/15/16 00:10 36.8 96 18 124/61 93 Room Air General Appearance: Alert, Oriented X3, Cooperative, No Acute Distress HEENT/AIRWAY: MP 3 Lungs: Clear to Auscultation Heart: Exam Unremarkable Meds/Labs/Diagnostics Admission Meds Current Medications Sodium Chloride (Normal Saline) 1,000 ml @ 80 mls/hr [id number] IV Last administered on 10/14/16 21:04; Start 10/14/16 at 20:25 Temazepam (Restoril) 15 mg HS ONCE PO Last administered on 10/14/16 21:04; Start 10/14/16 at 21:00; Stop 10/14/16 at 21:01; Status DC Labs Test 10/14/16 17:55 White Blood Count 9.5th/mm3 (3.8-10.1) Red Blood Count 3.33mil/mm3 (3.90-5.20) Hemoglobin 9.7g/dL (12.0-15.6) Hematocrit 30.6% (35.0-46.0) Mean Corpuscular Volume 91.9fL (81-100) Mean Corpuscular Hemoglobin 29.1pg (27.0-35.0) Mean Corpuscular Hemoglobin Concent 31.7% (32.0-37.0) Red Cell Distribution Width 15.9% (12.3-15.4) Platelet Count 490bil/L (150-400) Neutrophils (%) (Auto) 64.6% (40-74) Lymphocytes (%) (Auto) 18.9% (14-46) Monocytes (%) (Auto) 13.2% (4-12) Eosinophils (%) (Auto) 2.5% (0-5) Basophils (%) (Auto) 0.2% (0-3) Erythrocyte Sedimentation Rate > 140mm/hr (0-40) Prothrombin Time 10.7sec (8.1-12.5) Prothromb Time International Ratio 1.00ratio Sodium Level 130mEq/L (134-144) Potassium Level 3.9mEq/L (3.5-5.2) Chloride Level 92mEq/L (97-108) Carbon Dioxide Level 24mmol/L (18-29) Blood Urea Nitrogen 20mg/dL (8-27) Creatinine 0.71mg/dL (0.57-1.00) Estimat Glomerular Filtration Rate 112mL/min (>59) Glucose Level 139mg/dL (60-99) Calcium Level 9.2mg/dL (8.5-10.1) Phosphorus Level 4.1mg/dL (2.5-4.9) Magnesium Level 2.0mg/dL (1.6-2.6) Total Bilirubin 0.3mg/dL (0.0-1.2) Aspartate Amino Transf (AST/SGOT) 19U/L (0-50) Alanine Aminotransferase (ALT/SGPT) 14U/L (0-32) Alkaline Phosphatase 58U/L (25-165) C-Reactive Protein 6.4mg/dL (0.0-0.5) Total Protein 6.9g/dL (6.4-8.4) Albumin 3.1g/dL (3.4-5.0) Procalcitonin 0.06ng/mL (0.00-0.08) Hold Dawson Top Tube Received (Received) Plan Impression Patient chart reviewed, patient interviewed and anesthestic plan with risks, benefits, and alternatives discussed, and informed consent obtained. ASA Physical Status: ASA2 Mod Systemic Disease Anesthetic Plan: GA Bene/Risks/Altern/Consents: Yes HP Complete Prior to Induction: Yes Mariano Lu MD Oct 15, 2016 07:41
[2016-10-15] MEDS ORDERED: levoFLOXacin Inj 500 MG in IV Premix 1 EACH IV SCH (14:56)
[2016-10-15] MEDS ORDERED: Vancomycin Inj 1,250 MG in 0.9% Sodium Chloride 250 ML IV ONE (15:00)
--- NOTE | 2016-10-15 15:18 | PCM.ANEP1 ---
Post Anesthesia PACU Phase 1 Assessment Vital Signs Vital Signs Date Time Temp Pulse Resp B/P Pulse Ox O2 Delivery O2 Flow Rate FiO2 10/15/16 15:10 103 19 148/75 96 Room Air 10/15/16 15:05 104 21 158/78 97 Room Air 10/15/16 15:00 37.1 158/70 10/15/16 12:55 36.8 96 18 155/69 97 Room Air 10/15/16 09:20 36.7 87 18 146/65 97 Room Air 10/15/16 07:59 36.8 98 18 150/64 92 Room Air Anesthetic Administered: GA Level of Alertness: Awake, talking Pain: No Pain Scale Score: 10 Nausea or Vomiting: No CV Function & Hydration Stable: No Airway Device: Oxygen Delivery: Room Air Lungs: Clear to Auscultation Dermatome Level: Full Sensation PACU Phase 2 Assessment Complications: Yes (Broken upper tooth recovered in PACU. Signs of tooth decay present) Patient Instructions Provided: Yes (Will follow up regarding tooth) Mariano Lu MD Oct 15, 2016 15:18
[2016-10-15] MEDS ORDERED: Acetaminophen IV 1,000 MG in IV Premix 1 EACH IV PRN (15:20)
[2016-10-15] MEDS ORDERED: HYDROmorphone 2 mg/mL Inj IVPUSH PRN (15:20)
[2016-10-15] MEDS ORDERED: diphenhydrAMINE 25 mg Capsule PO PRN (15:20)
--- NOTE | 2016-10-15 15:56 | NUR ---
Post Op Pt arrived back to [facility] at 1545 via stretcher. Pt tolerated slide board to transfer from stretcher. Pt denies any pain. Dressing C/D/I and wound vac in place. Nolasco catheter patent and draining to gravity. Pt re-oriented to room. Denies nausea and given ice chips and water. Offered pt some jello, but states that "I am not hungry at the moment." Pt's tooth is placed in the locked med drawer for safety. Care continues.
[2016-10-15] MEDS: Sodium Chloride LOK Flush 10 mL Syringe IV SCH (16:09)
[2016-10-15 16:25] LABS: APPEARANCE,URINE HAZY (CLEAR,HAZY); COLOR,URINE YELLOW (YELLOW); OCCULT BLOOD,URINE NEGATIVE (NEGATIVE); PH,URINE 7.5 (5.0-8.0); UROBILINOGEN,URINE NORMAL (NORMAL)
--- NOTE | 2016-10-15 19:41 | OP ---
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 SURGEON: Michael Carrasquillo MD SUPERVISOR LOADING: Gunjan Zamarripa PA-C. [place] Machine Operator required due to the potential complexity of the operation the potential to have to extend the case down to the hip joint. COMPLICATIONS: None. INDICATIONS: This patient was treated with a bipolar hip arthroplasty for a fracture performed by Dr. Issa Dyer. At followup at two weeks the proximal aspect of the wound was draining a serous fluid with erythema on wound edges consistent with a wound infection. She was sent for an aspirate in Radiology with benign-appearing fluid obtained without bacteria nor significant white cells. Cultures are pending. It was elected to proceed with an incision and drainage in the operating room, with the plan to extend the I and D as deep as the infection indicated. Findings of surgery revealed the proximal aspect of the wound to be erythematous. The skin had healed distally but not proximally and there was a serosanguineous exudate consistent with an early hip infection. The deep fascia was solidly healed, without any evidence of purulent drainage coming from the deep hip joint. No sinus tracts were palpable or apparently present. COMPLICATIONS: None. PROCEDURE: The patient was prepped and draped in the usual sterile fashion. All the alexsandra were removed after sterile prepping and draping. The hip was opened in the proximal aspect where it was not healed and serosanguineous drainage was noted. Minimal necrotic tissue was encountered. All deep sutures were removed. Deep cultures were obtained and sent. Careful palpation of the wound revealed no evidence of compromise of the deep fascia, which was solidly healed. A small abscess cavity extended proximal to the end of the wound but remained superficial in its extent. Copious irrigation with pressurized lavage was performed. The distal end of the wound was closed loosely with large retention sutures. The proximal end of the wound was packed with a wound VAC gauze, with a superficial wound VAC gauze placed over the distal portion where the skin had been closed with retention sutures. Wound VAC was applied. POSTOPERATIVE PLAN: Antibiotics as indicated by cultures and as recommended by Infectious Disease. Wound VAC management. Potential for delayed primary closure. However, likely will just wait and allow the wound to heal with local wound care utilizing wound VAC and then subsequent dressing changes. Cultures will be checked of the deep hip aspirate and if bacterial growth is noted the patient would need to return to the operating room for incision and drainage of the hip joint itself. At this point in time it is unlikely that intra-articular space is infected.
--- NOTE | 2016-10-15 19:53 | PCM.PHAPRO ---
Progress Date of Service: Oct 15, 2016 Rt hip pain Vancomycin Management Per Pharmacy: Indication: Osteomyelitis (Hip infection) Goal Trough: 15-20 mg/dL Age: 86 yo Weight: 55 kg Labs: WBC: 9.5 SrCr: 0.6 mg/dL Est CrCl: ~55 mL/min Micro: Prurulence from infection site, concern for MRSA Recommendation: Load: Vancomycin 1250 mg IV x 1 now Maintenance: Vancomycin 500 mg IV Q12h Trough: Draw on 10/17 @ 1700 prior to 4th maintenance dose Pharmacy to continue to monitor and adjust dose as needed. Thank You, Clarissa Urrutia, Pharm D. Clarissa Urrutia Oct 15, 2016 19:53
[2016-10-15] MEDS ORDERED: Vancomycin 1 Gm/200 mL NS Premix IV SCH (21:00)
[2016-10-16 00:12] VITALS: BP 123/53; PULSE 87; RESP 20; O2SAT 93
[2016-10-16] MEDS: Sodium Chloride LOK Flush 10 mL Syringe IV SCH ×3 (00:18→14:51)
[2016-10-16 04:33] VITALS: BP 128/62; PULSE 102; RESP 20; O2SAT 97
[2016-10-16] MEDS ORDERED: Vancomycin Inj 500 MG in 0.9% Sodium Chloride 100 ML IV SCH (06:00)
[2016-10-16 06:08] LABS: BASOPHILS % (AUTO) 0.1 % (0-3); EOSINOPHILS % (AUTO) 1.5 % (0-5); MONOCYTES % (AUTO) 13.8 % (4-12); Mean Corpuscular Hemoglobin 28.9 pg (27.0-35.0); Mean Corpuscular Volume 92.8 fL (81-100); NEUTROPHILS % (AUTO) 65.9 % (40-74); Platelet Count 440 bil/L (150-400)
--- NOTE | 2016-10-16 06:11 | PCM.PNORTH ---
Subjective Date of Service: Oct 16, 2016 Visit Information: Reason for Visit Right Hip Infection Surgery/Surgery Date Post-Op Day # Date of Admission: Oct 14, 2016 at 17:14 Hospital Day # Subjective Found patient awake this morning with head of bed slightly raised and patient is well-positioned. No complaints of pain at this time. Patient is pleasant and very hard of hearing without her hearing aids. She can hear if you speak very close to her ear and in a loud voice. She is very willing to allow me to look at her right hip and wound VAC is in place there and working. Nursing as well as his me that patient's tooth was somehow dislodged prior to her surgery possibly during intubation and this tooth is preserved in a container in the drawer at her bedside. Postop General: No Complaints, No Shortness of Breath, No Chest Pain Pain Management: PO Objective Exam Objective Alert and pleasant. Wound VAC in place and working over right hip wound. Toe wiggle and sensation are intact at right lower extremity distally. Calf and thigh are soft and nontender. Nolasco in place and working Left SCD in place Vital Signs and I/O Vital Sign - Last Date Time Temp Pulse Resp B/P Pulse Ox O2 Delivery O2 Flow Rate FiO2 10/16/16 04:33 37.1 102 20 128/62 97 Room Air Intake and Output 10/15/16 10/15/16 10/16/16 Cumulative From/Thru 15:00 23:00 07:00 10/14/16 17:37 - 10/15/16 17:59 Intake Total 1598 ml 425 ml 2463 ml Output Total 1300 ml 2400 ml Balance 1598 ml -875 ml 63 ml Intake Oral 400 ml 840 ml IV Total 1598 ml 25 ml 1623 ml Output Urine Total 1300 ml 2400 ml # Bowel Movements 0 Lab & Micro Results Laboratory Tests Test 10/15/16 07:40 10/15/16 10:47 10/15/16 16:00 10/16/16 04:39 White Blood Count 7.4th/mm3 (3.8-10.1) Red Blood Count 3.36mil/mm3 (3.90-5.20) Hemoglobin 9.8g/dL (12.0-15.6) Hematocrit 30.6% (35.0-46.0) Mean Corpuscular Volume 91.1fL (81-100) Mean Corpuscular Hemoglobin 29.2pg (27.0-35.0) Mean Corpuscular Hemoglobin Concent 32.0% (32.0-37.0) Red Cell Distribution Width 15.8% (12.3-15.4) Platelet Count 464bil/L (150-400) Neutrophils (%) (Auto) 61.2% (40-74) Lymphocytes (%) (Auto) 20.8% (14-46) Monocytes (%) (Auto) 14.0% (4-12) Eosinophils (%) (Auto) 3.2% (0-5) Basophils (%) (Auto) 0.3% (0-3) Erythrocyte Sedimentation Rate 69mm/hr (0-40) Prothrombin Time 10.6sec (8.1-12.5) Prothromb Time International Ratio 0.99ratio Sodium Level 138mEq/L (134-144) Potassium Level 4.1mEq/L (3.5-5.2) Chloride Level 101mEq/L (97-108) Carbon Dioxide Level 24mmol/L (18-29) Blood Urea Nitrogen 12mg/dL (8-27) Creatinine 0.56mg/dL (0.57-1.00) Estimat Glomerular Filtration Rate 147mL/min (>59) Glucose Level 119mg/dL (60-99) Calcium Level 9.1mg/dL (8.5-10.1) Phosphorus Level 4.3mg/dL (2.5-4.9) Magnesium Level 2.0mg/dL (1.6-2.6) Total Bilirubin 0.3mg/dL (0.0-1.2) Aspartate Amino Transf (AST/SGOT) 18U/L (0-50) Alanine Aminotransferase (ALT/SGPT) 13U/L (0-32) Alkaline Phosphatase 58U/L (25-165) Total Protein 6.2g/dL (6.4-8.4) Albumin 3.0g/dL (3.4-5.0) Procalcitonin 0.05ng/mL (0.00-0.08) Body Fluid Source Synovial fluid Body Fluid Color Yellow (Clear) Body Fluid Appearance Hazy Body Fluid WBC 95724/mm3 Body Fluid RBC 31837/mm3 Body Fluid Polynuclear WBCs 100% Body Fluid Lymphocytes 0% Body Fluid Monocytes 0% Body Fluid Eosinophils 0% Body Fluid Basophils 0% Urine Color Yellow (YELLOW) Urine Appearance Hazy (CLEAR,HAZY) Urine pH 7.5 (5.0-8.0) Urine Specific [place] 1.005 (1.003-1.035) Urine Protein Negativemg/dL (NEG,TRACE) Urine Glucose (UA) Negativemg/dL (NEGATIVE) Urine Ketones Negativemg/dL (NEGATIVE) Urine Occult Blood Negative (NEGATIVE) Urine Nitrite Negative (NEGATIVE) Urine Bilirubin Negative (NEGATIVE) Urine Urobilinogen Normalmg/dL (NORMAL) Urine Leukocyte Esterase Negative (NEGATIVE) Urine RBC 0-2/hpf (0-2) Urine WBC 0-5/hpf (0-5) Urine Epithelial Cells None/hpf (NONE-MOD) Urine Crystals Amorphous phosphates Urine Bacteria None/hpf (NONE-FEW) Urine Hyaline Casts None/lpf (NONE) Urine Granular Casts None seen (NONE SEEN) Urine Waxy Casts None seen (NONE SEEN) Urine Red Blood Cell Casts None seen (NONE SEEN) Urine White Blood Cell Casts None seen (NONE SEEN) Urine Mucus None seen (None Seen) Urine Trichomonas None seen (NONE SEEN) Urine Yeast None (NONE SEEN) Urinalysis Comment None Urine Culture Reflexed Not indicated Microbiology 10/14/16 Blood Culture - Preliminary, Resulted NO GROWTH AFTER 24 HOURS 10/15/16 Gram Stain - Final, Resulted 10/15/16 Culture & Sensitivity, Resulted Pending 10/15/16 MRSA (PCR) - Final, Complete 10/15/16 Gram Stain - Final, Resulted 10/15/16 Culture & Sensitivity, Resulted Pending 10/15/16 Anaerobic Culture, Resulted Pending Result Diagram: 10/15/16 0740 10/15/16 0740 General Appearance: Alert, Cooperative, No Acute Distress Extremities: No Compartment Syndrom Noted, Thigh & Calf Soft/Nontender Postop Sensory Motor: Distal Motor Intact, Movement in Toes, Distal Sensation Intact SURGICAL WOUND : Drain Location Body Site: Hip Wound Drainage Type: Wound Vac Activity: Activity per PT, Ambulate with PT (continue formal physical therapy for mobility, gait and safety. Weightbearing as tolerated on the right lower extremity using front wheeled walker.) Catheters: Urethral 2 Way Nolasco Assessment & Plan Impression Patient is a very pleasant and very deaf 86-year-old female who had undergone right bipolar hip hemiarthroplasty and presented back at the hospital with possible infection at the right hip. She is undergone an I&D on 10/15/[address] Michael Carrasquillo and is in recovery from that surgery at this time. Problems: Plan Postop day #1 from right hip I&D performed on 10/15/[address] Michael Carrasquillo. Labs were collected during the surgical process and have been processed with some results available this time. MRSA and gram stains are final and negative and blood cultures are read as no growth at 24 hours. Continue formal physical therapy for mobility, gait safety. Weightbearing as tolerated on the right lower extremity using front-wheeled walker. Current pain control on by mouth Tylenol. DVT prophylaxis is found to be discontinued at this time likely secondary to wound VAC in place. Left SCD is in place Nolasco is in place and working Dr. Santillan from infectious disease has consult the patient preoperatively with recommendations for perioperative antibiotics. Anticipate Dr. Santillan from infectious disease will follow this patient with treatment per lab results as available. Wound care orders are in place but patient has not been seen yet by wound care management team. Orthopedics thanks hospitalist service for their help in the medical management of this patient. Anticipate greater than 2 night stay. VTE Prophylaxis: Sub-Q Enoxaparin (Lovenox 30 mg subcutaneous daily had been ordered and is found to be discontinued at this time.), SCDs (left SCD in place) Robi Groves PA-C Oct 16, 2016 06:10
[2016-10-16 06:58] LABS: Phosphorus 3.6 mg/dL (2.5-4.9)
[2016-10-16 09:56] VITALS: PULSE 91
[2016-10-16 09:59] VITALS: BP 131/66; PULSE 91; RESP 16; O2SAT 94
[2016-10-16] MEDS: 0.9% Sodium Chloride 1,000 ML IV SCH (10:00)
--- NOTE | 2016-10-16 11:53 | NUR ---
Evaluation completed. Please go to "Notes" then click on "Assessments and Notes" (bottom left corner of screen). Then select appropriate discipline tab on top of screen.
--- NOTE | 2016-10-16 12:17 | PROG NOTE ---
[address] [address] PROGRESS NOTE PATIENT: SHAW IBRAHIM : 1930 MR#: [id number] ADMIT: 10/14/2016 JOB ID: [id number] DATE: 10/16/2016 INFECTIOUS DISEASE FOLLOWUP NOTE: REASON FOR FOLLOWUP: Staph aureus superficial infection overlying recent hip arthroplasty. INTERVAL HISTORY: The patient went to the operating room yesterday for debridement of her wound. Dr. Carrasquillo felt that this was a superficial wound and did not extend down to the joint implant. Following the surgery, a wound VAC was placed. The patient tells us this morning she is feeling pretty well. No fevers, chills, sweats, cough, shortness of breath, nausea, or vomiting. She has minimal pain at the site of the right hip wound VAC. PHYSICAL EXAMINATION: Reveals an afebrile woman, temp 36.7, pulse 91, respiratory rate 16, blood pressure 131/66, saturating 94% on room air. Lungs are clear. She still has a 1/6 aortic area systolic murmur. Abdomen benign. The right hip wound VAC is in good position and appears to be functioning well, and she has a Nolasco catheter at this time. She still has the protruding metal in her right jaw which appears uninfected at this point. LABORATORIES: Include white count 8500, creatinine 0.56. Urinalysis without white cells. The cultures from the synovial fluid aspiration are negative. The wound cultures from surgery are growing a Staph aureus and we do not have susceptibilities on the Staph yet but the MRSA screen of the nares is negative. IMPRESSION: This is an unfortunate elderly woman who had a traumatic fracture of the hip and a partial right hip arthroplasty one month ago. She presented from the [facility] facility with drainage and erythema from the wound. Cultures so far are growing Staph aureus and it appears this is a superficial infection. Though we have a negative MRSA screen of the nares, which is associated with a 90% negative predictive value, it is still possible she has MRSA so will continue broad-spectrum coverage. We can, however, drop the levofloxacin as we are now pretty sure this is not a gram-negative and I would avoid the vancomycin for fear of nephrotoxicity in this fragile woman. RECOMMENDATIONS: 1. Drop the current antibiotics which included vancomycin and levofloxacin. 2. Will start daptomycin 6 mg/kg once a day and follow her closely. 3. Will see the patient again on Wednesday, October 19. Thank you very much.
--- NOTE | 2016-10-16 12:52 | PCM.PNMED ---
Subjective Date of Service Oct 16, 2016 Subjective pt tolerated surgery well, denied SOB, mild pain on right hip prelim culture grew S.aureus no deep infection or hardware infection on CT MRSA neg. as per ID, dapto started, vancomycin d/ryan Exam Vital Signs Vital Sign - Last Date Time Temp Pulse Resp B/P Pulse Ox O2 Delivery O2 Flow Rate FiO2 10/16/16 10:07 Supplement Oxygen 10/16/16 09:59 36.7 91 16 131/66 94 Intake and Output 10/15/16 10/15/16 10/16/16 Cumulative From/Thru 15:00 23:00 07:00 10/14/16 17:37 - 10/16/16 06:29 Intake Total 1598 ml 425 ml 400 ml 2863 ml Output Total 1300 ml 700 ml 3100 ml Balance 1598 ml -875 ml -300 ml -237 ml Intake Oral 400 ml 400 ml 1240 ml IV Total 1598 ml 25 ml 1623 ml Output Urine Total 1300 ml 700 ml 3100 ml # Bowel Movements 0 0 Exam NAD, comfortably laying down on the bed no JVD, MMM, no LAD RRR, nl s1, s2 no mrg CTAB, no w,c S,ND,NT,normoactive BS+ warm, no edema, pulses 2/2 Rt hip: wound VAC IVs and Medications Medications Reviewed: Medications were reviewed in detail Lab and Diagnostics Result Diagram: 10/16/1643810/16/16438 X-Rays, CTs and MRIs PROCEDURE: X-RAY PELVIS W/LAT HIP (RT) ([id number]) INDICATIONS: RIGHT HIP PAIN. TECHNIQUE: AP pelvis and lateral view of the right hip acquired. COMPARISON: [facility], CR, XR PELVIS W LATERAL HIP RT, 09/28/2016, 14:08. FINDINGS: Bones: Patient is status post right hip arthroplasty, with hardware components in expected positions. The hip joint appears congruent. The visualized bony structures appear intact. Mild to moderate left hip joint degeneration. Advanced degenerative changes of the imaged lumbosacral spine are present. Soft tissues: Overlying postoperative changes are noted. No suspicious soft tissue densities. Multiple surgical clips and sutures within the pelvis. Dystrophic calcification versus calcific tendinitis adjacent to the left greater trochanter. Multiple phleboliths are seen within the pelvis. Previously seen areas of soft tissue air overlying the right hip have resolved. IMPRESSION: Unchanged alignment and appearance of the right hip, status post right hip arthroplasty. No fractures. Dictated by: Yadiel Saab A Interpreted: Yash Cornejo MD on 10/14/2016 at 15 :23 Approved by: Yash Cornejo M.D. on 10/14/2016 at 16:29 Assessment & Plan Acute, active recent Rt hip hemiarthroplasty on 09/28, POA, complicated by superficial staph infection on surgical site. CT/intraop findings excluded deep tissue infection, abscess, hardware infection. s/p I&D 10/15, tolerated well. -appreciate daily assessment by ortho, ID, continue wound VAC -awaits final culture result, continue daptomycin per ID Chronic, stable History of jaw osteomyelitis, status post artificial chin/jaw placement, stable on oral penicillin. PCN V 500mg tid, held per ID GERD, chronic, Continue home meds hx of gout mostly on Left ankle joint, currently not active, consider cochicine if active HTN, continue home BB insomnia, reported, try zolpidem2.5 to 5mg prn dispo:pending, likely through the weeekends diet: soft diet dvt ppx:SCD DNR/DNI, per daughter, confirmed on admission VTE Prophylaxis: Sub-Q Enoxaparin (Lovenox 30 mg subcutaneous daily had been ordered and is found to be discontinued at this time.), SCDs (left SCD in place) VTE Mechanical Devices: Intermittant Pneumatic CD Time spent 35min Aman Arguello MD Oct 16, 2016 12:52 Aman Arguello MD Oct 16, 2016 12:52
[2016-10-16] MEDS: DAPTOMYCIN IV SCH (12:59)
[2016-10-16] MEDS: SODIUM CHLORIDE 0.9% IV SCH (12:59)
[2016-10-16] MEDS: Calcium Carbonate (Oyster Shell) 500 mg Tablet PO SCH (13:00)
--- NOTE | 2016-10-16 13:17 | NUR ---
A.fib/flutter Pt had episode of atrial flutter/fib into the 140's. Pt asymptomatic. Pt converted back to sinus low 100's before MD could be paged. Propranolol dose given. Continue telemetry and q1 hour monitoring. Bed in low, call light in reach. Addendum: 10/16/16 at 1504 by KAHLIL GILL RN Pt HR continuing to have bursts of a. fib/flutter into 140's. Pt still asymptomatic. MD gave orders for metoprolol 5mg, able to give Q5min x 3 if needed. Pt HR at 140, dose given. Will continue to monitor through telemetry and determine if more doses are needed. Addendum: 10/16/16 at 1600 by KAHLIL GILL RN HR has stayed SR since 1500. SR 76 at 1600. No more doses of metoprolol given.
[2016-10-16 14:41] VITALS: BP 129/67; PULSE 120; RESP 16; O2SAT 94
[2016-10-16] MEDS: Clotrimazole Troche 10 mg Tablet MT SCH ×2 (14:51→19:50)
[2016-10-16] MEDS: MeTOProlol 1 mg/mL 5 mL Inj IVPUSH SCH (14:52)
[2016-10-16] MEDS ORDERED: Vancomycin Serum Trough XX ONE (20:00)
[2016-10-16 20:09] VITALS: BP 117/57; PULSE 65; RESP 18; O2SAT 96
[2016-10-16] MEDS ORDERED: Vancomycin 1 Gm/200 mL NS Premix IV SCH (21:00)
[2016-10-17] VITALS (9 sets, daily range): BP systolic 107–133; BP diastolic 51–70; PULSE 61–167; RESP 16–18; O2SAT 91–96
[2016-10-17] MEDS: Sodium Chloride LOK Flush 10 mL Syringe IV SCH ×3 (00:30→16:08)
[2016-10-17] MEDS: 0.9% Sodium Chloride 1,000 ML IV SCH ×3 (01:08→23:25)
--- NOTE | 2016-10-17 04:14 | NUR ---
hip pain patient states very little pain. Declined offer of pain meds. Restoril given at HS for insomnia. Resting quietly overnight. no acute changes.
[2016-10-17 05:56] LABS: BASOPHILS % (AUTO) 0.3 % (0-3); EOSINOPHILS % (AUTO) 2.4 % (0-5); MONOCYTES % (AUTO) 14.5 % (4-12); Mean Corpuscular Hemoglobin 28.8 pg (27.0-35.0); Mean Corpuscular Volume 92.1 fL (81-100); NEUTROPHILS % (AUTO) 57.3 % (40-74); Platelet Count 418 bil/L (150-400)
[2016-10-17 06:33] LABS: Magnesium 1.9 mg/dL (1.6-2.6); Phosphorus 3.8 mg/dL (2.5-4.9)
[2016-10-17] MEDS: Pantoprazole 40 mg ER24 Tablet PO SCH (09:10)
[2016-10-17] MEDS: Clotrimazole Troche 10 mg Tablet MT SCH ×3 (09:10→20:19)
--- NOTE | 2016-10-17 09:41 | PCM.PNMED ---
Subjective Date of Service Oct 17, 2016 Subjective pt is doing okay, denied sob, mild Rt hip pain, afebrile cultures staph finding result pending tolerating daptomycin well. wound VAC on Exam Vital Signs Vital Sign - Last Date Time Temp Pulse Resp B/P Pulse Ox O2 Delivery O2 Flow Rate FiO2 10/17/16 09:15 36.8 61 16 120/70 95 Room Air Intake and Output 10/16/16 10/16/16 10/17/16 Cumulative From/Thru 15:00 23:00 07:00 10/14/16 17:37 - 10/17/16 06:01 Intake Total 1310 ml 1859 ml 6032 ml Output Total 1420 ml 900 ml 5420 ml Balance -110 ml 959 ml 612 ml Intake Oral 556 ml 350 ml 2146 ml IV Total 754 ml 1509 ml 3886 ml Output Urine Total 1420 ml 900 ml 5420 ml # Bowel Movements 1 0 1 Exam NAD, comfortably laying down on the bed no JVD, MMM, no LAD RRR, nl s1, s2 no mrg CTAB, no w,c S,ND,NT,normoactive BS+ warm, no edema, pulses 2/2 Rt hip: wound VAC IVs and Medications Medications Reviewed: Medications were reviewed in detail Lab and Diagnostics Result Diagram: 10/17/1643910/17/16439 X-Rays, CTs and MRIs PROCEDURE: X-RAY PELVIS W/LAT HIP (RT) ([id number]) INDICATIONS: RIGHT HIP PAIN. TECHNIQUE: AP pelvis and lateral view of the right hip acquired. COMPARISON: [facility], CR, XR PELVIS W LATERAL HIP RT, 09/28/2016, 14:08. FINDINGS: Bones: Patient is status post right hip arthroplasty, with hardware components in expected positions. The hip joint appears congruent. The visualized bony structures appear intact. Mild to moderate left hip joint degeneration. Advanced degenerative changes of the imaged lumbosacral spine are present. Soft tissues: Overlying postoperative changes are noted. No suspicious soft tissue densities. Multiple surgical clips and sutures within the pelvis. Dystrophic calcification versus calcific tendinitis adjacent to the left greater trochanter. Multiple phleboliths are seen within the pelvis. Previously seen areas of soft tissue air overlying the right hip have resolved. IMPRESSION: Unchanged alignment and appearance of the right hip, status post right hip arthroplasty. No fractures. Dictated by: Yadiel Saab [facility] Interpreted: Yash Cornejo MD on 10/14/2016 at 15 :23 Approved by: Yash Cornejo M.D. on 10/14/2016 at 16:29 Assessment & Plan Acute, active Recent Rt hip hemiarthroplasty on 09/28, POA, complicated by superficial staph infection on surgical site. CT/intraop findings excluded deep tissue infection, abscess, hardware infection. s/p I&D 10/15, tolerated well. -appreciate daily assessment by ortho, ID, continue wound VAC -awaits final culture result, continue daptomycin per ID Chronic, stable History of jaw osteomyelitis, status post artificial chin/jaw placement, stable on oral penicillin. PCN V 500mg tid, held per ID GERD, chronic, Continue home meds hx of gout mostly on Left ankle joint, currently not active, consider cochicine if active HTN, continue home BB insomnia, reported, try zolpidem2.5 to 5mg prn dispo:pending, likely through the weekends diet: soft diet dvt ppx:SCD DNR/DNI, per daughter, confirmed on admission VTE Prophylaxis: Sub-Q Enoxaparin (Lovenox 30 mg subcutaneous daily had been ordered and is found to be discontinued at this time.), SCDs (left SCD in place) VTE Mechanical Devices: Intermittant Pneumatic CD Time spent 35min Aman Arguello MD Oct 17, 2016 09:41
[2016-10-17] MEDS: MeTOProlol 1 mg/mL 5 mL Inj IVPUSH SCH (09:57)
[2016-10-17] MEDS: SODIUM CHLORIDE 0.9% IV SCH (10:06)
[2016-10-17] MEDS: DAPTOMYCIN IV SCH (10:06)
--- NOTE | 2016-10-17 11:08 | PCM.PNORTH ---
Subjective Date of Service: Oct 17, 2016 Visit Information: Reason for Visit Right Hip Infection Surgery/Surgery Date Post-Op Day # 2 Date of Admission: Oct 14, 2016 at 17:14 Hospital Day # Subjective Patient states her hip is feeling "okay" but she is very uncomfortable as she has gout in her foot. She states she can manage it at home with two pills but is only getting one pill in the hospital and is hoping she can get more of the medication. She does not know what medication she takes at home but knows what it looks like. Postop General: No Complaints, No Shortness of Breath, No Chest Pain Pain Management: PO Objective Exam Objective Patient laying in bed Vital Signs and I/O Vital Sign - Last Date Time Temp Pulse Resp B/P Pulse Ox O2 Delivery O2 Flow Rate FiO2 10/17/16 09:56 115 10/17/16 09:15 36.8 16 120/70 95 Room Air Intake and Output 10/16/16 10/16/16 10/17/16 Cumulative From/Thru 15:00 23:00 07:00 10/14/16 17:37 - 10/17/16 06:01 Intake Total 1310 ml 1859 ml 6032 ml Output Total 1420 ml 900 ml 5420 ml Balance -110 ml 959 ml 612 ml Intake Oral 556 ml 350 ml 2146 ml IV Total 754 ml 1509 ml 3886 ml Output Urine Total 1420 ml 900 ml 5420 ml # Bowel Movements 1 0 1 Lab & Micro Results Laboratory Tests Test 10/17/16 04:40 White Blood Count 7.8th/mm3 (3.8-10.1) Red Blood Count 3.02mil/mm3 (3.90-5.20) Hemoglobin 8.7g/dL (12.0-15.6) Hematocrit 27.8% (35.0-46.0) Mean Corpuscular Volume 92.1fL (81-100) Mean Corpuscular Hemoglobin 28.8pg (27.0-35.0) Mean Corpuscular Hemoglobin Concent 31.3% (32.0-37.0) Red Cell Distribution Width 15.9% (12.3-15.4) Platelet Count 418bil/L (150-400) Neutrophils (%) (Auto) 57.3% (40-74) Lymphocytes (%) (Auto) 25.1% (14-46) Monocytes (%) (Auto) 14.5% (4-12) Eosinophils (%) (Auto) 2.4% (0-5) Basophils (%) (Auto) 0.3% (0-3) Sodium Level 138mEq/L (134-144) Potassium Level 3.5mEq/L (3.5-5.2) Chloride Level 100mEq/L (97-108) Carbon Dioxide Level 23mmol/L (18-29) Blood Urea Nitrogen 9mg/dL (8-27) Creatinine 0.58mg/dL (0.57-1.00) Estimat Glomerular Filtration Rate 141mL/min (>59) Glucose Level 127mg/dL (60-99) Calcium Level 8.7mg/dL (8.5-10.1) Phosphorus Level 3.8mg/dL (2.5-4.9) Magnesium Level 1.9mg/dL (1.6-2.6) Total Bilirubin 0.3mg/dL (0.0-1.2) Aspartate Amino Transf (AST/SGOT) 15U/L (0-50) Alanine Aminotransferase (ALT/SGPT) 9U/L (0-32) Alkaline Phosphatase 53U/L (25-165) Total Protein 5.5g/dL (6.4-8.4) Albumin 2.7g/dL (3.4-5.0) Procalcitonin 0.04ng/mL (0.00-0.08) Microbiology 10/14/16 Blood Culture - Preliminary, Resulted No growth at 2 days; culture examined... 10/15/16 Gram Stain - Final, Resulted 10/15/16 Culture & Sensitivity - Preliminary, Resulted 10/15/16 MRSA (PCR) - Final, Complete 10/15/16 Gram Stain - Final, Resulted 10/15/16 Culture & Sensitivity - Preliminary, Resulted Staphylococcus Aureus 10/15/16 Anaerobic Culture - Preliminary, Resulted Result Diagram: 10/17/1643910/17/16439 General Appearance: Alert, Oriented X3, Cooperative, No Acute Distress Extremities: Distal Pulses Palpable, No Compartment Syndrom Noted, Thigh & Calf Soft/Nontender Postop Sensory Motor: Distal Motor Intact, Movement in Toes, Distal Sensation Intact, NVI Distally SURGICAL WOUND : Drain Location Body Site: Hip Wound Drainage Type: Wound Vac Activity: Activity per PT, Ambulate with PT (continue formal physical therapy for mobility, gait and safety. Weightbearing as tolerated on the right lower extremity using front wheeled walker.) Assessment & Plan Impression POD#2 I&D of right hip Problems: Plan Weightbearing: Weightbearing as tolerated for a walker DVT prophylaxis: None at the moment - thought to be due to the wound vac placement Physical therapy for transfers, progressive ambulation, strengthening Wound care: Wound vac in place. Anticipating wound vac change Wednesday by wound care as they are not in on s. If patient d/c before then, likely it will need to be changed in a wound care clinic. Analgesia: Tylenol PO Discharge plan: Discharge home vs SNF in 1-2 days. Follow-up plan: [facility] with Gunjan Zamarripa PA-C for wound check one week postoperatively. VTE Prophylaxis: Sub-Q Enoxaparin (Lovenox 30 mg subcutaneous daily had been ordered and is found to be discontinued at this time.), SCDs (left SCD in place) Gunjan Zamarripa PA-C Oct 17, 2016 10:56
[2016-10-17] MEDS: Calcium Carbonate (Oyster Shell) 500 mg Tablet PO SCH (12:34)
--- NOTE | 2016-10-17 12:54 | PROG NOTE ---
[address] [address] PROGRESS NOTE PATIENT: SHAW IBRAHIM : 1930 MR#: [id number] ADMIT: 10/14/2016 JOB ID: [id number] DATE: 10/17/2016 INFECTIOUS DISEASE FOLLOW UP NOTE: REASON FOR FOLLOWUP: MSSA superficial infection overlying right hip arthroplasty incision. INTERVAL HISTORY: Right hip arthroplasty.infected incision. INTERVAL HISTORY: The patient reports no fevers, chills, or sweats overnight. No cough, shortness of breath, nausea, vomiting, diarrhea. She has minimal pain at the site of her right hip Wound VAC. PHYSICAL EXAMINATION: Reveals an afebrile woman, temperature 36.8, pulse 115, respiratory rate 16, blood pressure 120/70. She is saturating well on room air. In no acute distress. She has a protruding metal from the right mandible which does not appear infected. Her lungs are clear. Cardiac tones regular at this time. Of note, it sounds as if they were not earlier according to the patient's report. The abdomen is soft and nontender. There is a wound VAC over the right lateral hip and no surrounding cellulitis is noted. LABORATORIES: Include a white count of 7800. Creatinine is 0.58. LFTs are normal. Albumin 2.7. The culture of the synovial fluid that was done on the was negative. Blood cultures were likewise negative but the superficial cultures from the debridement of the subcutaneous infection overlying the arthroplasty is growing MSSA. I have asked the lab to do a susceptibility to daptomycin as this patient does have a confusing history of CEPHALOSPORIN allergy which makes our choice of antibiotics a bit difficult. IMPRESSION: No evidence for infection of the arthroplasty or deep joint space itself but rather this appears to be a superficial MSSA infection. 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 She instead received vanco and this case may serve to illustrate why we prefer to give cefazolin at least in part as the antibiotic prophylaxis for total joints as it is certainly better for MSSA though it obviously fails to cover MRSA. RECOMMENDATIONS: 1. Will continue with daptomycin for now. 2. I have asked the micro lab to do daptomycin susceptibilities. 3. Will probably send the patient on oral antibiotics when we are done with this hospital stay so I would not evans to put in a PICC line at this point. 4. Will continue to closely follow this patient with you. LORNA
--- NOTE | 2016-10-17 13:16 | NUR ---
HR Pt had increasing HR and converted to a.fib/flutter around 0845. Pt asymptomatic and states this can be normal for her as long as she can remember. She states "I can tell it's increasing because I can feel it in my ear." Propranolol dose given. HR increasing while working with PT at 0940 to 160-170's. notified and advised Metoprolol push. IV was infiltrated, new IV put in place and medication given. HR back to SR 70's at 1115. Telemetry in place. Bed in low, call light in reach, continue q1hour monitoring.
--- NOTE | 2016-10-17 13:41 | NUR ---
Social Work: Initial Assessment D: EMR reviewed. Pt is a 85 y/o female admitted for right hip infection per H&P. BARRY met with pt at bedside to conduct initial assessment. Pt was alert and oriented x3. SW explained role and wrote phone number on white board. Pt confirmed she has completed DPOA/advanced directive ppw and SW encourage pt to provide a copy to the hospital. Pt gave verbal consent to contact her daughter/DPOA Keely Rodriguez ([phone]) for discharge planning. Pt has no hx of HH. Pt has h[facility] [place] [facility]. Pt has no LTC or VA insurance. Pt is independent with ADLs. Pt does not use any DME. Pt does not drive. Pt is independent at baseline. Pt lives alone in an apartment with elevator access and no stairs to enter. Pt was recently accepted at [facility] [place] fracture per last hospital stay. Pt completed rehab at [facility] and returned home. Pt was admitted to hospital after returning home for right hip infection. PT noted that pt ambulated 200 ft with FWW on 10/16. PT recommends pt return home with HH for RN for wound vac. BARRY spoke with Ortho PA who stated that pt can be scheduled at outpt wound care clinic for wound care. stated that HH for RN needs is medically necessary. BARRY requested MD order for HH. SW will await MD order and follow-up with pt regarding HH. A: Pt for whom HH has been deemed medically necessary. P: MD stated that HH for RN needs is medically necessary. BARRY requested MD order for HH. SW will await MD order and follow-up with pt regarding HH. XIOMY Esposito Addendum: 10/17/16 at 1348 by HARRY THOMPSON Amended: Links added. Addendum: 10/17/16 at 1349 by HARRY WATERMAN SS Pt's insurance is [employer] and PCP is Angel Estes MD Addendum: 10/17/16 at 1736 by HARRY THOMPSON Pt did not come from home. Pt came from [facility]. BARRY to follow-up with pt and family regarding rtrn to [facility]. BARRY confirmed pt will be accepted at [facility] with Dr. Baker to follow if pt decides to return to [facility].
[2016-10-17] MEDS ORDERED: Vancomycin Serum Trough XX ONE (17:00)
[2016-10-18] VITALS (10 sets, daily range): BP systolic 107–139; BP diastolic 53–65; PULSE 75–85; RESP 14–18; O2SAT 91–96
[2016-10-18] MEDS: Sodium Chloride LOK Flush 10 mL Syringe IV SCH ×3 (01:45→17:42)
--- NOTE | 2016-10-18 05:39 | NUR ---
hemovac intact, dressing change on Wednesday. RLE warm /pink. Repositioned for comfort. Denied need for pain meds tonight. Tele: sinus 82, did not convert to a-fib this shift. VSS, no acute changes.
[2016-10-18] MEDS: Pantoprazole 40 mg ER24 Tablet PO SCH (07:07)
--- NOTE | 2016-10-18 08:29 | NUR ---
pt requested puree diet this is her normal diet due to chewing problems
[2016-10-18] MEDS: Clotrimazole Troche 10 mg Tablet MT SCH ×4 (08:30→20:01)
--- NOTE | 2016-10-18 08:30 | NUR ---
wound vac unsealed bio-occlusive dressing wore through around disc, patched with multiple Tegaderms, appears to be functioning at this time at 125mmhg
--- NOTE | 2016-10-18 08:50 | NUR ---
RACHAEL signed by pt at bedside
--- NOTE | 2016-10-18 08:53 | PCM.PNMED ---
Subjective Date of Service Oct 18, 2016 Subjective pt remained stable, on Wound VAC culture showed MSSA, no sensitvity on dapto Exam Vital Signs Vital Sign - Last Date Time Temp Pulse Resp B/P Pulse Ox O2 Delivery O2 Flow Rate FiO2 10/18/16 08:38 76 10/18/16 05:00 36.9 16 132/65 94 Room Air Intake and Output 10/17/16 10/17/16 10/18/16 Cumulative From/Thru 15:00 23:00 07:00 10/14/16 17:37 - 10/18/16 06:36 Intake Total 650 ml 836 ml 7518 ml Output Total 2100 ml 1000 ml 8520 ml Balance -1450 ml -164 ml -1002 ml Intake Oral 650 ml 836 ml 3632 ml IV Total 3886 ml Output Urine Total 2100 ml 1000 ml 8520 ml # Bowel Movements 0 0 1 Exam NAD, comfortably laying down on the bed no JVD, MMM, no LAD RRR, nl s1, s2 no mrg CTAB, no w,c S,ND,NT,normoactive BS+ warm, no edema, pulses 2/2 Rt hip: wound VAC IVs and Medications Medications Reviewed: Medications were reviewed in detail Lab and Diagnostics Result Diagram: 10/17/16 04410/17/16 044 X-Rays, CTs and MRIs PROCEDURE: X-RAY PELVIS W/LAT HIP (RT) ([id number]) INDICATIONS: RIGHT HIP PAIN. TECHNIQUE: AP pelvis and lateral view of the right hip acquired. COMPARISON: [facility], CR, XR PELVIS W LATERAL HIP RT, 09/28/2016, 14:08. FINDINGS: Bones: Patient is status post right hip arthroplasty, with hardware components in expected positions. The hip joint appears congruent. The visualized bony structures appear intact. Mild to moderate left hip joint degeneration. Advanced degenerative changes of the imaged lumbosacral spine are present. Soft tissues: Overlying postoperative changes are noted. No suspicious soft tissue densities. Multiple surgical clips and sutures within the pelvis. Dystrophic calcification versus calcific tendinitis adjacent to the left greater trochanter. Multiple phleboliths are seen within the pelvis. Previously seen areas of soft tissue air overlying the right hip have resolved. IMPRESSION: Unchanged alignment and appearance of the right hip, status post right hip arthroplasty. No fractures. Dictated by: Yadiel Choffel RRA Interpreted: Yash Cornejo MD on 10/14/2016 at 15 :23 Approved by: Yash Cornejo M.D. on 10/14/2016 at 16:29 Assessment & Plan Acute, active Recent Rt hip hemiarthroplasty on 09/28, POA, complicated by superficial staph infection on surgical site. CT/intraop findings excluded deep tissue infection, abscess, hardware infection. s/p I&D 10/15, tolerated well. -appreciate daily assessment by ortho, ID, continue wound VAC -final culture showed MSSA, however pt has severe allergy to Ceftriaxone, likely to continue daptomycin per ID, please coordinate with ID tomorrow for regimen. Chronic, stable History of jaw osteomyelitis, status post artificial chin/jaw placement, stable on oral penicillin. PCN V 500mg tid, held per ID GERD, chronic, Continue home meds hx of gout mostly on Left ankle joint, currently not active, consider cochicine if active HTN, continue home BB insomnia, reported, try zolpidem2.5 to 5mg prn dispo:possible d/c tomorrow, follow up with ortho and ID, follow up with Wound care diet: soft diet dvt ppx:SCD DNR/DNI, per daughter, confirmed on admission VTE Prophylaxis: Sub-Q Enoxaparin (Lovenox 30 mg subcutaneous daily had been ordered and is found to be discontinued at this time.), SCDs (left SCD in place) VTE Mechanical Devices: Intermittant Pneumatic CD Time spent 35min Aman Arguello MD Oct 18, 2016 08:53
--- NOTE | 2016-10-18 11:08 | PCM.PNORTH ---
Subjective Date of Service: Oct 18, 2016 Visit Information: Reason for Visit Right Hip Infection Surgery/Surgery Date Post-Op Day # Date of Admission: Oct 14, 2016 at 17:14 Hospital Day # Subjective Pt is s/p day 3 right hip I&D. Pt states she is doing well. Her right foot and hip are a little achy but she is doing well now. She would like to know the plan and definitely would like to go home soon, not SNF. Postop General: No Complaints, No Shortness of Breath, No Chest Pain Pain Management: PO Objective Exam Objective Pt is alert and oriented x3, answering questions appropriately. Lying down in be comfortably. Would vac is intact with minimal output in tube, minimal drainage. Calf is soft and non-tender. Able to wiggle toes, sensation intact. Vital Signs and I/O Vital Sign - Last Date Time Temp Pulse Resp B/P Pulse Ox O2 Delivery O2 Flow Rate FiO2 10/18/16 09:06 36.5 76 14 129/63 91 Room Air Intake and Output 10/17/16 10/17/16 10/18/16 Cumulative From/Thru 14:59 22:59 06:59 10/14/16 17:37 - 10/18/16 06:36 Intake Total 650 ml 836 ml 7518 ml Output Total 2100 ml 1000 ml 8520 ml Balance -1450 ml -164 ml -1002 ml Intake Oral 650 ml 836 ml 3632 ml IV Total 3886 ml Output Urine Total 2100 ml 1000 ml 8520 ml # Bowel Movements 0 0 1 Lab & Micro Results Microbiology 10/14/16 Blood Culture - Preliminary, Resulted No growth at 2 days; culture examined... 10/15/16 Gram Stain - Final, Resulted 10/15/16 Culture & Sensitivity - Preliminary, Resulted 10/15/16 MRSA (PCR) - Final, Complete 10/15/16 Gram Stain - Final, Resulted 10/15/16 Culture & Sensitivity - Preliminary, Resulted Staphylococcus Aureus 10/15/16 Anaerobic Culture - Preliminary, Resulted Result Diagram: 10/17/16 0440 10/17/16 0440 SURGICAL WOUND : Drain Location Body Site: Hip Wound Drainage Type: Wound Vac Activity: Activity per PT, Ambulate with PT (continue formal physical therapy for mobility, gait and safety. Weightbearing as tolerated on the right lower extremity using front wheeled walker.) Assessment & Plan Impression s/p day 3 Right hip I&D. Pt doing well, would like to go home tomorrow. Did well with Physical therapy who stated she could go home if not carrying the big wound vac. Problems: Plan Weightbearing: Weightbearing as tolerated for a walker DVT prophylaxis: None. Physical therapy for transfers, progressive ambulation, strengthening while in hospital. Pt did well and is cleared for home discharge. Wound care: Wound vac in place. Anticipating wound vac change Wednesday by wound care as they are not in on s.Pt would like something smaller or have this discontinued if not needed tomorrow. Analgesia: Tylenol PO Discharge plan: Discharge home tomorrow after seeing infectious disease and wound care. Follow-up plan: [facility] with Gunjan Zamarripa PA-C for wound check one week postoperatively. VTE Prophylaxis: Sub-Q Enoxaparin (Lovenox 30 mg subcutaneous daily had been ordered and is found to be discontinued at this time.), SCDs (left SCD in place) Angelito Merlos PA-C Oct 18, 2016 11:08
[2016-10-18] MEDS: 0.9% Sodium Chloride 1,000 ML IV SCH (11:55)
[2016-10-18] MEDS: DAPTOMYCIN IV SCH (13:11)
[2016-10-18] MEDS: SODIUM CHLORIDE 0.9% IV SCH (13:11)
[2016-10-18] MEDS: Calcium Carbonate (Oyster Shell) 500 mg Tablet PO SCH (13:14)
[2016-10-19] MEDS: 0.9% Sodium Chloride 1,000 ML IV SCH ×2 (00:08→12:55)
[2016-10-19 01:00] VITALS: BP 124/67; PULSE 81; RESP 16; O2SAT 94
[2016-10-19] MEDS: Sodium Chloride LOK Flush 10 mL Syringe IV SCH ×3 (01:00→16:30)
--- NOTE | 2016-10-19 02:04 | NUR ---
transfers Patient transferring from bed to BSC with little assistance. Pain managed well with Tylenol, no c/o of intolerable pain. Patient voiced concerns about "going home after all this time." She bounced back and forth on whether she felt ready. Many questions on whether she will be going with or without the wound vac. Will follow up in the am.
[2016-10-19 05:10] VITALS: BP 107/56; PULSE 73; RESP 16; O2SAT 97
[2016-10-19 05:50] LABS: BASOPHILS % (AUTO) 0.4 % (0-3); EOSINOPHILS % (AUTO) 4.7 % (0-5); MONOCYTES % (AUTO) 12.5 % (4-12); Mean Corpuscular Hemoglobin 29.2 pg (27.0-35.0); NEUTROPHILS % (AUTO) 49.8 % (40-74); Platelet Count 405 bil/L (150-400)
[2016-10-19 06:21] LABS: Magnesium 1.9 mg/dL (1.6-2.6); Phosphorus 4.2 mg/dL (2.5-4.9)
--- NOTE | 2016-10-19 07:54 | NUR ---
Wound Note 86 yo female with right hip wound post operative ALISHA seen for wound management today. Presents with right lateral hip under NPWT at this time. There is approx 350 ccs of bloody drainage in canister. Removal of NPWT system reveals open incision approx 9 cms L x 2 cm W x 2 cm D, distal incision remains closed primarily for another 9 -10 cms with suture umana slightly indurated and pustular but superficial. Main open area of the wound is subcutaneous fat and fascia, I do not find any tunneling or undermining with probing of the wound digitally. Wound is cleaned with saline and packed with moist gauze so that ortho surgical service can visualize the open wound, once this is completed I will replace gauze with black foam and restart NPWT at 125 mmhg. I have placed xeroform and duoderm to protect portion of incision which is still primarily closed. Home going unit will likely be authorized for discharge home today, will need home health services for dressing changes on a q 48-72 hour basis and follow up at the wound center for wound care on a once a week to every other week basis.
[2016-10-19] MEDS: Clotrimazole Troche 10 mg Tablet MT SCH ×2 (08:30→15:17)
[2016-10-19 09:50] VITALS: BP 137/68; PULSE 76; RESP 18; O2SAT 96
--- NOTE | 2016-10-19 09:56 | PCM.PNORTH ---
Subjective Date of Service: Oct 19, 2016 Visit Information: Reason for Visit Right Hip Infection Surgery/Surgery Date right hip I&D Post-Op Day # 4 Date of Admission: Oct 14, 2016 at 17:14 Hospital Day # Subjective Patient reports she is having minimal pain. Wound care nurse was in this morning and removed the current wound VAC. A simple dressings was applied so that it could be examined today. Patient feels that she is doing quite well. She would like to go home. She states home health nursing will attend to the wound VAC. Postop General: No Complaints, No Shortness of Breath, No Chest Pain Pain Management: PO Objective Exam Objective Patient is seen lying in bed Vital Signs and I/O Vital Sign - Last Date Time Temp Pulse Resp B/P Pulse Ox O2 Delivery O2 Flow Rate FiO2 10/19/16 09:50 36.6 76 18 137/68 96 Room Air Intake and Output 10/18/16 10/18/16 10/19/16 Cumulative From/Thru 15:00 23:00 07:00 10/14/16 17:37 - 10/19/16 06:38 Intake Total 660 ml 536 ml 8714 ml Output Total 1100 ml 1050 ml 88184 ml Balance -440 ml -514 ml -1956 ml Intake Oral 660 ml 536 ml 4828 ml IV Total 3886 ml Output Urine Total 1100 ml 1050 ml 29753 ml # Bowel Movements 0 0 1 Lab & Micro Results Laboratory Tests Test 10/19/16 04:40 White Blood Count 7.2th/mm3 (3.8-10.1) Red Blood Count 3.12mil/mm3 (3.90-5.20) Hemoglobin 9.1g/dL (12.0-15.6) Hematocrit 28.7% (35.0-46.0) Mean Corpuscular Volume 92.0fL (81-100) Mean Corpuscular Hemoglobin 29.2pg (27.0-35.0) Mean Corpuscular Hemoglobin Concent 31.7% (32.0-37.0) Red Cell Distribution Width 15.6% (12.3-15.4) Platelet Count 405bil/L (150-400) Neutrophils (%) (Auto) 49.8% (40-74) Lymphocytes (%) (Auto) 32.2% (14-46) Monocytes (%) (Auto) 12.5% (4-12) Eosinophils (%) (Auto) 4.7% (0-5) Basophils (%) (Auto) 0.4% (0-3) Sodium Level 140mEq/L (134-144) Potassium Level 3.5mEq/L (3.5-5.2) Chloride Level 100mEq/L (97-108) Carbon Dioxide Level 25mmol/L (18-29) Blood Urea Nitrogen 14mg/dL (8-27) Creatinine 0.68mg/dL (0.57-1.00) Estimat Glomerular Filtration Rate 117mL/min (>59) Glucose Level 117mg/dL (60-99) Calcium Level 9.1mg/dL (8.5-10.1) Phosphorus Level 4.2mg/dL (2.5-4.9) Magnesium Level 1.9mg/dL (1.6-2.6) Total Bilirubin 0.2mg/dL (0.0-1.2) Aspartate Amino Transf (AST/SGOT) 18U/L (0-50) Alanine Aminotransferase (ALT/SGPT) 12U/L (0-32) Alkaline Phosphatase 55U/L (25-165) Total Protein 5.8g/dL (6.4-8.4) Albumin 2.9g/dL (3.4-5.0) Procalcitonin 0.05ng/mL (0.00-0.08) Microbiology 10/14/16 Blood Culture - Preliminary, Resulted No growth at 2 days; culture examined... 10/15/16 Gram Stain - Final, Resulted 10/15/16 Culture & Sensitivity - Preliminary, Resulted 10/15/16 MRSA (PCR) - Final, Complete 10/15/16 Gram Stain - Final, Resulted 10/15/16 Culture & Sensitivity - Preliminary, Resulted Staphylococcus Aureus 10/15/16 Anaerobic Culture - Preliminary, Resulted Result Diagram: 10/19/1643910/19/16439 General Appearance: Alert, Oriented X3, Cooperative, No Acute Distress Extremities: Distal Pulses Palpable, No Compartment Syndrom Noted, Thigh & Calf Soft/Nontender Postop Sensory Motor: Distal Motor Intact, NVI Distally SURGICAL WOUND : Wound Location/Description Right hip: Surgical wound has a damp dressing in the open wound. There is no erythema or purulence seen. The wound edges are nontender. There is an occlusive dressing over the distal portion of the wound. Activity: Activity per PT, Ambulate with PT (continue formal physical therapy for mobility, gait and safety. Weightbearing as tolerated on the right lower extremity using front wheeled walker.) Catheters: None Assessment & Plan Impression POD #4 status post Right hip I&D Cultures + MSSA Problems: Plan Plan Weightbearing: Weightbearing as tolerated for a walker DVT prophylaxis: None. Physical therapy for transfers, progressive ambulation, strengthening while in hospital. Pt did well and is cleared for home discharge. Wound care: Wound care nurse will place new wound VAC dressing today. Analgesia: Tylenol PO, oxycodone 5 mg Discharge plan: Discharge home today after seeing infectious disease and wound care. Follow-up plan: [facility] with Gunjan Zamarripa PA-C for wound check one week postoperatively. Pain Management: Oxycodone, Tylenol VTE Prophylaxis: Sub-Q Enoxaparin (Lovenox 30 mg subcutaneous daily had been ordered and is found to be discontinued at this time.), SCDs (left SCD in place) Resuscitation Status: DNR/DNI:Do Not Resuscitate/Intubate Beckett RidgeTami Rand PA-C Oct 19, 2016 09:56
[2016-10-19] MEDS ORDERED: Magnesium Hydroxide 355 mL Oral Suspension PO PRN (10:15)
[2016-10-19] MEDS ORDERED: Polyethylene Glycol (PEG) 17 Gm Powder PO PRN (10:15)
[2016-10-19 10:16] VITALS: PULSE 76
[2016-10-19 10:31] VITALS: BP 132/64; PULSE 75
[2016-10-19] MEDS: Pantoprazole 40 mg ER24 Tablet PO SCH (10:32)
[2016-10-19] MEDS: DAPTOMYCIN IV SCH (10:33)
[2016-10-19] MEDS: SODIUM CHLORIDE 0.9% IV SCH (10:33)
[2016-10-19] MEDS: Calcium Carbonate (Oyster Shell) 500 mg Tablet PO SCH (10:34)
--- NOTE | 2016-10-19 11:46 | PCM.DIMED ---
Discharge Instructions Date of Service Oct 19, 2016 Dates of Hospitalization Oct 14, 2016 at 17:14 Discharge Diagnosis Discharge Diagnosis s/p R hip I+D Diet Discharge Diet: Heart Healthy Call your provider Call your provider for: Fever or Chills, Other (worsening pain/drainage from hip) Patient Instructions Follow-up plan [facility] with Gunjan Zamarripa PA-C for wound check one week postoperatively. Follow-up Provider: Angel Estes MD Follow-up with PCP in: Other (call probably as previously) Provider: Issa Dyer MD Follow-up in: Other ([facility] with Gunjan Zamarripa PA-C for wound check one week postoperatively.) CHF Clinic: 6 weeks Abimael Enrique MD Oct 19, 2016 11:46
--- NOTE | 2016-10-19 11:50 | NUR ---
Social Work: Readiness for Discharge D: EMR reviewed. Pt is on day 5 of hospitalization. BARRY spoke with Wound Care this AM regarding pt's discharge with HH and wound vac. Wound Care stated they will schedule follow-up outpt appt for wound care. Wound Care also confirmed that the wound vac pt will be discharge with can be handled by HH RN. BARRY received MD order for HH RN PT 3x/week. BARRY provided pt and family with choice list. Pt and family did not have HH preference and BARRY selected [facility] based on [facility] Vendor Calendar. BARRY placed referral T/C to Shira at [facility] and notified Shira of pt's discharge today. BARRY provided access. BARRY received completed F2F from . Shira confirmed she will pick-up F2F before 1400 and meet with pt and family at bedside. Shira confirmed [facility] can accept pt with wound vac. Pt's daughter requested rx for 4WW as recommended my MD. BARRY gave daughter rx from MD so daughter could black pickler 4WW before pt discharges. Daughter would like to shop around and will take the rx to find the best carvalho/option. BARRY will continue to follow for needs. A: Pt for whom HH has been deemed medically necessary. P: Pt to discharge today with daughter via POV. Pt to open with [facility] RN PT 3x/week. Shira from [place] will pick-up F2F from BARRY on [facility] today. BARRY provided access. BARRY will continue to follow for needs. XIOMY Esposito
[2016-10-19 12:51] VITALS: BP 151/69; PULSE 71; RESP 18; O2SAT 96
[2016-10-19] MEDS ORDERED: CLIN-78 PO (13:22)
--- NOTE | 2016-10-19 13:46 | NUR ---
Social Work: Discharge D: EMR reviewed. Pt is on day 5 of hospitalization. Shira from [facility] retrieved completed F2F and visited pt and family. [facility] will open with family tomorrow. Pt to discharge home today with wound vac and follow-up outpt appointment at wound care clinic. Pt and family agreeable to discharge with [facility] for RN PT 3x/week. Pt's daughter Tami to provide pt transport home via POV today. SW will continue to follow. A: Pt for whom RN PT 3x/week has been deemed medically necessary. P: Pt and family agreeable to discharge with [facility] for RN PT 3x/week. Pt's daughter Tami to provide pt transport home via POV today. SW will continue to follow. XIOMY Esposito
--- NOTE | 2016-10-19 15:08 | PCM.DC.MED ---
Discharge Summary Date of Service Oct 19, 2016 Dates of Hospitalization Date of Hospital Admission Oct 14, 2016 at 17:14 Date of Discharge: Oct 19, 2016 Providers: Admitting Physician: Aman Arguello MD Primary Care Physician: Angel Estes MD Attending Physician: Aman Arguello MD Diagnosis at Time of Discharge Diagnosis at Time of Discharge s/p R hip I+D Consultations ortho Dr Goodwin, ID Dr Santillan Procedures XRay, CTs & MRIs PROCEDURE: X-RAY PELVIS W/LAT HIP (RT) ([id number]) INDICATIONS: RIGHT HIP PAIN. TECHNIQUE: AP pelvis and lateral view of the right hip acquired. COMPARISON: [facility], CR, XR PELVIS W LATERAL HIP RT, 09/28/2016, 14:08. FINDINGS: Bones: Patient is status post right hip arthroplasty, with hardware components in expected positions. The hip joint appears congruent. The visualized bony structures appear intact. Mild to moderate left hip joint degeneration. Advanced degenerative changes of the imaged lumbosacral spine are present. Soft tissues: Overlying postoperative changes are noted. No suspicious soft tissue densities. Multiple surgical clips and sutures within the pelvis. Dystrophic calcification versus calcific tendinitis adjacent to the left greater trochanter. Multiple phleboliths are seen within the pelvis. Previously seen areas of soft tissue air overlying the right hip have resolved. IMPRESSION: Unchanged alignment and appearance of the right hip, status post right hip arthroplasty. No fractures. Dictated by: Yadiel Saab [facility] Interpreted: Yash Cornejo MD on 10/14/2016 at 15 :23 Approved by: Yash Cornejo M.D. 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 pt was sent from SNF due to discharge on the dressing site. As per pt, it started to become pulurent for 2days, didn't particularly notice more pain, pt denied fever, chills. pt had good appetite, ambulating with 75% wt bearing, denied n/v/c/d. pt was noted to have wbc12.2 a week ago. Hospital Course 86-year-old female I have met on date of discharge. She apparently has been stable but came in from the wound care clinic as indicated above, I&D was done of seroma was growing MSSA. She has been on daptomycin while she is here for transitioned over to clindamycin and going home. Surprisingly is ambulatory and her pain is adequately controlled she has good support system at home and she is going to go home with a small wound VAC that she can ambulate with a 4 wheel walker with brakes and home health. Recent Rt hip hemiarthroplasty on 09/28, POA, complicated by superficial staph infection on surgical site. CT/intraop findings excluded deep tissue infection, abscess, hardware infection. s/p I&D 10/15, tolerated well. -appreciate daily assessment by ortho, ID, continue wound VAC -final culture showed MSSA, however pt has severe allergy to Ceftriaxone, on daptomycin per ID in hospital, changed over to clindamycin 300 mg by mouth 4 times a day for 10 more days as per Dr. Santillan/ID thank you., Chronic, stable History of jaw osteomyelitis, status post artificial chin/jaw placement, stable on oral penicillin. PCN V 500mg tid, held per ID, then resume per ID or as directed. GERD, chronic, Continue home meds hx of gout mostly on Left ankle joint, currently not active, consider cochicine if active HTN, continue home BB insomnia, reported, try zolpidem2.5 to 5mg prn dispo:possible d/c tomorrow, follow up with ortho and ID, follow up with Wound care diet: soft diet dvt ppx:SCD DNR/DNI, per daughter, confirmed on admission Exam Vital Signs (Last) Date Time Temp Pulse Resp B/P Pulse Ox O2 Delivery O2 Flow Rate FiO2 10/19/16 12:51 36.7 71 18 151/69 96 Room Air Exam Gen.- A+ O 3 no apparent distress. Eyes- open conjunctiva clear, pupils equal nonicteric Mouth- oral mucosa moist, no exudate, deformity of jaw consistent with history ENT- ears normal, nose normal Neck- supple/trach midline CVS- RRR Lungs- normal rate no accessory muscles GI- generous Musc- moving 4 no obvious deformity Neuro- cranial nerves II through XII intact to gross examination, nonfocal Skin- warm and dry, no rashes/lesions/wounds noted Large open wound right hip 10 cm, 5 cm open packed, apparently clear serous fluid draining, wound VAC going on. Psych- pleasant and appropriate, Test 10/14/16 17:55 10/15/16 07:40 10/15/16 10:47 10/15/16 16:00 C-Reactive Protein 6.4mg/dL (0.0-0.5) Hold Dawson Top Tube Received (Received) Erythrocyte Sedimentation Rate 69mm/hr (0-40) Prothrombin Time 10.6sec (8.1-12.5) Prothromb Time International Ratio 0.99ratio Body Fluid Source Synovial fluid Body Fluid Color Yellow (Clear) Body Fluid Appearance Hazy Body Fluid WBC 79815/mm3 Body Fluid RBC 27400/mm3 Body Fluid Polynuclear WBCs 100% Body Fluid Lymphocytes 0% Body Fluid Monocytes 0% Body Fluid Eosinophils 0% Body Fluid Basophils 0% Urine Color Yellow (YELLOW) Urine Appearance Hazy (CLEAR,HAZY) Urine pH 7.5 (5.0-8.0) Urine Specific [place] 1.005 (1.003-1.035) Urine Protein Negativemg/dL (NEG,TRACE) Urine Glucose (UA) Negativemg/dL (NEGATIVE) Urine Ketones Negativemg/dL (NEGATIVE) Urine Occult Blood Negative (NEGATIVE) Urine Nitrite Negative (NEGATIVE) Urine Bilirubin Negative (NEGATIVE) Urine Urobilinogen Normalmg/dL (NORMAL) Urine Leukocyte Esterase Negative (NEGATIVE) Urine RBC 0-2/hpf (0-2) Urine WBC 0-5/hpf (0-5) Urine Epithelial Cells None/hpf (NONE-MOD) Urine Crystals Amorphous phosphates Urine Bacteria None/hpf (NONE-FEW) Urine Hyaline Casts None/lpf (NONE) Urine Granular Casts None seen (NONE SEEN) Urine Waxy Casts None seen (NONE SEEN) Urine Red Blood Cell Casts None seen (NONE SEEN) Urine White Blood Cell Casts None seen (NONE SEEN) Urine Mucus None seen (None Seen) Urine Trichomonas None seen (NONE SEEN) Urine Yeast None (NONE SEEN) Urinalysis Comment None Urine Culture Reflexed Not indicated Test 10/19/16 04:40 White Blood Count 7.2th/mm3 (3.8-10.1) Red Blood Count 3.12mil/mm3 (3.90-5.20) Hemoglobin 9.1g/dL (12.0-15.6) Hematocrit 28.7% (35.0-46.0) Mean Corpuscular Volume 92.0fL (81-100) Mean Corpuscular Hemoglobin 29.2pg (27.0-35.0) Mean Corpuscular Hemoglobin Concent 31.7% (32.0-37.0) Red Cell Distribution Width 15.6% (12.3-15.4) Platelet Count 405bil/L (150-400) Neutrophils (%) (Auto) 49.8% (40-74) Lymphocytes (%) (Auto) 32.2% (14-46) Monocytes (%) (Auto) 12.5% (4-12) Eosinophils (%) (Auto) 4.7% (0-5) Basophils (%) (Auto) 0.4% (0-3) Sodium Level 140mEq/L (134-144) Potassium Level 3.5mEq/L (3.5-5.2) Chloride Level 100mEq/L (97-108) Carbon Dioxide Level 25mmol/L (18-29) Blood Urea Nitrogen 14mg/dL (8-27) Creatinine 0.68mg/dL (0.57-1.00) Estimat Glomerular Filtration Rate 117mL/min (>59) Glucose Level 117mg/dL (60-99) Calcium Level 9.1mg/dL (8.5-10.1) Phosphorus Level 4.2mg/dL (2.5-4.9) Magnesium Level 1.9mg/dL (1.6-2.6) Total Bilirubin 0.2mg/dL (0.0-1.2) Aspartate Amino Transf (AST/SGOT) 18U/L (0-50) Alanine Aminotransferase (ALT/SGPT) 12U/L (0-32) Alkaline Phosphatase 55U/L (25-165) Total Protein 5.8g/dL (6.4-8.4) Albumin 2.9g/dL (3.4-5.0) Procalcitonin 0.05ng/mL (0.00-0.08) Microbiology Results MSSA from abscess, blood and synovial fluid negative, MRSA screen negative Discharge Medications Discharge Medications Aspirin (Aspirin) 325 Mg Tablet 325 MG PO BID Prescribed by: KIYA HITCHCOCK DO Calcium Carbonate (Calcium) 600 Mg Tablet 600 MG PO DAILY (Reported) Cholecalciferol (Vitamin D3) (Vitamin D3) 1,000 Unit Tab.chew 1,000 UNIT PO DAILY (Reported) Clindamycin (Clindamycin) 300 Mg Capsule 300 MG PO QID Prescribed by: DOTTY CAST MD Clotrimazole (Clotrimazole) 10 Mg Donna 10 MG BUCCAL TID (Reported) Cyanocobalamin (Vitamin B12) 500 Mcg Tablet 1,000 MCG PO DAILY (Reported) Ferrous Sulfate (Ferrous Sulfate) 325 Mg Tablet 325 MG PO BID Prescribed by: KIYA HITCHCOCK DO Furosemide (Furosemide) 20 Mg Tab 20 MG PO QAM (Reported) Lactobacillus Acidophilus (Acidophilus Lactobacillus) 1 Each Capsule 1 CAPSULE PO BID (Reported) Niacinamide (Niacin) 500 Mg Tablet 500 MG PO TIDWM (Reported) Omeprazole Magnesium (Prilosec Otc) 20 Mg Tablet.dr 20 MG PO QAM (Reported) Penicillin V Potassium (Penicillin V Potassium) 500 Mg Tablet 500 MG PO BID ( Reported) Propranolol HCl (Propranolol HCl) 40 Mg Tablet 20 MG PO BID (Reported) Sennosides (Senna) 8.6 Mg Tablet 17.2 MG PO HS (Reported) As needed Acetaminophen (Acetaminophen) 325 Mg Capsule 650 MG PO Q4H PRN PRN For Pain ( Reported) Colchicine (Colcrys) 0.6 Mg Tablet 0.6 MG PO DAILY PRN PRN gout (Reported) Hydrocodone-Acetaminophen 5-300 mg (Hydrocodone-Acetaminophen 5-300 mg) 1 Each Tablet 1 TABLET PO Q4H PRN PRN For Pain Prescribed by: KIYA HITCHCOCK DO Polyethylene Glycol 3350 (Miralax) 17 Gm Powd.pack 17 GM PO DAILY PRN PRN For Constipation Prescribed by: KIYA HITCHCOCK DO Promethazine (Promethazine) 25 Mg Tablet 25 MG PO Q6H PRN PRN For Nausea/ Vomiting (Reported) Tramadol (Tramadol) 50 Mg Tablet 50 MG PO Q6H PRN PRN For Pain Prescribed by: KIYA HITCHCOCK DO Triazolam (Triazolam) 0.125 Mg Tablet 0.125 MG PO HS PRN PRN Insomnia (Reported ) Followup Plan Disposition: Home with home health Follow-up plan [facility] with Gunjan Zamarripa PA-C for wound check one week postoperatively. Patient will also see need to see infectious disease/Dr. Santillan prior to completing course of clindamycin or at least have follow-up/direction on whether to resume penicillin on completion of clindamycin. Discharge Diet: Heart Healthy Follow-up Provider: Angel Estes MD Follow-up with PCP in: Other (call probably as previously) Provider: Issa Dyer MD Follow-up in: Other ([facility] with Gunjan Zamarripa PA-C for wound check one week postoperatively.) CHF Clinic: 6 weeks Time spent Greater than 30 minutes copies to: Angel Estes MD, Andris E MD Oct 19, 2016 15:08
--- NOTE | 2016-10-19 17:25 | NUR ---
Discharge Patient discharged home. IV DC'd and intact. Discharge instructions given with daughter, Tami, present with no questions. Teaching included information on clindamycin, cellulites, and heart healthy diet. Allen from Wound clinic taught daughter and patient regarding wound vac. wound VAC intacted. Wound follow up appointment is on October 28 at 11:20 am. Patient and her daughter gathered all belongings. CUT OUT STITCHER escorted patient out via W/C.
--- NOTE | 2016-10-19 20:09 | PROG NOTE ---
[address] [address] PROGRESS NOTE PATIENT: SHAW IBRAHIM : 1930 MR#: [id number] ADMIT: 10/14/2016 JOB ID: [id number] DATE: 10/19/2016 REASON FOR FOLLOWUP: The superficial infection overlying right hip arthroplasty. INTERVAL HISTORY: The patient reports no fevers, chills, or sweats. No cough, shortness of breath, nausea, vomiting, diarrhea. Minimal pain in her right hip area where a wound VAC is present. PHYSICAL EXAMINATION: Reveals an afebrile woman. She has been really afebrile since her admission which is now five and a half days ago. Temp 36.7, pulse 71, respiratory rate 18, blood pressure 151/69, she is in no distress. Examination of the patient's mental status reveals it to be clear. The metal which juts out of her right chin from her prosthetic mandible appears uninfected. Her lungs are quite clear. Abdomen benign. Right hip has a wound VAC present over it. There is no surrounding cellulitis. LABORATORIES: Include white count 7200. Creatinine is 0.68. LFTs normal. Procalcitonin consistently 0. Micro studies are important here. Blood cultures negative. The synovial fluid aspirate that was done on the is culture negative at five days and final. The cultures from the superficial abscess yielded MSSA, which was quite a susceptible isolate overall. IMPRESSION: This patient has what appears to be simply a superficial though fairly severe infection over the site of her right hip arthroplasty. The patient has very significant CEPHALOSPORIN allergies and this gives me some pause in terms of picking oral antibiotics. The patient reports she has problems with chronic constipation and has never had Clostridium difficile, so I think clindamycin may be a good drug here. It has excellent penetration into skin, soft tissue and bony structures and has good MICs against this MSSA organism. RECOMMENDATIONS: 1. The patient already received her daily dose of daptomycin today, so I think she could be discharged at any time. 2. The discharge antibiotic should be clindamycin 300 q.i.d. for 10 days. 3. She will be followed up by Ortho, and I am sure they will contact me if there is any post discharge ID issues. 4. This case discussed with Dr. Enrique.
== END 2016-10-19 17:25 | disposition home health service (06) | DRG 502 ==
LOC: OSC 17:14
PROVIDERS: ADMIT Internal Medicine; ATTEND Internal Medicine
PROC: 0S993ZX Drainage of Right Hip Joint, Percutaneous Approach, Diagnostic (ICD-10-PCS; 2016-10-15)
PROC: 0J9L0ZZ Drainage of Right Upper Leg Subcutaneous Tissue and Fascia, Open Approach (ICD-10-PCS; principal; 2016-10-15 12:00)
DX: T84.51XA Infection and inflammatory reaction due to internal right hip prosthesis, initial encounter (principal); Z79.2 Long term (current) use of antibiotics; Z87.891 Personal history of nicotine dependence; Z96.698 Presence of other orthopedic joint implants; B95.61 Methicillin susceptible Staphylococcus aureus infection as the cause of diseases classified elsewhere; Z88.1 Allergy status to other antibiotic agents